=== PATIENT | female | born 1955 | race Caucasian/White ===

== ENCOUNTER 2017-02-15 08:39 | Inpatient (IN) | payer OTHER ==
[2017-02-15 08:57] VITALS: BMI 27.3
[2017-02-15] MEDS ORDERED: SODIUM CHLORIDE 1,000 ML IV STA ×3 (09:07→15:12)
[2017-02-15] MEDS ORDERED: ACETAMINOPHEN 1000 MG/100 ML VIAL (NON FORMULARY) IVPB ONE ×2 (09:07→15:01)
[2017-02-15] MEDS ORDERED: ACETAMINOPHEN INJECTION 100 ML IVPB ONE ×2 (09:15→15:02)
[2017-02-15 09:19] LABS: BASOPHIL 0.4 % (0-2.0); EOSINOPHIL 0.1 % (0-4.5); MCH 28.7 pg (25.7-33.7); MCHC 32.6 g/dl (32.0-36.0); MEAN CELL VOLUME 88.2 fl (80-96); MEAN PLT VOLUME 9.6 fl (7.5-11.1); NEUTROPHILS 81.1 % (42.8-82.8); PLATELET COUNT 185 K/MM3 (134-434); WHITE BLOOD COUNT 14.6 K/mm3 (4.0-10.0)
--- NOTE | 2017-02-15 09:32 | PDOC ---
History of Present Illness - General Chief Complaint: Syncope/Near Syncope Stated Complaint: WEAKNESS & VOMITING Time Seen by Provider: 02/15/17 08:46 History Source: Patient Exam Limitations: No Limitations - History of Present Illness Initial Comments: 02/15/17 09:07 61-year-old female presents to the ED with complaints of intermittent vomiting since yesterday. Patient states had 2 episodes yesterday and then one in the middle night. Patient states she got up out of bed but unsure why but felt dizzy stating she felt as if the room was spinning. She states then she awoke with her by her side lying on the floor next to her bed. Patient states at that time had no chest pain, shortness of breath, visual changes, palpitations, or was actively vomiting. Patient states then was assisted to standing position by her and was refusing medical care and took a shower. The then notified another family member who then called EMS and when EMS arrived patient was asymptomatic except for complaints of left temporal frontal throbbing pressure. Patient had normal vital signs upon EMS arrival. Patient denies any recent change in medications, recent change in diet , or recent change in weight. Patient with history of diabetes, hypertension and dyslipidemia and asthma. Presenting Symptoms: Dizziness, Syncope Timing/Duration: reports: intermittent, gone now Associated Symptoms: Yes: Dizziness, Syncope, Vomiting Past History - Travel Traveled outside of the country in the last 30 days: No - Past Medical History Allergies/Adverse Reactions: Allergies Allergy/AdvReac Type Severity Reaction Status Date / Time aspirin Allergy Verified 02/15/17 08:49 Home Medications: Ambulatory Orders Albuterol Sulfate Inhaler - [Ventolin HFA Inhaler -] 2 inh IH Q4H #1 inh Atorvastatin Calcium [Lipitor] 10 mg PO DAILY 04/09/12 Montelukast Na [Singulair -] 5 mg PO HS 04/09/12 Amlodipine Besylate [Norvasc -] 10 mg PO DAILY 11/13/14 Enalapril Maleate [Vasotec -] 20 mg PO DAILY 11/13/14 Glyburide/Metformin HCl [Glyburide-Metformin 5-500 mg] 1 each PO DAILY 11/13/14 Levothyroxine [Synthroid -] 112 mcg PO DAILY 11/13/14 Sitagliptin Phosphate [Januvia -] 50 mg PO DAILY 11/13/14 Sulfamethoxazole/Trimethoprim [Bactrim Ds -] 1 tab PO BID #14 tablet 12/04/14 Asthma: Yes Diabetes: Yes Disorders: Yes (GERD; DIVERTICULOSIS) HTN: Yes Hypercholesterolemia: Yes Thyroid Disease: Yes - Immunization History Immunization Up to Date: Yes - Psycho/Social/Smoking Cessation Hx Anxiety: No Suicidal Ideation: No Smoking Status: No Smoking History: Never smoked Number of Cigarettes Smoked Daily: 0 Information on smoking cessation initiated: No Hx Alcohol Use: No Drug/Substance Use Hx: No Substance Use Type: None Hx Substance Use Treatment: No Patient Lives Alone: No Lives with/in: spouse/SO Review of Systems - Review of Systems Able to Perform ROS?: Yes Constitutional: No: Symptoms Reported HEENTM: No: Symptoms Reported Cardiac (ROS): Yes: Lightheadedness, Syncope ABD/GI: Yes: Poor Appetite, Poor Fluid Intake, Vomiting Musculoskeletal: No: Symptoms Reported Integumentary: No: Symptoms Reported Neurological: Yes: Headache, Dizziness Hematologic/Lymphatic: No: Symptoms Reported *Physical Exam - Vital Signs Last Vital Signs Temp Pulse Resp BP Pulse Ox 98.7 F 82 18 110/63 97 02/15/17 08:49 02/15/17 11:30 02/15/17 08:49 02/15/17 11:30 02/15/17 08:49 - Physical Exam General Appearance: Yes: Nourished, Appropriately Dressed. No: Apparent Distress HEENT: positive: EOMI, BENJY, TMs Normal, Pharynx Normal. negative: Pale Conjunctivae Neck: positive: Supple Respiratory/Chest: positive: Lungs Clear, Normal Breath Sounds. negative: Respiratory Distress, Accessory Muscle Use Cardiovascular: positive: Regular Rhythm, Regular Rate. negative: Murmur Gastrointestinal/Abdominal: positive: Soft. negative: Tenderness Musculoskeletal: negative: CVA Tenderness, Vertebral Tenderness Extremity: negative: Normal Capillary Refill, Pedal Edema Integumentary: positive: Normal Color, Warm, Moist Neurologic: positive: Fully Oriented, Normal Mood/Affect, Motor Strength 5/5 Heart Score/ECG Review - History History: Slightly suspicious - Electrocardiogram EKG: Normal - Age Age: 45-65 - Risk Factors Risk Factors Heart Score: Yes Hx Hypercholesterolemia, Yes Hx Hypertension, Yes Hx Diabetes Based on the list above the patient has:: >/=3 risk factors or Hx atherosclerotic disease - Troponin Troponin: </= normal limit - Score Heart Score - Total: 3 - ECG Intrepretation Rhythm: Regular Rhythm (rate 94 . Normal sinus rhythm. No ST elevation or depression noted) ED Treatment Course - LABORATORY CBC & Chemistry Diagram: 02/15/17 09:02 02/15/17 09:02 - ADDITIONAL ORDERS Additional order review: Laboratory Results 02/15/17 02/15/17 02/15/17 09:07 09:02 08:50 Sodium 138 Potassium 4.2 Chloride 100 Carbon Dioxide 28 Anion Gap 10 BUN 16 D Creatinine 1.0 Creat Clearance w eGFR 56.00 POC Glucometer [phone] Random Glucose 285 H Calcium 8.7 Magnesium 1.7 L Total Bilirubin 0.5 D AST 10 L D ALT 22 D Alkaline Phosphatase 79 Creatine Kinase 68 Troponin I < 0.02 Total Protein 7.2 Albumin 3.3 L Urine Color Ltyellow Urine Appearance Cloudy Urine pH 6.0 Urine Protein 1+ H Urine Glucose (UA) 1+ H Urine Ketones Negative Urine Blood 2+ H Urine Nitrite Positive Urine Bilirubin Negative Urine Urobilinogen Negative Ur Leukocyte Esterase 3+ H Urine RBC 2 Urine WBC 342 Ur Epithelial Cells Rare Urine Bacteria Rare Urine Yeast Few 02/15/17 02/15/17 09:02 08:50 RBC 4.89 MCV 88.2 MCHC 32.6 RDW 13.0 MPV 9.6 Neutrophils % 81.1 D Lymphocytes % 9.6 D Monocytes % 8.8 Eosinophils % 0.1 D Basophils % 0.4 POC Glucometer [id number] - RADIOLOGY Radiology Studies Ordered: Category Date Time Status CERVICAL SPINE CT W/O CONTR [CT] Stat CT Scan 02/15/17 10:[address] WITHOUT CONTRAST [CT] Stat CT Scan 02/15/17 09:55 Completed CHEST X-RAY PORTABLE* [RAD] Stat Radiology 02/15/17 09:07 Completed - Medications Given in the ED: ED Medications Discontinued Medications Generic Name Dose Route Start Last Admin Trade Name Freq PRN Reason Stop Dose Admin Acetaminophen 1,000 mg 02/15/17 09:07 02/15/17 09:21 Ofirmev Injection - IVPB 02/15/17 09:08 1,000 mg ONCE ONE Administration Sodium Chloride 1,000 mls @ 1,000 mls/hr 02/15/17 09:07 02/15/17 09:21 Normal Saline - IV 02/15/17 10:06 1,000 mls/hr ASDIR STA Administration Sodium Chloride 1,000 mls @ 1,000 mls/hr 02/15/17 11:01 02/15/17 11:03 Normal Saline - IV 02/15/17 12:00 1,000 mls/hr ASDIR STA Administration Medical Decision Making - Medical Decision Making 02/15/17 10:02 Heart score 3. Patient here for evaluation of syncopal episode after standing up at around 4:30 this morning to go to the bathroom. Patient states was having vomiting since yesterday and states when she stood up she felt lightheaded as if the room was spinning. Patient denied any visual changes, chest pain shortness of breath or headache at that time. Patient was found by who awoke due to the noise of her falling and found her face up in no acute distress. On exam patient had no acute findings. Vital signs are stable. Patient complaining of frontal and temporal throbbing pressure. Patient ordered for syncope workup including a head and cervical CT. Patient also slightly orthostatic . Patient ordered for IV fluids, IV Tylenol BGM 301 upon arrival. 02/15/17 10:46 CT of the head and cervical spine are negative for acute findings. There is no signs of intracranial pathology, gross fracture or subluxation. Chest x-ray shows no acute pathology and no significant change since 12/18/2015. Patient states feeling better after receiving IV fluids and IV Tylenol. Laboratory Tests 02/15/17 02/15/17 09:02 09:02 WBC 14.6 H D Hgb 14.0 Hct 43.1 Plt Count 185 Sodium 138 Potassium 4.2 Chloride 100 Carbon Dioxide 28 Anion Gap 10 BUN 16 D Creatinine 1.0 Random Glucose 285 H Calcium 8.7 Magnesium 1.7 L Total Bilirubin 0.5 D AST 10 L D ALT 22 D Alkaline Phosphatase 79 Creatine Kinase 68 Troponin I < 0.02 Total Protein 7.2 Albumin 3.3 L 02/15/17 11:55 The daughter and have now around and states patient had an episode of incontinence when she was found on the floor this morning at 4:30. The daughter then helped her get cleaned up which patient at this point is unable to recall the event of her being changed. Upon repeating patient's vital signs to assess for continual orthostatic hypotension, patient was found wet with urine in the bed and states did not even know she was wet. I am concerned with pt unable to recall events, new reported information and acute incontinence. Patient was not found to be orthostatic on repeat vitals. Awaiting consultation of Dr. Sandhu 02/15/17 13:10 Patient seen by hospitalist and accepted to telemetry inpatient. Patient also will be seen by neurologist, Dr. sandhu who is recommending an MRI. Hospitalist will place ordered. 02/15/17 15:12 Laboratory Tests 02/15/17 09:07 Urine Blood 2+ H Urine Nitrite Positive Ur Leukocyte Esterase 3+ H Urine WBC 342 Pt with a noted 104 temperature patient ordered now for blood cultures, urine culture, lactic acid, IV Tylenol IV fluids and 1 g of ceftriaxone. Hospitalist was made aware. *DC/Admit/Observation/Transfer Diagnosis at time of Disposition: Acute memory impairment Syncope Qualifiers: Syncope type: unspecified Qualified Code(s): R55 - Syncope and collapse - Discharge Dispostion Admit: Yes Decision to Admit order Date/Time: Decision to Admit Order Category Date Time Status Decision to Admit to Hospital Routine Admission 02/15/17 13:11 Active
[2017-02-15 10:05] LABS: ALBUMIN 3.3 g/dl (3.4-5.0); ANION GAP 10 (8-16); BILIRUBIN,TOTAL 0.5 mg/dL (0.2-1.0); CALCIUM 8.7 mg/dL (8.5-10.1); CO2 28 mmol/L (21-32); GLUCOSE,RANDOM 285 mg/dL (74-106); MAGNESIUM 1.7 mg/dL (1.8-2.4); SGOT/AST 10 U/L (15-37); SGPT/ALT 22 U/L (12-78); TOT PROT 7.2 g/dl (6.4-8.2)
[2017-02-15 10:10] LABS: ALK PHOS 79 U/L (45-117); CPK 68 IU/L (26-192); TROPONIN I < 0.02 ng/ml (0.00-0.05)
--- NOTE | 2017-02-15 13:07 | EKG ---
Test Reason : Blood Pressure : / mmHG Vent. Rate : 094 BPM Atrial Rate : 094 BPM P-R Int : 144 ms QRS Dur : 084 ms QT Int : 356 ms P-R-T Axes : 073 045 056 degrees QTc Int : 445 ms NORMAL SINUS RHYTHM POSSIBLE LEFT ATRIAL ENLARGEMENT BORDERLINE ECG NO PREVIOUS ECGS AVAILABLE REPEAT EKG IF CLINICALLY INDICATED Confirmed by TAMY TRACEY MD ([id number]) on 02/15/2017 1:06:45 PM Referred By: Confirmed By:TAMY TRACEY MD
--- NOTE | 2017-02-15 13:24 | CONSULT ---
Consult - text type - Consultation Consultation Note: Neurology History of Present Illness 61-year-old female presents to the ED with complaints of intermittent vomiting since yesterday. Patient states had 2 episodes yesterday and then one in the middle night. Patient states she got up out of bed but unsure why but felt dizzy stating she felt as if the room was spinning. She states then she awoke with her by her side lying on the floor next to her bed. Patient states at that time had no chest pain, shortness of breath, visual changes, palpitations, or was actively vomiting. Patient states then was assisted to standing position by her and was refusing medical care and took a shower. Further history obtained described incontinence and with limited recollection of event. CT head completed and no acute changes. CT C spine reviewed as well and stable. Patient remains awake, alert, responsive in bed but fatiged appearing. Spoke with ER and resident about MRI brain to further evaluate. Past History - Travel Traveled outside of the country in the last 30 days: No - Past Medical History Allergies/Adverse Reactions: Allergies Allergy/AdvReac Type Severity Reaction Status Date / Time aspirin Allergy Verified 02/15/17 08:49 Home Medications: Ambulatory Orders Albuterol Sulfate Inhaler - [Ventolin HFA Inhaler -] 2 inh IH Q4H #1 inh Atorvastatin Calcium [Lipitor] 10 mg PO DAILY 04/09/12 Montelukast Na [Singulair -] 5 mg PO HS 04/09/12 Amlodipine Besylate [Norvasc -] 10 mg PO DAILY 11/13/14 Enalapril Maleate [Vasotec -] 20 mg PO DAILY 11/13/14 Glyburide/Metformin HCl [Glyburide-Metformin 5-500 mg] 1 each PO DAILY 11/13/14 Levothyroxine [Synthroid -] 112 mcg PO DAILY 11/13/14 Sitagliptin Phosphate [Januvia -] 50 mg PO DAILY 11/13/14 Sulfamethoxazole/Trimethoprim [Bactrim Ds -] 1 tab PO BID #14 tablet 12/04/14 Asthma: Yes Diabetes: Yes Disorders: Yes (GERD; DIVERTICULOSIS) HTN: Yes Hypercholesterolemia: Yes Thyroid Disease: Yes - Immunization History Immunization Up to Date: Yes - Psycho/Social/Smoking Cessation Hx Anxiety: No Suicidal Ideation: No Smoking Status: No Smoking History: Never smoked Number of Cigarettes Smoked Daily: 0 Information on smoking cessation initiated: No Hx Alcohol Use: No Drug/Substance Use Hx: No Substance Use Type: None Hx Substance Use Treatment: No Patient Lives Alone: No Lives with/in: spouse/SO Review of Systems - Review of Systems Able to Perform ROS?: Yes Constitutional: No: Symptoms Reported HEENTM: No: Symptoms Reported Cardiac (ROS): Yes: Lightheadedness, Syncope ABD/GI: Yes: Poor Appetite, Poor Fluid Intake, Vomiting Musculoskeletal: No: Symptoms Reported Integumentary: No: Symptoms Reported Neurological: Yes: Headache, Dizziness Hematologic/Lymphatic: No: Symptoms Reported *Physical Exam - Vital Signs Last Vital Signs Temp Pulse Resp BP Pulse Ox 98.7 F 82 18 110/63 97 02/15/17 08:49 02/15/17 11:30 02/15/17 08:49 02/15/17 11:30 02/15/17 08:49 - Physical Exam General Appearance: Yes: Nourished, Appropriately Dressed. No: Apparent Distress HEENT: positive: EOMI, BENJY, TMs Normal, Pharynx Normal. negative: Pale Conjunctivae Neck: positive: Supple Respiratory/Chest: positive: Lungs Clear, Normal Breath Sounds. negative: Respiratory Distress, Accessory Muscle Use Cardiovascular: positive: Regular Rhythm, Regular Rate. negative: Murmur Gastrointestinal/Abdominal: positive: Soft. negative: Tenderness Musculoskeletal: negative: CVA Tenderness, Vertebral Tenderness Extremity: negative: Normal Capillary Refill, Pedal Edema Integumentary: positive: Normal Color, Warm, Moist Neurologic: positive: Fully Oriented, Normal Mood/Affect, Motor Strength 5/5 Laboratory Results 02/15/17 02/15/17 09:02 08:50 Sodium 138 Potassium 4.2 Chloride 100 Carbon Dioxide 28 Anion Gap 10 BUN 16 D Creatinine 1.0 Creat Clearance w eGFR 56.00 POC Glucometer 301.28286 Random Glucose 285 H Calcium 8.7 Magnesium 1.7 L Total Bilirubin 0.5 D AST 10 L D ALT 22 D Alkaline Phosphatase 79 Creatine Kinase 68 Troponin I < 0.02 Total Protein 7.2 Albumin 3.3 L 02/15/17 02/15/17 09:02 08:50 RBC 4.89 MCV 88.2 MCHC 32.6 RDW 13.0 MPV 9.6 Neutrophils % 81.1 D Lymphocytes % 9.6 D Monocytes % 8.8 Eosinophils % 0.1 D Basophils % 0.4 POC Glucometer [phone] - RADIOLOGY CT head and C spine reviewed Plan: 61-year-old female presents to the ED with complaints of intermittent vomiting since yesterday. Patient states had 2 episodes yesterday and then one in the middle night. Patient states she got up out of bed but unsure why but felt dizzy stating she felt as if the room was spinning. She states then she awoke with her by her side lying on the floor next to her bed. Patient states at that time had no chest pain, shortness of breath, visual changes, palpitations, or was actively vomiting. Patient states then was assisted to standing position by her and was refusing medical care and took a shower. Further history obtained described incontinence and with limited recollection of event. CT head completed and no acute changes. CT C spine reviewed as well and stable. Patient remains awake, alert, responsive in bed but fatiged appearing. Possibly micturation syncope? BP monitoring, range 110-130 acceptable MRI brain ordered Telemetry monitoring Tigher glycemic control, presented with BGM 301 Prefer BGM 80-130 range CHeck HGA1C, Continue Januvia Fall precautions Spoke with daughter in detail at bedside
[2017-02-15 15:00] LABS: URINE APPEARANCE CLOUDY; URINE BILIRUBIN NEGATIVE (NEGATIVE); URINE BLOOD 2+ (NEGATIVE); URINE COLOR LTYELLOW; URINE GLUCOSE (UA) 1+ (NEGATIVE); URINE KETONE NEGATIVE (NEGATIVE); URINE NITRITE POSITIVE (NEGATIVE); URINE UROBILINOGEN NEGATIVE mg/dL (0.2-1.0)
[2017-02-15 15:08] LABS: URINE LEUK ESTERASE 3+ (NEGATIVE); URINE PROTEIN 1+ (NEGATIVE)
[2017-02-15 15:09] LABS: URINE BACTERIA RARE /hpf (NONE SEEN); URINE RBC 2 /hpf (0-3); URINE WBC 342 /hpf (3-5); YEAST FEW
[2017-02-15] MEDS ORDERED: CEFTRIAXONE 1 GM in DEXTROSE 5%-WATER - 50 ML IVPB ONE (15:12)
--- NOTE | 2017-02-15 15:19 | PN ---
Teaching Attending Note Name of Resident: Benigno Duncan ATTENDING PHYSICIAN STATEMENT I saw and evaluated the patient. I reviewed the resident's note and discussed the case with the resident. I agree with the resident's findings and plan as documented. SUBJECTIVE: This is a 61 year old woman with a history of HTN, hyperlipidemia, hypothyroidism, type 2 DM, asthma, GERD who comes to the ER after passing out. Yesterday, she vomited twice. This morning she got out of bed to go to the bathroom and became dizzy. She doesn't remember anything else except waking up on the floor with her beside her. She was incontinent of urine. She refused to go to the ER. She took a shower and family called EMS. In ER, she was incontinent of urine again. OBJECTIVE: Vital Signs Period Temp Pulse Resp BP Sys/Stallings Pulse Ox Last 24 Hr 98.7 F 77-104 18 110-137/63-91 97 HEART: S1S2, RRR LUNGS: Clear ABDOMEN: Soft, non-tender, non-distended, normal BS EXTREMITIES: No edema ASSESSMENT AND PLAN: This is a 61 year old woman with a history of HTN, hyperlipidemia, hypothyroidism, type 2 DM, asthma, GERD who presented to the ER after passing out. 1. Syncope, possibly secondary to orthostatic hypotension - Monitor on telemetry - Serial troponins - Echocardiogram - IV fluid - Orthostatic vitals 2. Urinary incontinence with leukocytosis, possibly secondary to UTI - Check urinalysis 3. Possible sepsis (leukocytosis, fever) secondary to UTI - IV fluid - Check urinalysis 4. HTN - Continue Norvasc, Vasotec 5. Hyperlipidemia - Continue Lipitor 6. Hypothyroidism - Continue Synthroid 7. Type 2 DM - Hold Januvia, metformin, glyburide - Fingersticks with Novolog sliding scale 8. Asthma - Stable - Continue Singulair - Albuterol nebs as needed 9. Depression - Continue Lexapro
[2017-02-15] MEDS ORDERED: CEFTRIAXONE 50 ML ONE (15:21)
--- NOTE | 2017-02-15 15:52 | HP ---
CHIEF COMPLAINT: Syncope, fall, memory loss, urinary incontinence PCP: Does not remember name (as she has started seeing a new PCP and only saw them once) HISTORY OF PRESENT ILLNESS: 61 y/o English speaking F w/PMH of asthma, HLD, HTN, DM, hypothyroidism presents to the ER due to syncope and memory loss this AM. History translated by daughter who is at bedside. Pt has had 1 week of dysuria and increased frequency of urination. Over the past 3 days she has had progressively worsening dizziness, and has also had blurry vision over the last 3 days. She also c/o of SCOTT over the last 3 days alleviated with tylenol. 1 day prior to presentation she had 3 episodes of emesis as per daughter but pt does not remember vomiting. She does c/o chills 1 day prior to presentation but no fevers. This AM she had fallen upon trying to get up and was incontinent of urine and cleaned by daughter with help of pt's and taken to shower. The pt only remembers getting up, seeing her next to her after the fall but does not remember the fall, and being in the shower. She does not remember the incontinence as well. In the ER she was incontinent of urine again and has difficulty telling when she has urinate. According to the daughter the patient is still not back at baseline although she is AAOX3 and still seems forgetful. Pt denies any tenderness to head or neck, CP, SOB, cough, abd pain, diarrhea, fevers, blood in stool, recent travel, sick contacts. ER course was notable for: (1) CXR, Head CT, Cervical Spine CT (2) (3) Recent Travel: denies PAST MEDICAL HISTORY:asthma, HLD, HTN, DM, hypothyroidism PAST SURGICAL HISTORY: tubal ligation? Pt does not remember exact procedure Social History: Smoking: denies Alcohol: denies Drugs: denies Family History: Mother: diabetes. Father: Alzheimers Allergies aspirin Allergy (Verified 02/15/17 08:49) HOME MEDICATIONS: Home Medications Medication Instructions Recorded Albuterol Sulfate Inhaler - 2 inh IH Q4H #1 inh 04/09/12 [Ventolin HFA Inhaler -] Atorvastatin Calcium [Lipitor] 10 mg PO DAILY 04/09/12 Montelukast Na [Singulair -] 5 mg PO HS 04/09/12 Amlodipine Besylate [Norvasc -] 10 mg PO DAILY 11/13/14 Enalapril Maleate [Vasotec -] 20 mg PO DAILY 11/13/14 Glyburide/Metformin HCl 1 each PO DAILY 11/13/14 [Glyburide-Metformin 5-500 mg] Levothyroxine [Synthroid -] 112 mcg PO DAILY 11/13/14 Sitagliptin Phosphate [Januvia -] 50 mg PO DAILY 11/13/14 Sulfamethoxazole/Trimethoprim 1 tab PO BID #14 tablet 12/04/14 [Bactrim Ds -] REVIEW OF SYSTEMS CONSTITUTIONAL: Absent: fever, chills, diaphoresis, generalized weakness, malaise, loss of appetite, weight change HEENT: +blurry vision, photophobia CARDIOVASCULAR: +syncope Absent: chest pain, palpitations, irregular heart rate, peripheral edema RESPIRATORY: Absent: cough, shortness of breath, dyspnea with exertion GASTROINTESTINAL: +vomiting Absent: abdominal pain, abdominal distension, nausea, diarrhea, constipation, melena, hematochezia GENITOURINARY: Absent: dysuria, frequency, urgency, hesitancy, hematuria, flank pain, genital pain MUSCULOSKELETAL: Absent: myalgia, arthralgia, joint swelling, back pain, neck pain NEUROLOGIC: +dizziness, memory loss, mental status change, bladder incontinence , headache PHYSICAL EXAMINATION Vital Signs - 24 hr 02/15/17 14:50 Pulse Rate 97 H Respiratory 18 Rate Blood Pressure 215/110 O2 Sat by Pulse 97 Oximetry (%) GENERAL: Awake, alert, and fully oriented, in no acute distress. HEAD: Normal with no signs of trauma. EYES: extraocular movements intact, sclera anicteric, conjunctiva clear. No lid lag. EARS, NOSE, THROAT: Ears normal, nares patent, oropharynx clear without exudates. Moist mucous membranes. NECK: Normal range of motion, supple LUNGS: Breath sounds equal, clear to auscultation bilaterally. HEART: Tachycardic, normal S1 and S2 without murmur, rub or gallop. ABDOMEN: Soft, nontender, not distended, normoactive bowel sounds, no guarding, no rebound, no masses. MUSCULOSKELETAL: Normal range of motion at all joints. No bony deformities or tenderness. No CVA tenderness. LOWER EXTREMITIES: 2+ pulses, warm, well-perfused. No calf tenderness. No peripheral edema. NEUROLOGICAL: Normal speech. Gait not observed. PSYCHIATRIC: Cooperative. Good eye contact. Appropriate mood and affect. SKIN: Warm, dry CBCD WBC 14.6 K/mm3 (4.0-10.0) H D 02/15/17 09:02 RBC 4.89 M/mm3 (3.60-5.2) 02/15/17 09:02 Hgb 14.0 GM/dL (10.7-15.3) 02/15/17 09:02 Hct 43.1 % (32.4-45.2) 02/15/17 09:02 MCV 88.2 fl (80-96) 02/15/17 09:02 MCHC 32.6 g/dl (32.0-36.0) 02/15/17 09:02 RDW 13.0 % (11.6-15.6) 02/15/17 09:02 Plt Count 185 K/MM3 (134-434) 02/15/17 09:02 MPV 9.6 fl (7.5-11.1) 02/15/17 09:02 CMP Sodium 138 mmol/L (136-145) 02/15/17 09:02 Potassium 4.2 mmol/L (3.5-5.1) 02/15/17 09:02 Chloride 100 mmol/L (98-107) 02/15/17 09:02 Carbon Dioxide 28 mmol/L (21-32) 02/15/17 09:02 Anion Gap 10 (8-16) 02/15/17 09:02 BUN 16 mg/dL (7-18) D 02/15/17 09:02 Creatinine 1.0 mg/dL (0.55-1.02) 02/15/17 09:02 Creat Clearance w eGFR 56.00 (>60) 02/15/17 09:02 Random Glucose 285 mg/dL (74-106) H 02/15/17 09:02 Calcium 8.7 mg/dL (8.5-10.1) 02/15/17 09:02 Total Bilirubin 0.5 mg/dL (0.2-1.0) D 02/15/17 09:02 AST 10 U/L (15-37) L D 02/15/17 09:02 ALT 22 U/L (12-78) D 02/15/17 09:02 Alkaline Phosphatase 79 U/L (45-117) 02/15/17 09:02 Total Protein 7.2 g/dl (6.4-8.2) 02/15/17 09:02 Albumin 3.3 g/dl (3.4-5.0) L 02/15/17 09:02 CARDIAC ENZYMES Creatine Kinase 68 IU/L (26-192) 02/15/17 09:02 Troponin I < 0.02 ng/ml (0.00-0.05) 02/15/17 09:02 Laboratory Tests 02/15/17 02/15/17 09:02 15:15 Lactic Acid 1.3 Magnesium 1.7 L Urine Test Results Urine Color Ltyellow 02/15/17 09:07 Urine Appearance Cloudy 02/15/17 09:07 Urine pH 6.0 (5.0-8.0) 02/15/17 09:07 Urine Protein 1+ (NEGATIVE) H 02/15/17 09:07 Urine Glucose (UA) 1+ (NEGATIVE) H 02/15/17 09:07 Urine Ketones Negative (NEGATIVE) 02/15/17 09:07 Urine Blood 2+ (NEGATIVE) H 02/15/17 09:07 Urine Nitrite Positive (NEGATIVE) 02/15/17 09:07 Urine Bilirubin Negative (NEGATIVE) 02/15/17 09:07 Ur Leukocyte Esterase 3+ (NEGATIVE) H 02/15/17 09:07 Urine RBC 2 /hpf (0-3) 02/15/17 09:07 Urine WBC 342 /hpf (3-5) 02/15/17 09:07 Ur Epithelial Cells Rare /hpf (FEW) 02/15/17 09:07 Urine Bacteria Rare /hpf (NONE SEEN) 02/15/17 09:07 EKG: NSR @ 94 bpm, QTc 445 ms Imaging: CXR: No acute pathology Head CT/Cervical spine CT: No gross fracture or subluxation is seen. No gross disc herniation, spinal canal or foraminal stenosis are identified. ASSESSMENT/PLAN: 61 y/o English speaking F w/PMH of asthma, HLD, HTN, DM, hypothyroidism presents to the ER due to syncope and memory loss this AM. Found to have UTI on UA. -AMS, acute amnesia, syncope likely secondary to UTI with orthostatic hypotension -UA shows 3+ LE, 342 WBC, pt with dysuria and frequency -UCx ordered -ceftriaxone 1 g IV qd -NS @ 100 ml/hr -ECHO -monitor on tele -orthostatic vital signs in AM -MRI brain ordered -Urinary incontinence likely secondary to UTI -ceftriaxone 1 g IV qd -f/u UCx -Leukocytosis secondary to UTI -ceftriaxone 1 g IV qd -Lactic acid 1.3 -f/u BCx, UCx -HTN -c/w norvasc 10 mg po qd, enalapril 20 mg po qd -HLD -c/w atorvastatin 40 mg po qd -Hypothyroidism -c/w synthroid 112 mcg qd -DM -ISS, BGMs -check A1C -Hx of asthma -alb nebs q6h prn for sob/wheezing -c/w montelukast 10 mg po qhs -Depression -c/w escitalopram 10 mg po qd -DVT ppx -heparin 5000 units sq tid -FEN -NS @ 100 ml/hr -Mg repleted, monitor lytes -Diabetic diet -Dispo: -Admit to tele Visit type - Emergency Visit Emergency Visit: Yes ED Registration Date: 02/15/17 Care time: The patient presented to the Emergency Department on the above date and was hospitalized for further evaluation of their emergent condition. - New Patient This patient is new to me today: Yes Date on this admission: 02/16/17 - Critical Care Critical Care patient: No
[2017-02-15] MEDS: SODIUM CHLORIDE 1,000 ML IV SCH (17:17)
[2017-02-15] MEDS ORDERED: ALBUTEROL SO4 2.5/IPRATROPIUM 0.5 INH SOL 3 ML VIAL.NEB. NEB ONE ×2 (18:09→18:10)
[2017-02-15] MEDS ORDERED: MAGNESIUM OXIDE 400 MG TABLET (FP) PO ONE (19:25)
[2017-02-15] MEDS: ENALAPRIL MALEATE 10 MG TABLET (FP) PO SCH (21:20)
[2017-02-15] MEDS: ATORVASTATIN CA 40 MG TABLET (FP) PO SCH (21:20)
[2017-02-15] MEDS: MONTELUKAST NA 10 MG TABLET PO SCH (21:20)
[2017-02-15] MEDS: INSULIN SLIDING SCALE (NOVOLOG) 1 VIAL SQ SCH (21:21)
[2017-02-15] MEDS: HEPARIN NA (PORCINE) 5,000 UNITS/ML 1ML VIAL SQ SCH (21:21)
[2017-02-15] MEDS: amLODIPine BESYLATE 10 MG TABLET (FP) PO SCH (21:21)
[2017-02-16] MEDS ORDERED: ACETAMINOPHEN 325 MG TABLET (FP) PO ONE (05:53)
[2017-02-16] MEDS: INSULIN SLIDING SCALE (NOVOLOG) 1 VIAL SQ SCH ×4 (06:26→22:10)
[2017-02-16] MEDS: HEPARIN NA (PORCINE) 5,000 UNITS/ML 1ML VIAL SQ SCH ×3 (06:26→22:05)
[2017-02-16] MEDS: LEVOTHYROXINE NA 112 MCG TABLET (FP) PO SCH (06:26)
[2017-02-16] MEDS: ALBUTEROL SO4 0.083% IH SOL 2.5 MG/3 ML VIAL.NEB. NEB PRN (06:49)
[2017-02-16 08:08] LABS: BASOPHIL 0.3 % (0-2.0); EOSINOPHIL 0.3 % (0-4.5); MCH 29.3 pg (25.7-33.7); MCHC 33.1 g/dl (32.0-36.0); MEAN CELL VOLUME 88.4 fl (80-96); MEAN PLT VOLUME 10.1 fl (7.5-11.1); NEUTROPHILS 82.7 % (42.8-82.8); PLATELET COUNT 151 K/MM3 (134-434); RDW 13.2 % (11.6-15.6); WHITE BLOOD COUNT 9.9 K/mm3 (4.0-10.0)
--- NOTE | 2017-02-16 08:18 | PN ---
Progress Note, Physician Chief Complaint: ID Asked to see this 61 year old female with DM and admitted with urosepsis GNB in blood - Current Medication List Current Medications: Active Medications Albuterol Sulfate (Ventolin 0.083% Nebulizer Soln -) 1 amp NEB Q6H PRN PRN Reason: SHORT OF BREATH/WHEEZING Last Admin: 02/16/17 06:49 Dose: 1 amp Amlodipine Besylate (Norvasc -) 10 mg PO DAILY [facility] Last Admin: 02/15/17 21:21 Dose: 10 mg Atorvastatin Calcium (Lipitor -) 40 mg PO HS [facility] Last Admin: 02/15/17 21:20 Dose: 40 mg Enalapril Maleate (Vasotec -) 20 mg PO DAILY [facility] Last Admin: 02/15/17 21:20 Dose: 20 mg Escitalopram Oxalate (Lexapro -) 10 mg PO DAILY [facility] Heparin Sodium (Porcine) (Heparin -) 5,000 unit SQ TID [facility] Last Admin: 02/16/17 06:26 Dose: 5,000 unit Sodium Chloride (Normal Saline -) 1,000 mls @ 100 mls/hr IV ASDIR [facility] Last Admin: 02/15/17 17:17 Dose: 100 mls/hr Ceftriaxone Sodium (Rocephin 1gm Ivpb (Pre-Docked)) 50 mls @ 100 mls/hr IVPB DAILY [facility] Ceftriaxone Sodium 2 gm/ (Dextrose) 100 mls @ 200 mls/hr IVPB DAILY [facility] Insulin Aspart (Novolog Vial Sliding Scale -) 1 vial SQ ACHS ELIANE PRN Reason: Protocol Last Admin: 02/16/17 06:26 Dose: 4 units Levothyroxine Sodium (Synthroid -) 112 mcg PO DAILY@0700 [facility] Last Admin: 02/16/17 06:26 Dose: 112 mcg Montelukast Sodium (Singulair -) 10 mg PO HS [facility] Last Admin: 02/15/17 21:20 Dose: 10 mg - Objective Vital Signs: Vital Signs Temperature 101.6 F H 02/16/17 06:00 Pulse Rate 94 H 02/16/17 06:00 Respiratory Rate 18 02/16/17 06:00 Blood Pressure 142/68 02/16/17 06:00 O2 Sat by Pulse Oximetry (%) 95 02/15/17 20:38 Constitutional: Yes: Well Nourished, No Distress, Diaphoresis Neck: Yes: WNL, Supple Cardiovascular: Yes: S1, S2 Respiratory: Yes: WNL, Regular, CTA Bilaterally Gastrointestinal: Yes: WNL, Normal Bowel Sounds, Soft, Vomiting, Other ( suptrapubic tenderness) Problem List - Problems (1) Diabetes 1.5, managed as type 1 Code(s): E10.9 - TYPE 1 DIABETES MELLITUS WITHOUT COMPLICATIONS (2) Gram-negative bacteremia Code(s): R78.81 - BACTEREMIA (3) Sepsis Code(s): A41.9 - SEPSIS, UNSPECIFIED ORGANISM Assessment/Plan Microbiology 02/15/17 15:15 Blood - Peripheral Venous Blood Culture - Preliminary Pending Organism 02/15/17 15:15 Blood - Peripheral Venous Blood Culture - Preliminary Pending Organism Laboratory Tests 02/15/17 02/15/17 02/15/17 09:02 09:02 09:07 WBC 14.6 H D Hgb 14.0 Hct 43.1 Plt Count 185 Creat Clearance w eGFR 56.00 Total Bilirubin 0.5 D AST 10 L D ALT 22 D Alkaline Phosphatase 79 Total Protein 7.2 Ur Leukocyte Esterase 3+ H Urine RBC 2 Urine WBC 342 Assessment Complicated urinary tract infection with GNB in blood culture Plan Continue current therapy Ceftriaxone Renal sonogram Jeannie WEBSTER
[2017-02-16 08:52] LABS: ALBUMIN 2.8 g/dl (3.4-5.0); ALK PHOS 75 U/L (45-117); ANION GAP 13 (8-16); BILIRUBIN,TOTAL 0.5 mg/dL (0.2-1.0); CALCIUM 8.1 mg/dL (8.5-10.1); CO2 22 mmol/L (21-32); CREATININE 0.6 mg/dL (0.55-1.02); GLUCOSE,RANDOM 203 mg/dL (74-106); MAGNESIUM 1.7 mg/dL (1.8-2.4); SGOT/AST 9 U/L (15-37); SGPT/ALT 17 U/L (12-78); TOT PROT 6.2 g/dl (6.4-8.2)
[2017-02-16] MEDS ORDERED: DEXTROSE 5%-WATER 100 ML IVPB ONE (09:13)
[2017-02-16] MEDS: CEFTRIAXONE 2 GM in DEXTROSE 5%-WATER 100 ML IVPB SCH (09:39)
[2017-02-16] MEDS: ENALAPRIL MALEATE 10 MG TABLET (FP) PO SCH (09:40)
[2017-02-16] MEDS: ESCITALOPRAM OXALATE 10 MG TABLET (FP) PO SCH (09:40)
[2017-02-16] MEDS: amLODIPine BESYLATE 10 MG TABLET (FP) PO SCH (09:40)
[2017-02-16] MEDS ORDERED: CEFTRIAXONE 50 ML IVPB SCH (10:00)
--- NOTE | 2017-02-16 10:25 | CONS ---
INFECTIOUS DISEASE CONSULTATION DATE OF CONSULTATION: DATE OF DICTATION: 02/16/2017 This is a 61-year-old diabetic female who presented yesterday with a chief complaint of intermittent episodes of vomiting at home. She also noted getting out of bed that she felt dizzy and ended up having to lie down on the floor, at which time she was brought to the hospital. Here, she was noted to be febrile and was empirically treated for a possible urinary tract infection and given intravenous fluids. She is a known diabetic and takes glyburide and metformin at home. She also has hypertension and asthma. This morning, blood cultures are now positive for gram-negative rods in 3 out of 4 bottles. She notes recent infection for which she was treated with antibiotics several months ago by her PMD. Currently, she notes suprapubic discomfort. MEDICATIONS: Albuterol, atorvastatin, Singulair, amlodipine, enalapril, glyburide, metformin, levothyroxine, and Januvia. ALLERGIES: None known. SOCIAL HISTORY: Lives with her . Never smoked. No history of substance abuse. HIV status unknown. FAMILY HISTORY: Reviewed and noncontributory. REVIEW OF SYSTEMS: Respiratory: No cough, shortness of breath. Cardiac: No chest pain, palpitations, syncope, murmur. Gastrointestinal: Positive episodes of vomiting, nausea. No blood per rectum, diarrhea, hematemesis. Genitourinary: Suprapubic discomfort. Denies hematuria or dysuria. PHYSICAL EXAMINATION: Vital signs: The temperature was 101.6, pulse 94, blood pressure 142/68, respirations 18. Neck: Supple. Lungs: Clear P and A. Heart: S1, S2. Regular rhythm without audible murmur. Abdomen: Soft. Nontender. Positive suprapubic tenderness. No guarding, rebound, organomegaly. Extremities: No clubbing, cyanosis, edema or CVA tenderness. Urinalysis: Leukocyte esterase 3+, RBCs 2, white cells 342. White count of 14.6, hemoglobin 14, platelets of 185. BUN 16, creatinine 1.0, creatinine clearance 56. Liver enzymes within normal limits. ASSESSMENT: A 61-year-old diabetic female who presents with urosepsis. Now with report of gram-negative rods in the blood cultures. Suspect this the major factor in her initial symptoms of dizziness, nausea and weakness. We will empirically continue to treat her with ceftriaxone 2 g intravenous q.24 hours, pending blood and urine cultures. We will order a renal sonogram, given her diabetes and renal insufficiency, as well as urosepsis, to look for kidney stones and/or hydronephrosis. Case discussed with Dr. Odell, her primary care doctor here. ULISSES BAGLEY M.D. [id number]
--- NOTE | 2017-02-16 11:28 | PN ---
Physical Exam: SUBJECTIVE: Patient seen and examined. Patient feels better. She denies abdominal pain, nausea, dysuria, incontinence of urine. She is urinating frequently. OBJECTIVE: Vital Signs Period Temp Pulse Resp BP Sys/Stallings Pulse Ox Last 24 Hr 97.6 F-102.6 F 79-106 16-18 120-215/66-110 94-97 GENERAL: The patient is awake, alert, and fully oriented, in no acute distress. LUNGS: Breath sounds equal, clear to auscultation bilaterally, no wheezes, no crackles, no accessory muscle use. HEART: Regular rate and rhythm, S1, S2 without murmur, rub or gallop. ABDOMEN: Soft, nontender, nondistended, normoactive bowel sounds, no guarding, no rebound, no hepatosplenomegaly, no masses. EXTREMITIES: 2+ pulses, warm, well-perfused, no edema. Laboratory Results - last 24 hr 02/15/17 02/15/17 02/15/17 15:15 18:25 21:19 WBC RBC Hgb Hct MCV MCH MCHC RDW Plt Count MPV Neutrophils % Lymphocytes % Monocytes % Eosinophils % Basophils % Sodium Potassium Chloride Carbon Dioxide Anion Gap BUN Creatinine Creat Clearance w eGFR POC Glucometer 275 Random Glucose Hemoglobin A1c % Lactic Acid 1.3 Calcium Magnesium Total Bilirubin AST ALT Alkaline Phosphatase Troponin I < 0.02 Total Protein Albumin 02/16/17 02/16/17 02/16/17 06:25 07:00 07:00 WBC 9.9 D RBC 4.48 Hgb 13.1 Hct 39.6 MCV 88.4 MCH 29.3 MCHC 33.1 RDW 13.2 Plt Count 151 MPV 10.1 Neutrophils % 82.7 Lymphocytes % 9.6 Monocytes % 7.1 Eosinophils % 0.3 D Basophils % 0.3 Sodium 140 Potassium 3.5 Chloride 105 Carbon Dioxide 22 D Anion Gap 13 BUN 7 D Creatinine 0.6 D Creat Clearance w eGFR > 60 POC Glucometer 219 Random Glucose 203 H D Hemoglobin A1c % Lactic Acid Calcium 8.1 L Magnesium 1.7 L Total Bilirubin 0.5 AST 9 L ALT 17 D Alkaline Phosphatase 75 Troponin I Total Protein 6.2 L Albumin 2.8 L 02/16/17 02/16/17 02/16/17 07:00 07:00 10:59 WBC RBC Hgb Hct MCV MCH MCHC RDW Plt Count MPV Neutrophils % Lymphocytes % Monocytes % Eosinophils % Basophils % Sodium Potassium Chloride Carbon Dioxide Anion Gap BUN Creatinine Creat Clearance w eGFR POC Glucometer 232 Random Glucose Hemoglobin A1c % 9.3 H Lactic Acid Calcium Magnesium Total Bilirubin AST ALT Alkaline Phosphatase Troponin I < 0.02 Total Protein Albumin Active Medications Generic Name Dose Route Start Last Admin Trade Name Freq PRN Reason Stop Dose Admin Albuterol Sulfate 1 amp 02/15/17 17:02 02/16/17 06:49 Ventolin 0.083% Nebulizer Soln - NEB 1 amp Q6H PRN Administration SHORT OF BREATH/WHEEZING Amlodipine Besylate 10 mg 02/15/17 17:00 02/16/17 09:40 Norvasc - PO 10 mg DAILY ELIANE Administration Atorvastatin Calcium 40 mg 02/15/17 22:00 02/15/17 21:20 Lipitor - PO 40 mg HS ELIANE Administration Enalapril Maleate 20 mg 02/15/17 17:00 02/16/17 09:40 Vasotec - PO 20 mg DAILY ELIANE Administration Escitalopram Oxalate 10 mg 02/16/17 10:00 02/16/17 09:40 Lexapro - PO 10 mg DAILY ELIANE Administration Heparin Sodium (Porcine) 5,000 unit 02/15/17 22:00 02/16/17 06:26 Heparin - SQ 5,000 unit TID ELIANE Administration Sodium Chloride 1,000 mls @ 100 mls/hr 02/15/17 17:00 02/15/17 17:17 Normal Saline - IV 100 mls/hr ASDIR ELIANE Administration Ceftriaxone Sodium 2 gm/ 100 mls @ 200 mls/hr 02/16/17 10:00 02/16/17 09:39 Dextrose IVPB 200 mls/hr DAILY ELIANE Administration Insulin Aspart 1 vial 02/15/17 22:00 02/16/17 06:26 Novolog Vial Sliding Scale - SQ 4 units ACHS ELIANE Administration Protocol Levothyroxine Sodium 112 mcg 02/16/17 07:00 02/16/17 06:26 Synthroid - PO 112 mcg DAILY@0700 ELIANE Administration Montelukast Sodium 10 mg 02/15/17 22:00 02/15/17 21:20 Singulair - PO 10 mg HS ELIANE Administration ASSESSMENT/PLAN: This is a 61 year old woman with a history of HTN, hyperlipidemia, hypothyroidism, type 2 DM, asthma, GERD who presented to the ER after passing out. 1. Sepsis secondary to UTI with bacteremia - Had temp 102.6 yesterday, 101.6 this morning - WBC improved - Blood cultures positive x 2 sets - follow-up identification, sensitivities - Continue Rocephin - Renal US pending - ID consult appreciated 2. Syncope secondary to orthostatic hypotension from sepsis - No arrhythmias noted - Troponin negative x 3 - Echocardiogram ordered - Continue IV fluid 3. Urinary incontinence secondary to UTI 4. HTN - Continue Norvasc, Vasotec 5. Hyperlipidemia - Continue Lipitor 6. Hypothyroidism - Continue Synthroid 7. Type 2 DM, uncontrolled - HgbA1c 9.3 - Januvia, metformin, glyburide held - Start Levemir - Continue Novolog sliding scale 8. Asthma - Stable - Continue Singulair, albuterol nebs as needed 9. Depression - Continue Lexapro Visit type - Emergency Visit Emergency Visit: Yes ED Registration Date: 02/15/17 Care time: The patient presented to the Emergency Department on the above date and was hospitalized for further evaluation of their emergent condition. - New Patient This patient is new to me today: No - Critical Care Critical Care patient: No - Discharge Referral Referred to [facility] Med P.C.: No
[2017-02-16] MEDS: SODIUM CHLORIDE 1,000 ML IV SCH (17:30)
[2017-02-16] MEDS: ACETAMINOPHEN 325 MG TABLET (FP) PO PRN (20:29)
[2017-02-16] MEDS: MONTELUKAST NA 10 MG TABLET PO SCH (22:05)
[2017-02-16] MEDS: ATORVASTATIN CA 40 MG TABLET (FP) PO SCH (22:05)
[2017-02-16] MEDS: INSULIN DETEMIR 100 UNITS/ML MDV SQ SCH (22:06)
[2017-02-17] MEDS: LEVOTHYROXINE NA 112 MCG TABLET (FP) PO SCH (06:12)
[2017-02-17] MEDS: HEPARIN NA (PORCINE) 5,000 UNITS/ML 1ML VIAL SQ SCH ×3 (06:13→22:07)
[2017-02-17] MEDS: INSULIN SLIDING SCALE (NOVOLOG) 1 VIAL SQ SCH ×4 (06:15→22:07)
[2017-02-17] MEDS ORDERED: DEXTROSE 5%-WATER 100 ML IVPB ONE (08:54)
[2017-02-17] MEDS: ESCITALOPRAM OXALATE 10 MG TABLET (FP) PO SCH (09:14)
[2017-02-17] MEDS: amLODIPine BESYLATE 10 MG TABLET (FP) PO SCH (09:14)
[2017-02-17] MEDS: CEFTRIAXONE 2 GM in DEXTROSE 5%-WATER 100 ML IVPB SCH (09:14)
[2017-02-17] MEDS: ENALAPRIL MALEATE 10 MG TABLET (FP) PO SCH (09:14)
[2017-02-17] MEDS: ACETAMINOPHEN 325 MG TABLET (FP) PO PRN ×2 (09:20→19:29)
--- NOTE | 2017-02-17 09:24 | PN ---
Physical Exam: SUBJECTIVE: Patient seen and examined at bed side. She is doing much better . No Acute events over night. OBJECTIVE: Vital Signs Period Temp Pulse Resp BP Sys/Stallings Pulse Ox Last 24 Hr 98.4 F-101.4 F 78-101 18-18 120-162/66-95 96-96 GENERAL: The patient is awake, alert, and fully oriented, in no acute distress. HEAD: Normal with no signs of trauma. EYES: PERRL, extraocular movements intact, sclera anicteric, conjunctiva clear. No ptosis. ENT: Ears normal, nares patent, oropharynx clear without exudates, moist mucous membranes. NECK: Trachea midline, full range of motion, supple. LUNGS: Breath sounds equal, clear to auscultation bilaterally, no wheezes, no crackles, no accessory muscle use. HEART: Regular rate and rhythm, S1, S2 without murmur, rub or gallop. ABDOMEN: Soft, nontender, nondistended, normoactive bowel sounds, no guarding, no rebound, no hepatosplenomegaly, no masses. EXTREMITIES: 2+ pulses, warm, well-perfused, no edema. NEUROLOGICAL: Cranial nerves II through XII grossly intact. Normal speech, gait not observed. PSYCH: Normal mood, normal affect. SKIN: Warm, dry, normal turgor, no rashes or lesions noted Laboratory Results - last 24 hr 02/16/17 02/16/17 02/17/17 10:59 22:04 06:12 POC Glucometer 232 164 152 Active Medications Generic Name Dose Route Start Last Admin Trade Name Freq PRN Reason Stop Dose Admin Acetaminophen 650 mg 02/16/17 20:03 02/17/17 09:20 Tylenol - PO 650 mg Q6H PRN Administration FEVER OR PAIN Albuterol Sulfate 1 amp 02/15/17 17:02 02/16/17 06:49 Ventolin 0.083% Nebulizer Soln - NEB 1 amp Q6H PRN Administration SHORT OF BREATH/WHEEZING Amlodipine Besylate 10 mg 02/15/17 17:00 02/17/17 09:14 Norvasc - PO 10 mg DAILY ELIANE Administration Atorvastatin Calcium 40 mg 02/15/17 22:00 02/16/17 22:05 Lipitor - PO 40 mg HS ELIANE Administration Enalapril Maleate 20 mg 02/15/17 17:00 02/17/17 09:14 Vasotec - PO 20 mg DAILY ELIANE Administration Escitalopram Oxalate 10 mg 02/16/17 10:00 02/17/17 09:14 Lexapro - PO 10 mg DAILY ELIANE Administration Heparin Sodium (Porcine) 5,000 unit 02/15/17 22:00 02/17/17 06:13 Heparin - SQ 5,000 unit TID ELIANE Administration Sodium Chloride 1,000 mls @ 100 mls/hr 02/15/17 17:00 02/16/17 17:30 Normal Saline - IV 100 mls/hr ASDIR ELIANE Administration Ceftriaxone Sodium 2 gm/ 100 mls @ 200 mls/hr 02/16/17 10:00 02/17/17 09:14 Dextrose IVPB 200 mls/hr DAILY ELIANE Administration Insulin Aspart 1 vial 02/15/17 22:00 02/17/17 06:15 Novolog Vial Sliding Scale - SQ 2 units ACHS ELIANE Administration Protocol Insulin Detemir 10 units 02/16/17 22:00 02/16/17 22:06 Levemir Vial SQ 10 units HS ELIANE Administration Levothyroxine Sodium 112 mcg 02/16/17 07:00 02/17/17 06:12 Synthroid - PO 112 mcg DAILY@0700 ELIANE Administration Montelukast Sodium 10 mg 02/15/17 22:00 02/16/17 22:05 Singulair - PO 10 mg HS ELIANE Administration ASSESSMENT/PLAN: 61 y/o Indonesian speaking F w/PMH of asthma, HLD, HTN, DM, hypothyroidism presents to the ER due to syncope and memory loss this AM. Found to have UTI on UA. # Sepsis Likely 2/2 to UTI with bacteremia -afebrile 24H. repeat Bcx sent today. - initial Bcx and Ucx with patel-sensitive Ecoli. will wait for repeat cx. -on Ceftriaxone day 4. cont current management ID on board. #-DM -ISS, BGMs -Hg A1C 9.3 - improved but above goal. -takes insulin at home. takes levemir and humalog 10 units BID. -will re-start humalog. cont to titrate levemir. iss. #AMS, acute amnesia, syncope likely secondary to UTI with orthostatic hypotension -UA shows 3+ LE, 342 WBC, pt with dysuria and frequency -UCx ordered -ceftriaxone 1 g IV qd -ECHO shows No hydronephrosis -monitor on tele -orthostatic vital signs Q AM -MRI brain ordered showes no acute infarct , puctate chronic left fronal subcortical infarct. 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 -Urinary incontinence likely secondary to UTI, resolved -ceftriaxone 1 g IV qd day 3 -f/u UCx -Leukocytosis secondary to UTI -ceftriaxone 1 g IV qd day 3 -Lactic acid 1.3 -f/u BCx, UCx -HTN, chronic - BP 139/79 -c/w norvasc 10 mg po qd, - increase ACEI to 40 mg PO qd -HLD, chronic -c/w atorvastatin 40 mg po qd -Hypothyroidism -c/w synthroid 112 mcg qd - Hypomagnesimia -resolved -DM, chronic -ISS, BGMs -Hg A1C 9.3 - improved but above goal. -takes insulin at home. takes levemir and humalog 10 units BID. -will re-start humalog. cont to titrate levemir. iss. -Hx of asthma, stable -alb nebs q6h prn for sob/wheezing -c/w montelukast 10 mg po qhs - no signs of acute exacerbation. -Depression -c/w escitalopram 10 mg po qd -DVT ppx -heparin 5000 units sq tid -FEN -on No fluids -Mg repleted, monitor lytes -Diabetic diet -Dispo: -Admit to tele Visit type - Emergency Visit Emergency Visit: Yes ED Registration Date: 02/15/17 Care time: The patient presented to the Emergency Department on the above date and was hospitalized for further evaluation of their emergent condition. - New Patient This patient is new to me today: No - Critical Care Critical Care patient: No - Discharge Referral Referred to [facility] Med P.C.: No
[2017-02-17] MEDS ORDERED: PT OWN MED DRAWER 7, Y5N ONE (09:42)
--- NOTE | 2017-02-17 09:45 | PN ---
Progress Note (short form) - Note Progress Note: Neurology History of Present Illness 61-year-old female presents to the ED with complaints of intermittent vomiting since yesterday. Patient states had 2 episodes yesterday and then one in the middle night. Patient states she got up out of bed but unsure why but felt dizzy stating she felt as if the room was spinning. She states then she awoke with her by her side lying on the floor next to her bed. Patient states at that time had no chest pain, shortness of breath, visual changes, palpitations, or was actively vomiting. Patient states then was assisted to standing position by her and was refusing medical care and took a shower. Further history obtained described incontinence and with limited recollection of event. CT head completed and no acute changes. CT C spine reviewed as well and stable. MRI brain completed and discussed with patient in detail at bedside. There were no new infarcts but old L frontal noted, possible R thalamic and R cerebellar foci. She is not on antiplatelet medication and states she is allergic to ASA (reports rash) and her locations are suspicious for hypertensive infarct, but I do believe she would benefit from antiplatelet medication, possibly plavix 75mg. Active Medications Acetaminophen (Tylenol -) 650 mg PO Q6H PRN PRN Reason: FEVER OR PAIN Last Admin: 02/17/17 09:20 Dose: 650 mg Albuterol Sulfate (Ventolin 0.083% Nebulizer Soln -) 1 amp NEB Q6H PRN PRN Reason: SHORT OF BREATH/WHEEZING Last Admin: 02/16/17 06:49 Dose: 1 amp Amlodipine Besylate (Norvasc -) 10 mg PO DAILY [facility] Last Admin: 02/17/17 09:14 Dose: 10 mg Atorvastatin Calcium (Lipitor -) 40 mg PO HS [facility] Last Admin: 02/16/17 22:05 Dose: 40 mg Enalapril Maleate (Vasotec -) 20 mg PO DAILY [facility] Last Admin: 02/17/17 09:14 Dose: 20 mg Escitalopram Oxalate (Lexapro -) 10 mg PO DAILY [facility] Last Admin: 02/17/17 09:14 Dose: 10 mg Heparin Sodium (Porcine) (Heparin -) 5,000 unit SQ TID [facility] Last Admin: 02/17/17 06:13 Dose: 5,000 unit Sodium Chloride (Normal Saline -) 1,000 mls @ 100 mls/hr IV ASDIR [facility] Last Admin: 02/16/17 17:30 Dose: 100 mls/hr Ceftriaxone Sodium 2 gm/ (Dextrose) 100 mls @ 200 mls/hr IVPB DAILY [facility] Last Admin: 02/17/17 09:14 Dose: 200 mls/hr Insulin Aspart (Novolog Vial Sliding Scale -) 1 vial SQ ACHS [facility] PRN Reason: Protocol Last Admin: 02/17/17 06:15 Dose: 2 units Insulin Detemir (Levemir Vial) 10 units [address] [facility] Last Admin: 02/16/17 22:06 Dose: 10 units Levothyroxine Sodium (Synthroid -) 112 mcg PO DAILY@0700 [facility] Last Admin: 02/17/17 06:12 Dose: 112 mcg Montelukast Sodium (Singulair -) 10 mg PO HS [facility] Last Admin: 02/16/17 22:05 Dose: 10 mg *Physical Exam Vital Signs Temperature 98.9 F 02/17/17 06:00 Pulse Rate 86 02/17/17 06:00 Respiratory Rate 18 02/17/17 06:00 Blood Pressure 153/88 02/17/17 06:00 O2 Sat by Pulse Oximetry (%) 96 02/17/17 06:00 - Physical Exam General Appearance: Yes: Nourished, Appropriately Dressed. No: Apparent Distress HEENT: positive: EOMI, BENJY, TMs Normal, Pharynx Normal. negative: Pale Conjunctivae Neck: positive: Supple Respiratory/Chest: positive: Lungs Clear, Normal Breath Sounds. negative: Respiratory Distress, Accessory Muscle Use Cardiovascular: positive: Regular Rhythm, Regular Rate. negative: Murmur Gastrointestinal/Abdominal: positive: Soft. negative: Tenderness Musculoskeletal: negative: CVA Tenderness, Vertebral Tenderness Extremity: negative: Normal Capillary Refill, Pedal Edema Integumentary: positive: Normal Color, Warm, Moist Neurologic: positive: Fully Oriented, Normal Mood/Affect, Motor Strength 5/5 CBCD WBC 9.9 K/mm3 (4.0-10.0) D 02/16/17 07:00 RBC 4.48 M/mm3 (3.60-5.2) 02/16/17 07:00 Hgb 13.1 GM/dL (10.7-15.3) 02/16/17 07:00 Hct 39.6 % (32.4-45.2) 02/16/17 07:00 MCV 88.4 fl (80-96) 02/16/17 07:00 MCHC 33.1 g/dl (32.0-36.0) 02/16/17 07:00 RDW 13.2 % (11.6-15.6) 02/16/17 07:00 Plt Count 151 K/MM3 (134-434) 02/16/17 07:00 MPV 10.1 fl (7.5-11.1) 02/16/17 07:00 CMP Sodium 140 mmol/L (136-145) 02/16/17 07:00 Potassium 3.5 mmol/L (3.5-5.1) 02/16/17 07:00 Chloride 105 mmol/L (98-107) 02/16/17 07:00 Carbon Dioxide 22 mmol/L (21-32) D 02/16/17 07:00 Anion Gap 13 (8-16) 02/16/17 07:00 BUN 7 mg/dL (7-18) D 02/16/17 07:00 Creatinine 0.6 mg/dL (0.55-1.02) D 02/16/17 07:00 Creat Clearance w eGFR > 60 (>60) 02/16/17 07:00 Calcium 8.1 mg/dL (8.5-10.1) L 02/16/17 07:00 Total Bilirubin 0.5 mg/dL (0.2-1.0) 02/16/17 07:00 AST 9 U/L (15-37) L 02/16/17 07:00 ALT 17 U/L (12-78) D 02/16/17 07:00 Alkaline Phosphatase 75 U/L (45-117) 02/16/17 07:00 Total Protein 6.2 g/dl (6.4-8.2) L 02/16/17 07:00 Albumin 2.8 g/dl (3.4-5.0) L 02/16/17 07:00 - RADIOLOGY CT head and C spine reviewed MRI brain reviewed Plan: 61-year-old female presents to the ED with complaints of intermittent vomiting since yesterday. Patient states had 2 episodes yesterday and then one in the middle night. Patient states she got up out of bed but unsure why but felt dizzy stating she felt as if the room was spinning. She states then she awoke with her by her side lying on the floor next to her bed. Patient states at that time had no chest pain, shortness of breath, visual changes, palpitations, or was actively vomiting. Patient states then was assisted to standing position by her and was refusing medical care and took a shower. Further history obtained described incontinence and with limited recollection of event. CT head completed and no acute changes. CT C spine reviewed as well and stable. Patient remains awake, alert, responsive in bed but fatiged appearing. Possibly micturation syncope BP monitoring, range 110-130 acceptable MRI brain reviewed, may benefit from antiplatelet given prior CVA noted on MRI Consider Plavix as she reports ASA allergy, will defer to primary, monitor for any allergy or bleeding Telemetry monitoring Tigher glycemic control, presented with BGM 301 Prefer BGM 80-130 range CHeck HGA1C, Continue Januvia Fall precautions
[2017-02-17] MEDS ORDERED: MAGNESIUM SULF 50% (8.12 MEQ/2 ML-1 GM VIAL) IVPB ONE (13:48)
--- NOTE | 2017-02-17 15:51 | PN ---
Progress Note, Physician Chief Complaint: UTI History of Present Illness: Patient seen and examined at bedside. She states that she subjectively feels better than she did yesterday, complaining only of mild suprapubic tenderness. Denies chest pain, SOB, nausea, vomiting, fever, chills, abdominal pain, diarrhea. Patient had a renal sono done showing no renal hydronephrosis. - Current Medication List Current Medications: Active Medications Acetaminophen (Tylenol -) 650 mg PO Q6H PRN PRN Reason: FEVER OR PAIN Last Admin: 02/17/17 09:20 Dose: 650 mg Albuterol Sulfate (Ventolin 0.083% Nebulizer Soln -) 1 amp NEB Q6H PRN PRN Reason: SHORT OF BREATH/WHEEZING Last Admin: 02/16/17 06:49 Dose: 1 amp Amlodipine Besylate (Norvasc -) 10 mg PO DAILY [facility] Last Admin: 02/17/17 09:14 Dose: 10 mg Atorvastatin Calcium (Lipitor -) 40 mg PO HS [facility] Last Admin: 02/16/17 22:05 Dose: 40 mg Enalapril Maleate (Vasotec -) 20 mg PO DAILY [facility] Last Admin: 02/17/17 09:14 Dose: 20 mg Escitalopram Oxalate (Lexapro -) 10 mg PO DAILY [facility] Last Admin: 02/17/17 09:14 Dose: 10 mg Heparin Sodium (Porcine) (Heparin -) 5,000 unit SQ TID [facility] Last Admin: 02/17/17 14:19 Dose: 5,000 unit Ceftriaxone Sodium 2 gm/ (Dextrose) 100 mls @ 200 mls/hr IVPB DAILY [facility] Last Admin: 02/17/17 09:14 Dose: 200 mls/hr Insulin Aspart (Novolog Vial Sliding Scale -) 1 vial SQ ACHS [facility] PRN Reason: Protocol Last Admin: 02/17/17 12:00 Dose: 6 units Insulin Detemir (Levemir Vial) 10 units SQ [facility] Last Admin: 02/16/17 22:06 Dose: 10 units Levothyroxine Sodium (Synthroid -) 112 mcg PO DAILY@0700 [facility] Last Admin: 02/17/17 06:12 Dose: 112 mcg Montelukast Sodium (Singulair -) 10 mg PO [facility] Last Admin: 02/16/17 22:05 Dose: 10 mg - Objective Vital Signs: Vital Signs Temperature 98.6 F 02/17/17 15:36 Pulse Rate 79 02/17/17 15:36 Respiratory Rate 18 02/17/17 11:04 Blood Pressure 128/71 02/17/17 15:36 O2 Sat by Pulse Oximetry (%) 97 02/17/17 10:39 Constitutional: Yes: Well Nourished, No Distress, Calm Eyes: Yes: Conjunctiva Clear, EOM Intact HENT: Yes: Atraumatic, Normocephalic Neck: Yes: Supple, Trachea Midline, Tenderness Cardiovascular: Yes: S1, S2. No: Gallop, Rub Respiratory: Yes: Regular, CTA Bilaterally. No: Rales, Rhonchi, SOB, Stridor, Tachypnea, Wheezes Gastrointestinal: Yes: Normal Bowel Sounds, Soft, Tenderness (Suprapubic) Genitourinary: Yes: WNL Musculoskeletal: Yes: WNL Extremities: Yes: WNL Edema: No Peripheral Pulses WNL: Yes Integumentary: Yes: WNL Neurological: Yes: Alert, Oriented, Cran Nerves II-XII Intact ...Motor Strength: WNL Psychiatric: Yes: Alert, Oriented Labs: CBC, BMP 02/16/17 07:00 02/16/17 07:00 - ....Imaging X-ray: Report Reviewed Cat Scan: Report Reviewed MRI: Report Reviewed Problem List - Problems (1) Gram-negative bacteremia Code(s): R78.81 - BACTEREMIA Assessment/Plan 61 year old female pmh HTN,HLD, hypothyroid, DMII, asthma, GERD s/p syncopal episode and UTI/bacteremia with E. coli -patient clinically improving -continue rocephin IV -monitor WBC/BP
--- NOTE | 2017-02-17 16:33 | PN ---
Teaching Attending Note Name of Resident: Augustus Bey ATTENDING PHYSICIAN STATEMENT I saw and evaluated the patient. I reviewed the resident's note and discussed the case with the resident. I agree with the resident's findings and plan as documented. SUBJECTIVE: feels better less fever OBJECTIVE: Vital Signs Period Temp Pulse Resp BP Sys/Stallings Pulse Ox Last 24 Hr 98.4 F-101.4 F 78-101 18-18 128-162/71-95 96-97 cor-rrr lungs clear abd soft,nt no CVAT +suprapubic tenderness to palpation ext no edema CBC, BMP 02/16/17 07:00 02/16/17 07:00 Microbiology 02/15/17 15:15 Blood - Peripheral Venous Blood Culture - Final Escherichia Coli 02/15/17 15:15 Urine - Urine Clean Catch Urine Culture - Preliminary Lactose Fermenting Neg Bacilli 02/15/17 15:15 Blood - Peripheral Venous Blood Culture - Preliminary Lactose Fermenting Neg Bacilli ASSESSMENT AND PLAN: ecoli bacteremia secondary to UTI continue ceftriaxone
--- NOTE | 2017-02-17 18:44 | PN ---
Teaching Attending Note Name of Resident: King Adams ATTENDING PHYSICIAN STATEMENT I saw and evaluated the patient. I reviewed the resident's note and discussed the case with the resident. I agree with the resident's findings and plan as documented. SUBJECTIVE:asymptomatic. no longer experiencing urinary incontinence. denies CP , SOB,fever, chills, N/V/C/D, dizzzyness or syncope or LOC. states shes on insulin at home as well as victoza OBJECTIVE: Last Vital Signs Temp Pulse Resp BP Pulse Ox 98.6 F 79 18 128/71 97 02/17/17 15:36 02/17/17 15:36 02/17/17 11:04 02/17/17 15:36 02/17/17 10:39 General NAD CV S1 S2 RRR no murmur/rub/gallop Lungs CTA B/L no wheezing/rales/rhonchi Abdomen soft NT/ND no suprapubic tenderness Extremities no pedal edema ASSESSMENT AND PLAN: 61 year old woman with a history of HTN, hyperlipidemia, hypothyroidism, type 2 DM, asthma, GERD who presented to the ER after passing out. 1. Sepsis secondary to UTI with bacteremia- Tm 101.4. will resend Bcx. initial set growing Ecoli. UCx with GNR. on Ceftriaxone. cont current management ID on board. 2. Syncope secondary to orthostatic hypotension from sepsis- no events on panel monitor. MRI brain done showing old CVA. agree with neuro would benefit from plavix as has asa allergy. echo pending. d/c IVF. neuro on board. 3. Urinary incontinence secondary to UTI- resolved 4. HTN- Continue Norvasc, Vasotec 5. Hyperlipidemia- Continue Lipitor 6. Hypothyroidism- Continue Synthroid 7. Type 2 DM- improved. A1c 9.3. states she takes insulin at home. pharmacy has no record. requested family to bring in home medications to confirm. control improved. cont levemir. titrate to optimize control. iss. 8. hypomagnesemia- Mg 1g 9. Asthma- Stable. no signs of acute exacerbation. 10. Depression- Continue Lexapro 11. DVT ppx- hep sq
[2017-02-17] MEDS: CLOPIDOGREL BISULFATE 75 MG TABLET (FP) PO SCH (19:29)
[2017-02-17] MEDS: INSULIN DETEMIR 100 UNITS/ML MDV SQ SCH (22:07)
[2017-02-17] MEDS: ATORVASTATIN CA 40 MG TABLET (FP) PO SCH (22:08)
[2017-02-17] MEDS: MONTELUKAST NA 10 MG TABLET PO SCH (22:08)
[2017-02-17] MEDS: ALBUTEROL SO4 0.083% IH SOL 2.5 MG/3 ML VIAL.NEB. NEB PRN (22:33)
[2017-02-18] MEDS: INSULIN SLIDING SCALE (NOVOLOG) 1 VIAL SQ SCH ×4 (06:34→22:08)
[2017-02-18] MEDS: LEVOTHYROXINE NA 112 MCG TABLET (FP) PO SCH (06:34)
[2017-02-18] MEDS: HEPARIN NA (PORCINE) 5,000 UNITS/ML 1ML VIAL SQ SCH ×3 (06:34→22:11)
[2017-02-18] MEDS ORDERED: DEXTROSE 5%-WATER 100 ML IVPB ONE (09:20)
--- NOTE | 2017-02-18 09:54 | PN ---
Progress Note (short form) - Note Progress Note: Neurology History of Present Illness 61-year-old female presents to the ED with complaints of intermittent vomiting since yesterday. Patient states had 2 episodes yesterday and then one in the middle night. Patient states she got up out of bed but unsure why but felt dizzy stating she felt as if the room was spinning. She states then she awoke with her by her side lying on the floor next to her bed. Patient states at that time had no chest pain, shortness of breath, visual changes, palpitations, or was actively vomiting. Patient states then was assisted to standing position by her and was refusing medical care and took a shower. Further history obtained described incontinence and with limited recollection of event. CT head completed and no acute changes. CT C spine reviewed as well and stable. MRI brain completed and discussed with patient in detail at bedside. There were no new infarcts but old L frontal noted, possible R thalamic and R cerebellar foci. She is not on antiplatelet medication and states she is allergic to ASA (reports rash) and her locations are suspicious for hypertensive infarct, but I do believe she would benefit from antiplatelet medication, patient started on Plavix 75. Echo completed and awaiting report. Neurologically stable at this time. Active Medications Acetaminophen (Tylenol -) 650 mg PO Q6H PRN PRN Reason: FEVER OR PAIN Last Admin: 02/17/17 19:29 Dose: 650 mg Albuterol Sulfate (Ventolin 0.083% Nebulizer Soln -) 1 amp NEB Q6H PRN PRN Reason: SHORT OF BREATH/WHEEZING Last Admin: 02/17/17 22:33 Dose: 1 amp Amlodipine Besylate (Norvasc -) 10 mg PO DAILY [facility] Last Admin: 02/17/17 09:14 Dose: 10 mg Atorvastatin Calcium (Lipitor -) 40 mg PO HS [facility] Last Admin: 02/17/17 22:08 Dose: 40 mg Clopidogrel Bisulfate (Plavix -) 75 mg PO DAILY [facility] Last Admin: 02/17/17 19:29 Dose: 75 mg Enalapril Maleate (Vasotec -) 40 mg PO DAILY [facility] Escitalopram Oxalate (Lexapro -) 10 mg PO DAILY [facility] Last Admin: 02/17/17 09:14 Dose: 10 mg Heparin Sodium (Porcine) (Heparin -) 5,000 unit SQ TID [facility] Last Admin: 02/18/17 06:34 Dose: 5,000 unit Ceftriaxone Sodium 2 gm/ (Dextrose) 100 mls @ 200 mls/hr IVPB DAILY [facility] Last Admin: 02/17/17 09:14 Dose: 200 mls/hr Insulin Aspart (Novolog Vial Sliding Scale -) 1 vial SQ ACHS [facility] PRN Reason: Protocol Last Admin: 02/18/17 06:34 Dose: Not Given Insulin Detemir (Levemir Vial) 10 units SQ [facility] Last Admin: 02/17/17 22:07 Dose: 10 units Levothyroxine Sodium (Synthroid -) 112 mcg PO DAILY@0700 [facility] Last Admin: 02/18/17 06:34 Dose: 112 mcg Montelukast Sodium (Singulair -) 10 mg PO [facility] Last Admin: 02/17/17 22:08 Dose: 10 mg *Physical Exam Vital Signs Temperature 98.8 F 02/18/17 06:00 Pulse Rate 80 02/18/17 06:00 Respiratory Rate 18 02/18/17 06:00 Blood Pressure 139/79 02/18/17 06:00 O2 Sat by Pulse Oximetry (%) 96 02/18/17 06:00 - Physical Exam General Appearance: Yes: Nourished, Appropriately Dressed. No: Apparent Distress HEENT: positive: EOMI, BENJY, TMs Normal, Pharynx Normal. negative: Pale Conjunctivae Neck: positive: Supple Respiratory/Chest: positive: Lungs Clear, Normal Breath Sounds. negative: Respiratory Distress, Accessory Muscle Use Cardiovascular: positive: Regular Rhythm, Regular Rate. negative: Murmur Gastrointestinal/Abdominal: positive: Soft. negative: Tenderness Musculoskeletal: negative: CVA Tenderness, Vertebral Tenderness Extremity: negative: Normal Capillary Refill, Pedal Edema Integumentary: positive: Normal Color, Warm, Moist Neurologic: positive: Fully Oriented, Normal Mood/Affect, Motor Strength 5/5 CBCD WBC 9.9 K/mm3 (4.0-10.0) D 02/16/17 07:00 RBC 4.48 M/mm3 (3.60-5.2) 02/16/17 07:00 Hgb 13.1 GM/dL (10.7-15.3) 02/16/17 07:00 Hct 39.6 % (32.4-45.2) 02/16/17 07:00 MCV 88.4 fl (80-96) 02/16/17 07:00 MCHC 33.1 g/dl (32.0-36.0) 02/16/17 07:00 RDW 13.2 % (11.6-15.6) 02/16/17 07:00 Plt Count 151 K/MM3 (134-434) 02/16/17 07:00 MPV 10.1 fl (7.5-11.1) 02/16/17 07:00 CMP Sodium 140 mmol/L (136-145) 02/16/17 07:00 Potassium 3.5 mmol/L (3.5-5.1) 02/16/17 07:00 Chloride 105 mmol/L (98-107) 02/16/17 07:00 Carbon Dioxide 22 mmol/L (21-32) D 02/16/17 07:00 Anion Gap 13 (8-16) 02/16/17 07:00 BUN 7 mg/dL (7-18) D 02/16/17 07:00 Creatinine 0.6 mg/dL (0.55-1.02) D 02/16/17 07:00 Creat Clearance w eGFR > 60 (>60) 02/16/17 07:00 Calcium 8.1 mg/dL (8.5-10.1) L 02/16/17 07:00 Total Bilirubin 0.5 mg/dL (0.2-1.0) 02/16/17 07:00 AST 9 U/L (15-37) L 02/16/17 07:00 ALT 17 U/L (12-78) D 02/16/17 07:00 Alkaline Phosphatase 75 U/L (45-117) 02/16/17 07:00 Total Protein 6.2 g/dl (6.4-8.2) L 02/16/17 07:00 Albumin 2.8 g/dl (3.4-5.0) L 02/16/17 07:00 - RADIOLOGY CT head and C spine reviewed MRI brain reviewed Plan: 61-year-old female presents to the ED with complaints of intermittent vomiting since yesterday. Patient states had 2 episodes yesterday and then one in the middle night. Patient states she got up out of bed but unsure why but felt dizzy stating she felt as if the room was spinning. She states then she awoke with her by her side lying on the floor next to her bed. Patient states at that time had no chest pain, shortness of breath, visual changes, palpitations, or was actively vomiting. Patient states then was assisted to standing position by her and was refusing medical care and took a shower. Further history obtained described incontinence and with limited recollection of event. CT head completed and no acute changes. CT C spine reviewed as well and stable. Patient remains awake, alert, responsive in bed but fatiged appearing. Possibly micturation syncope BP monitoring, range 110-130 acceptable MRI brain reviewed, prior CVA Started on PLavix due to ASA allergy Telemetry monitoring Awaiting Echo report Tigher glycemic control, presented with BGM 301 Prefer BGM 80-130 range CHeck HGA1C, Continue Januvia Fall precautions
[2017-02-18] MEDS: CEFTRIAXONE 2 GM in DEXTROSE 5%-WATER 100 ML IVPB SCH (09:59)
[2017-02-18] MEDS: CLOPIDOGREL BISULFATE 75 MG TABLET (FP) PO SCH (09:59)
[2017-02-18] MEDS: amLODIPine BESYLATE 10 MG TABLET (FP) PO SCH (09:59)
[2017-02-18] MEDS: ESCITALOPRAM OXALATE 10 MG TABLET (FP) PO SCH (09:59)
[2017-02-18] MEDS: ENALAPRIL MALEATE 10 MG TABLET (FP) PO SCH (10:00)
--- NOTE | 2017-02-18 10:31 | PN ---
Progress Note, Physician Chief Complaint: Urosepsis History of Present Illness: Patient seen and examined at bedside. She states that she subjectively feels clinically better, complaining only of mild suprapubic tenderness. Denies chest pain, SOB, nausea, vomiting, fever, chills, abdominal pain, diarrhea. - Current Medication List Current Medications: Active Medications Acetaminophen (Tylenol -) 650 mg PO Q6H PRN PRN Reason: FEVER OR PAIN Last Admin: 02/17/17 19:29 Dose: 650 mg Albuterol Sulfate (Ventolin 0.083% Nebulizer Soln -) 1 amp NEB Q6H PRN PRN Reason: SHORT OF BREATH/WHEEZING Last Admin: 02/17/17 22:33 Dose: 1 amp Amlodipine Besylate (Norvasc -) 10 mg PO DAILY [facility] Last Admin: 02/18/17 09:59 Dose: 10 mg Atorvastatin Calcium (Lipitor -) 40 mg PO [facility] Last Admin: 02/17/17 22:08 Dose: 40 mg Clopidogrel Bisulfate (Plavix -) 75 mg PO DAILY [facility] Last Admin: 02/18/17 09:59 Dose: 75 mg Enalapril Maleate (Vasotec -) 40 mg PO DAILY [facility] Last Admin: 02/18/17 10:00 Dose: 40 mg Escitalopram Oxalate (Lexapro -) 10 mg PO DAILY [facility] Last Admin: 02/18/17 09:59 Dose: 10 mg Heparin Sodium (Porcine) (Heparin -) 5,000 unit SQ TID [facility] Last Admin: 02/18/17 06:34 Dose: 5,000 unit Ceftriaxone Sodium 2 gm/ (Dextrose) 100 mls @ 200 mls/hr IVPB DAILY [facility] Last Admin: 02/18/17 09:59 Dose: 200 mls/hr Insulin Aspart (Novolog Vial Sliding Scale -) 1 vial SQ ACHS [facility] PRN Reason: Protocol Last Admin: 02/18/17 06:34 Dose: Not Given Insulin Detemir (Levemir Vial) 10 units SQ [facility] Last Admin: 02/17/17 22:07 Dose: 10 units Levothyroxine Sodium (Synthroid -) 112 mcg PO DAILY@0700 [facility] Last Admin: 02/18/17 06:34 Dose: 112 mcg Montelukast Sodium (Singulair -) 10 mg PO [facility] Last Admin: 02/17/17 22:08 Dose: 10 mg - Objective Vital Signs: Vital Signs Temperature 98.8 F 02/18/17 06:00 Pulse Rate 80 02/18/17 06:00 Respiratory Rate 18 02/18/17 06:00 Blood Pressure 139/79 02/18/17 06:00 O2 Sat by Pulse Oximetry (%) 96 02/18/17 06:00 Labs: CBC, BMP 02/16/17 07:00 02/16/17 07:00 Problem List - Problems (1) Gram-negative bacteremia Code(s): R78.81 - BACTEREMIA Assessment/Plan 61 year old female pmh HTN,HLD, hypothyroid, DMII, asthma, GERD s/p syncopal episode and UTI/bacteremia with E. coli -improved clinically from ID standpoint -f/u second set of blood cultures -continue rocephin while inpatient, can switch to oral levoquin when ready for discharge -day 3 of rocephin, total 10 days of antibiotics including the levoquin -monitor WBC/BP -sono negative for hydronephrosis
--- NOTE | 2017-02-18 13:05 | PN ---
Teaching Attending Note Name of Resident: King Adams ATTENDING PHYSICIAN STATEMENT I saw and evaluated the patient. I reviewed the resident's note and discussed the case with the resident. I agree with the resident's findings and plan as documented. SUBJECTIVE:asymptomatic. denies CP, SOB, fever, chills, syncope, dizzyness, urinary urgency, N/V/C/D OBJECTIVE: Last Vital Signs Temp Pulse Resp BP Pulse Ox 97.9 F 83 20 150/82 96 02/18/17 11:35 02/18/17 11:35 02/18/17 11:35 02/18/17 11:35 02/18/17 09:00 General NAD CV S1 S2 RRR no murmur/rub/gallop Lungs CTA B/L no wheezing/rales/rhonchi Abdomen soft NT/ND no suprapubic tenderness Extremities no pedal edema ASSESSMENT AND PLAN: 61 year old woman with a history of HTN, hyperlipidemia, hypothyroidism, type 2 DM, asthma, GERD who presented to the ER after passing out. 1. Sepsis secondary to UTI with bacteremia-afebrile 24H. repeat Bcx sent today. initial Bcx and Ucx with patel-sensitive Ecoli. will wait for repeat cx. on Ceftriaxone day 4. cont current management ID on board. 2. Syncope secondary to orthostatic hypotension from sepsis- no events on hospital monitor. no repeated episode. MRI brain done showing old CVA. plavix started due to asa allergy. explained to pt risk and benefits of plavix and its increased risk of bleeding. already on statin. echo pending. neuro on board. 3. Urinary incontinence secondary to UTI- resolved 4. HTN-above goal. increase ACEI. Continue Norvasc, Vasotec 5. Hyperlipidemia- Continue Lipitor 6. Hypothyroidism- Continue Synthroid 7. Type 2 DM-A1c 9.3. improved but above goal. takes insulin at home. takes levemir and humalog 10 units BID. will re-start humalog. cont to titrate levemir. iss. 8. hypomagnesemia- resolved 9. Asthma- Stable. no signs of acute exacerbation. 10. Depression- Continue Lexapro 11. DVT ppx- hep sq 12. d/w pt and son present at bedside for current plan. counseled on need for medication compliance and follow up. discussed changes to medications and need to adhere to medication. explained risks of uncontrolled diabetes and HTN can lead to early cardiac disease and repeated CVA. verbalized understadning and agreement.
--- NOTE | 2017-02-18 14:12 | PN ---
Teaching Attending Note Name of Resident: Augustus Bey ATTENDING PHYSICIAN STATEMENT I saw and evaluated the patient. I reviewed the resident's note and discussed the case with the resident. I agree with the resident's findings and plan as documented. SUBJECTIVE: doing well no complaints OBJECTIVE: Vital Signs Period Temp Pulse Resp BP Sys/Stallings Pulse Ox Last 24 Hr 97.9 F-99.1 F 63-91 18-20 128-158/71-89 96-97 CBC, BMP 02/16/17 07:00 02/16/17 07:00 Microbiology 02/15/17 15:15 Blood - Peripheral Venous Blood Culture - Final Escherichia Coli 02/15/17 15:15 Blood - Peripheral Venous Blood Culture - Final Escherichia Coli 02/15/17 15:15 Urine - Urine Clean Catch Urine Culture - Final Escherichia Coli ASSESSMENT AND PLAN: ecoli bacteremia/UTI day #3 rocephin plan total 10 days sono negative for hydronephrosis can switch to po quinolone when ready for discharge
--- NOTE | 2017-02-18 14:46 | PN ---
Physical Exam: SUBJECTIVE: Patient seen and examined at bed side. She is doing well. No acute events over night. She denies fever, chills, dysuria, frequency, yrgency, CP, SOB, N/V/D/C. OBJECTIVE: Vital Signs Period Temp Pulse Resp BP Sys/Stallings Pulse Ox Last 24 Hr 97.9 F-99.1 F 63-91 18-20 128-158/71-89 96-97 GENERAL: The patient is awake, alert, and fully oriented, in no acute distress. HEAD: Normal with no signs of trauma. EYES: PERRL, sclera anicteric, conjunctiva clear. No ptosis. ENT: moist mucous membranes. NECK: Trachea midline, full range of motion, supple. LUNGS: Breath sounds equal, clear to auscultation bilaterally, no wheezes, no crackles, no accessory muscle use. HEART: Regular rate and rhythm, S1, S2 without murmur, rub or gallop. ABDOMEN: Soft, nontender, nondistended, normoactive bowel sounds, no guarding, no rebound, no hepatosplenomegaly, no masses. EXTREMITIES: 2+ pulses, warm, well-perfused, no edema. NEUROLOGICAL: Normal speech, gait not observed. PSYCH: Normal mood, normal affect. SKIN: Warm, dry, normal turgor, no rashes or lesions noted Laboratory Results - last 24 hr 02/17/17 02/18/17 02/18/17 22:02 06:32 08:20 POC Glucometer 254 121 Magnesium 2.0 02/18/17 12:04 POC Glucometer 274 Magnesium Active Medications Generic Name Dose Route Start Last Admin Trade Name Freq PRN Reason Stop Dose Admin Acetaminophen 650 mg 02/16/17 20:03 02/17/17 19:29 Tylenol - PO 650 mg Q6H PRN Administration FEVER OR PAIN Albuterol Sulfate 1 amp 02/15/17 17:02 02/17/17 22:33 Ventolin 0.083% Nebulizer Soln - NEB 1 amp Q6H PRN Administration SHORT OF BREATH/WHEEZING Amlodipine Besylate 10 mg 02/15/17 17:00 02/18/17 09:59 Norvasc - PO 10 mg DAILY [facility] Administration Atorvastatin Calcium 40 mg 02/15/17 22:00 02/17/17 22:08 Lipitor - PO 40 mg HS [facility] Administration Clopidogrel Bisulfate 75 mg 02/17/17 19:00 02/18/17 09:59 Plavix - PO 75 mg DAILY [facility] Administration Enalapril Maleate 40 mg 02/18/17 10:00 02/18/17 10:00 Vasotec - PO 40 mg DAILY [facility] Administration Escitalopram Oxalate 10 mg 02/16/17 10:00 02/18/17 09:59 Lexapro - PO 10 mg DAILY [facility] Administration Heparin Sodium (Porcine) 5,000 unit 02/15/17 22:00 02/18/17 14:14 Heparin - SQ 5,000 unit TID [facility] Administration Ceftriaxone Sodium 2 gm/ 100 mls @ 200 mls/hr 02/16/17 10:00 02/18/17 09:59 Dextrose IVPB 200 mls/hr DAILY [facility] Administration Insulin Aspart 10 units 02/18/17 16:30 Novolog SQ BID@0700,1630 [facility] Insulin Aspart 1 vial 02/18/17 13:04 Novolog Vial Sliding Scale - SQ ACHS [facility] Protocol Insulin Detemir 10 units 02/16/17 22:00 02/17/17 22:07 Levemir Vial SQ 10 units HS [facility] Administration Levothyroxine Sodium 112 mcg 02/16/17 07:00 02/18/17 06:34 Synthroid - PO 112 mcg DAILY@0700 [facility] Administration Montelukast Sodium 10 mg 02/15/17 22:00 02/17/17 22:08 Singulair - PO 10 mg HS [facility] Administration ASSESSMENT/PLAN: 61 y/o [place] speaking F w/PMH of asthma, HLD, HTN, DM, hypothyroidism presents to the ER due to syncope and memory loss this AM. Found to have UTI on UA. # Sepsis Likely 2/2 to UTI with bacteremia -afebrile 24H. repeat Bcx sent today. - initial Bcx and Ucx with patel-sensitive Ecoli. will wait for repeat cx. -on Ceftriaxone day 4. cont current management ID on board. #-DM -ISS, BGMs -Hg A1C 9.3 - improved but above goal. -takes insulin at home. takes levemir and humalog 10 units BID. -will re-start humalog. cont to titrate levemir. iss. #AMS, acute amnesia, syncope likely secondary to UTI with orthostatic hypotension -UA shows 3+ LE, 342 WBC, pt with dysuria and frequency -UCx ordered -ceftriaxone 1 g IV qd -ECHO shows No hydronephrosis -monitor on tele -orthostatic vital signs Q AM -MRI brain ordered showes no acute infarct , puctate chronic left fronal subcortical infarct. 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 -Urinary incontinence likely secondary to UTI, resolved -ceftriaxone 1 g IV qd day 4 -f/u UCx -Leukocytosis secondary to UTI -ceftriaxone 1 g IV qd day 4 -Lactic acid 1.3 -f/u BCx, UCx -HTN, chronic - BP 139/79 -c/w norvasc 10 mg po qd, - increase ACEI to 40 mg PO qd -HLD, chronic -c/w atorvastatin 40 mg po qd -Hypothyroidism -c/w synthroid 112 mcg qd - Hypomagnesimia -resolved -DM, chronic -ISS, BGMs -Hg A1C 9.3 - improved but above goal. -takes insulin at home. takes levemir and humalog 10 units BID. -will re-start humalog. cont to titrate levemir. iss. -Hx of asthma, stable -alb nebs q6h prn for sob/wheezing -c/w montelukast 10 mg po qhs - no signs of acute exacerbation. -Depression -c/w escitalopram 10 mg po qd -DVT ppx -heparin 5000 units sq tid -FEN -on No fluids -Mg repleted, monitor lytes -Diabetic diet -Dispo: -Admit to tele Visit type - Emergency Visit Emergency Visit: Yes ED Registration Date: 02/15/17 Care time: The patient presented to the Emergency Department on the above date and was hospitalized for further evaluation of their emergent condition. - New Patient This patient is new to me today: No - Critical Care Critical Care patient: No
[2017-02-18] MEDS: Insulin (LOG) Aspart 100 UNITS/ML VIAL SQ SCH (17:25)
[2017-02-18 17:28] LABS: ALBUMIN 2.7 g/dl (3.4-5.0); ALK PHOS 117 U/L (45-117); ANION GAP 8 (8-16); BILIRUBIN,TOTAL 0.2 mg/dL (0.2-1.0); CALCIUM 8.8 mg/dL (8.5-10.1); CO2 30 mmol/L (21-32); CREATININE 0.6 mg/dL (0.55-1.02); SGOT/AST 23 U/L (15-37); SGPT/ALT 34 U/L (12-78); TOT PROT 6.8 g/dl (6.4-8.2)
[2017-02-18 17:32] LABS: GLUCOSE,RANDOM 307 mg/dL (74-106)
[2017-02-18] MEDS: MONTELUKAST NA 10 MG TABLET PO SCH (22:10)
[2017-02-18] MEDS: ATORVASTATIN CA 40 MG TABLET (FP) PO SCH (22:10)
[2017-02-18] MEDS: INSULIN DETEMIR 100 UNITS/ML MDV SQ SCH (22:10)
[2017-02-19] MEDS: INSULIN SLIDING SCALE (NOVOLOG) 1 VIAL SQ SCH ×2 (06:24→12:05)
[2017-02-19] MEDS ORDERED: PT OWN MED DRAWER 7, Y5N ONE (06:27)
[2017-02-19] MEDS: Insulin (LOG) Aspart 100 UNITS/ML VIAL SQ SCH ×2 (06:36→16:09)
[2017-02-19] MEDS: HEPARIN NA (PORCINE) 5,000 UNITS/ML 1ML VIAL SQ SCH ×2 (06:36→14:42)
[2017-02-19] MEDS: LEVOTHYROXINE NA 112 MCG TABLET (FP) PO SCH (06:37)
[2017-02-19 08:56] LABS: ALBUMIN 2.7 g/dl (3.4-5.0); ALK PHOS 109 U/L (45-117); ANION GAP 11 (8-16); BILIRUBIN,TOTAL 0.2 mg/dL (0.2-1.0); CALCIUM 9.1 mg/dL (8.5-10.1); CO2 29 mmol/L (21-32); CREATININE 0.5 mg/dL (0.55-1.02); GLUCOSE,RANDOM 133 mg/dL (74-106); SGOT/AST 28 U/L (15-37); SGPT/ALT 37 U/L (12-78); TOT PROT 6.6 g/dl (6.4-8.2)
[2017-02-19] MEDS ORDERED: INSULIN DETEMIR 100 UNITS/ML MDV SQ ONE (09:03)
--- NOTE | 2017-02-19 09:34 | PN ---
Progress Note, Physician Chief Complaint: Urosepsis History of Present Illness: Patient seen and examined at bedside. She states that she has improved clinically. Denies chest pain, SOB, nausea, vomiting, fever, chills, abdominal pain, diarrhea. - Current Medication List Current Medications: Active Medications Acetaminophen (Tylenol -) 650 mg PO Q6H PRN PRN Reason: FEVER OR PAIN Last Admin: 02/17/17 19:29 Dose: 650 mg Albuterol Sulfate (Ventolin 0.083% Nebulizer Soln -) 1 amp NEB Q6H PRN PRN Reason: SHORT OF BREATH/WHEEZING Last Admin: 02/17/17 22:33 Dose: 1 amp Amlodipine Besylate (Norvasc -) 10 mg PO DAILY [facility] Last Admin: 02/18/17 09:59 Dose: 10 mg Atorvastatin Calcium (Lipitor -) 40 mg PO HS [facility] Last Admin: 02/18/17 22:10 Dose: 40 mg Clopidogrel Bisulfate (Plavix -) 75 mg PO DAILY [facility] Last Admin: 02/18/17 09:59 Dose: 75 mg Enalapril Maleate (Vasotec -) 40 mg PO DAILY [facility] Last Admin: 02/18/17 10:00 Dose: 40 mg Escitalopram Oxalate (Lexapro -) 10 mg PO DAILY [facility] Last Admin: 02/18/17 09:59 Dose: 10 mg Heparin Sodium (Porcine) (Heparin -) 5,000 unit SQ TID [facility] Last Admin: 02/19/17 06:36 Dose: 5,000 unit Ceftriaxone Sodium 2 gm/ (Dextrose) 100 mls @ 200 mls/hr IVPB DAILY [facility] Last Admin: 02/18/17 09:59 Dose: 200 mls/hr Insulin Aspart (Novolog) 10 units SQ BID@0700,1630 [facility] Last Admin: 02/19/17 06:36 Dose: 10 units Insulin Aspart (Novolog Vial Sliding Scale -) 1 vial SQ ACHS [facility] PRN Reason: Protocol Last Admin: 02/19/17 06:24 Dose: Not Given Insulin Detemir (Levemir Vial) 10 units SQ HS [facility] Last Admin: 02/18/17 22:10 Dose: 10 units Levothyroxine Sodium (Synthroid -) 112 mcg PO DAILY@0700 [facility] Last Admin: 02/19/17 06:37 Dose: 112 mcg Montelukast Sodium (Singulair -) 10 mg PO HS [facility] Last Admin: 02/18/17 22:10 Dose: 10 mg - Objective Vital Signs: Vital Signs Temperature 98.4 F 02/19/17 05:54 Pulse Rate 79 02/19/17 05:54 Respiratory Rate 20 02/19/17 05:54 Blood Pressure 159/95 02/19/17 05:54 O2 Sat by Pulse Oximetry (%) 97 02/18/17 21:00 Constitutional: Yes: Well Nourished, No Distress, Calm Eyes: Yes: Conjunctiva Clear, EOM Intact HENT: Yes: Atraumatic, Normocephalic Neck: Yes: Supple, Trachea Midline Cardiovascular: Yes: Regular Rate and Rhythm, S1, S2. No: Gallop, Murmur, Rub Respiratory: Yes: Regular, CTA Bilaterally. No: Rales, Rhonchi, SOB, Wheezes Gastrointestinal: Yes: Normal Bowel Sounds, Soft. No: Tenderness Musculoskeletal: Yes: WNL Extremities: Yes: WNL Edema: No Peripheral Pulses WNL: Yes Integumentary: Yes: WNL Wound/Incision: Yes: Clean/Dry, Well Approximated Neurological: Yes: Alert, Oriented, Cran Nerves II-XII Intact ...Motor Strength: WNL Psychiatric: Yes: Alert, Oriented Labs: CBC, BMP 02/16/17 07:00 02/19/17 07:00 Problem List - Problems (1) Gram-negative bacteremia Code(s): R78.81 - BACTEREMIA Assessment/Plan 61 year old female pmh HTN,HLD, hypothyroid, DMII, asthma, GERD s/p syncopal episode and UTI/bacteremia with E. coli -improved clinically from ID standpoint -2nd set of blood cx NEG -continue rocephin while inpatient, can switch to oral levoquin when ready for discharge -day 4 of rocephin, total 10 days of antibiotics including the levoquin -WBC improving -sono negative for hydronephrosis
--- NOTE | 2017-02-19 09:50 | PN ---
Progress Note (short form) - Note Progress Note: Neurology History of Present Illness 61-year-old female presents to the ED with complaints of intermittent vomiting since yesterday. Patient states had 2 episodes yesterday and then one in the middle night. Patient states she got up out of bed but unsure why but felt dizzy stating she felt as if the room was spinning. She states then she awoke with her by her side lying on the floor next to her bed. Patient states at that time had no chest pain, shortness of breath, visual changes, palpitations, or was actively vomiting. Patient states then was assisted to standing position by her and was refusing medical care and took a shower. Further history obtained described incontinence and with limited recollection of event. CT head completed and no acute changes. CT C spine reviewed as well and stable. MRI brain completed and discussed with patient in detail at bedside. There were no new infarcts but old L frontal noted, possible R thalamic and R cerebellar foci. She is not on antiplatelet medication and states she is allergic to ASA (reports rash) and her locations are suspicious for hypertensive infarct, but I do believe she would benefit from antiplatelet medication, patient started on Plavix 75. Echo completed and awaiting report. No new events overnight. Neurologically stable at this time. Active Medications Acetaminophen (Tylenol -) 650 mg PO Q6H PRN PRN Reason: FEVER OR PAIN Last Admin: 02/17/17 19:29 Dose: 650 mg Albuterol Sulfate (Ventolin 0.083% Nebulizer Soln -) 1 amp NEB Q6H PRN PRN Reason: SHORT OF BREATH/WHEEZING Last Admin: 02/17/17 22:33 Dose: 1 amp Amlodipine Besylate (Norvasc -) 10 mg PO DAILY [facility] Last Admin: 02/18/17 09:59 Dose: 10 mg Atorvastatin Calcium (Lipitor -) 40 mg PO HS [facility] Last Admin: 02/18/17 22:10 Dose: 40 mg Clopidogrel Bisulfate (Plavix -) 75 mg PO DAILY [facility] Last Admin: 02/18/17 09:59 Dose: 75 mg Enalapril Maleate (Vasotec -) 40 mg PO DAILY [facility] Last Admin: 02/18/17 10:00 Dose: 40 mg Escitalopram Oxalate (Lexapro -) 10 mg PO DAILY [facility] Last Admin: 02/18/17 09:59 Dose: 10 mg Heparin Sodium (Porcine) (Heparin -) 5,000 unit SQ TID [facility] Last Admin: 02/19/17 06:36 Dose: 5,000 unit Ceftriaxone Sodium 2 gm/ (Dextrose) 100 mls @ 200 mls/hr IVPB DAILY [facility] Last Admin: 02/18/17 09:59 Dose: 200 mls/hr Insulin Aspart (Novolog) 10 units SQ BID@0700,1630 [facility] Last Admin: 02/19/17 06:36 Dose: 10 units Insulin Aspart (Novolog Vial Sliding Scale -) 1 vial SQ ACHS [facility] PRN Reason: Protocol Last Admin: 02/19/17 06:24 Dose: Not Given Insulin Detemir (Levemir Vial) 10 units SQ HS [facility] Last Admin: 02/18/17 22:10 Dose: 10 units Levothyroxine Sodium (Synthroid -) 112 mcg PO DAILY@0700 [facility] Last Admin: 02/19/17 06:37 Dose: 112 mcg Montelukast Sodium (Singulair -) 10 mg PO [facility] Last Admin: 02/18/17 22:10 Dose: 10 mg *Physical Exam Vital Signs Temperature 98.4 F 02/19/17 05:54 Pulse Rate 79 02/19/17 05:54 Respiratory Rate 20 02/19/17 05:54 Blood Pressure 159/95 02/19/17 05:54 O2 Sat by Pulse Oximetry (%) 97 02/18/17 21:00 - Physical Exam General Appearance: Yes: Nourished, Appropriately Dressed. No: Apparent Distress HEENT: positive: EOMI, BENJY, TMs Normal, Pharynx Normal. negative: Pale Conjunctivae Neck: positive: Supple Respiratory/Chest: positive: Lungs Clear, Normal Breath Sounds. negative: Respiratory Distress, Accessory Muscle Use Cardiovascular: positive: Regular Rhythm, Regular Rate. negative: Murmur Gastrointestinal/Abdominal: positive: Soft. negative: Tenderness Musculoskeletal: negative: CVA Tenderness, Vertebral Tenderness Extremity: negative: Normal Capillary Refill, Pedal Edema Integumentary: positive: Normal Color, Warm, Moist Neurologic: positive: Fully Oriented, Normal Mood/Affect, Motor Strength 5/5 CBCD WBC 9.9 K/mm3 (4.0-10.0) D 02/16/17 07:00 RBC 4.48 M/mm3 (3.60-5.2) 02/16/17 07:00 Hgb 13.1 GM/dL (10.7-15.3) 02/16/17 07:00 Hct 39.6 % (32.4-45.2) 02/16/17 07:00 MCV 88.4 fl (80-96) 02/16/17 07:00 MCHC 33.1 g/dl (32.0-36.0) 02/16/17 07:00 RDW 13.2 % (11.6-15.6) 02/16/17 07:00 Plt Count 151 K/MM3 (134-434) 02/16/17 07:00 MPV 10.1 fl (7.5-11.1) 02/16/17 07:00 CMP Sodium 143 mmol/L (136-145) 02/19/17 07:00 Potassium 3.1 mmol/L (3.5-5.1) L 02/19/17 07:00 Chloride 103 mmol/L (98-107) 02/19/17 07:00 Carbon Dioxide 29 mmol/L (21-32) 02/19/17 07:00 Anion Gap 11 (8-16) 02/19/17 07:00 BUN 9 mg/dL (7-18) 02/19/17 07:00 Creatinine 0.5 mg/dL (0.55-1.02) L 02/19/17 07:00 Creat Clearance w eGFR > 60 (>60) 02/19/17 07:00 Calcium 9.1 mg/dL (8.5-10.1) 02/19/17 07:00 Total Bilirubin 0.2 mg/dL (0.2-1.0) 02/19/17 07:00 AST 28 U/L (15-37) D 02/19/17 07:00 ALT 37 U/L (12-78) 02/19/17 07:00 Alkaline Phosphatase 109 U/L (45-117) 02/19/17 07:00 Total Protein 6.6 g/dl (6.4-8.2) 02/19/17 07:00 Albumin 2.7 g/dl (3.4-5.0) L 02/19/17 07:00 - RADIOLOGY CT head and C spine reviewed MRI brain reviewed Plan: 61-year-old female presents to the ED with complaints of intermittent vomiting since yesterday. Patient states had 2 episodes yesterday and then one in the middle night. Patient states she got up out of bed but unsure why but felt dizzy stating she felt as if the room was spinning. She states then she awoke with her by her side lying on the floor next to her bed. Patient states at that time had no chest pain, shortness of breath, visual changes, palpitations, or was actively vomiting. Patient states then was assisted to standing position by her and was refusing medical care and took a shower. Further history obtained described incontinence and with limited recollection of event. CT head completed and no acute changes. CT C spine reviewed as well and stable. Patient remains awake, alert, responsive in bed but fatigued appearing. Possibly micturation syncope BP monitoring, range 110-130 acceptable MRI brain reviewed, prior CVA Started on PLavix due to ASA allergy Telemetry monitoring Awaiting Echo report Tigher glycemic control, presented with BGM 301 Prefer BGM 80-130 range CHeck HGA1C, Continue Januvia Fall precautions Neurologically at baseline
[2017-02-19] MEDS ORDERED: DEXTROSE 5%-WATER 100 ML IVPB ONE (10:12)
[2017-02-19] MEDS: ENALAPRIL MALEATE 10 MG TABLET (FP) PO SCH (10:19)
[2017-02-19] MEDS: ESCITALOPRAM OXALATE 10 MG TABLET (FP) PO SCH (10:19)
[2017-02-19] MEDS: CLOPIDOGREL BISULFATE 75 MG TABLET (FP) PO SCH (10:19)
[2017-02-19] MEDS: CEFTRIAXONE 2 GM in DEXTROSE 5%-WATER 100 ML IVPB SCH (10:19)
[2017-02-19] MEDS: amLODIPine BESYLATE 10 MG TABLET (FP) PO SCH (10:20)
--- NOTE | 2017-02-19 11:32 | PN ---
Teaching Attending Note Name of Resident: Augustus Bey ATTENDING PHYSICIAN STATEMENT I saw and evaluated the patient. I reviewed the resident's note and discussed the case with the resident. I agree with the resident's findings and plan as documented. SUBJECTIVE: No complaints No c/o dysuria/ hematuria OBJECTIVE: Afebrile Abdomen soft, non tender ASSESSMENT AND PLAN: E coli bacteremia/ sepsis secondary to Continue ceftriaxone
[2017-02-19] MEDS ORDERED: METOPROLOL SUCCINATE 25 MG TAB.SR.24H (FP) PO SCH (13:15)
--- NOTE | 2017-02-19 13:22 | DS ---
Physical Exam: SUBJECTIVE: Patient seen and examined at bed side. She si stable and clear to go home. She denies any fever , chills, N/V/D/C. She denies any urinary symptoms. OBJECTIVE: Vital Signs Period Temp Pulse Resp BP Sys/Stallings Pulse Ox Last 24 Hr 98.1 F-99.0 F 57-79 18-20 114-159/69-95 97-98 PHYSICAL EXAM GENERAL: The patient is awake, alert, and fully oriented, in no acute distress. HEAD: Normal with no signs of trauma. EYES: PERRL, sclera anicteric, conjunctiva clear. ENT: moist mucous membranes. NECK: Trachea midline, full range of motion, supple. LUNGS: Breath sounds equal, clear to auscultation bilaterally, no wheezes, no crackles, no accessory muscle use. HEART: Regular rate and rhythm, S1, S2 without murmur, rub or gallop. ABDOMEN: Soft, nontender, nondistended, normoactive bowel sounds, no guarding, no rebound, no hepatosplenomegaly, no masses. EXTREMITIES: 2+ pulses, warm, well-perfused, no edema. NEUROLOGICAL: Normal speech, gait not observed. PSYCH: Normal mood, normal affect. SKIN: Warm, dry, normal turgor, no rashes or lesions noted. LABS Laboratory Results - last 24 hr 02/17/17 02/17/17 02/18/17 17:02 17:04 15:30 Sodium 139 Potassium 3.8 Chloride 101 Carbon Dioxide 30 D Anion Gap 8 BUN 9 D Creatinine 0.6 Creat Clearance w eGFR > 60 POC Glucometer 146 197 Random Glucose 307 H* D Calcium 8.8 Total Bilirubin 0.2 D AST 23 D ALT 34 D Alkaline Phosphatase 117 D Total Protein 6.8 Albumin 2.7 L 02/18/17 02/18/17 02/19/17 15:40 22:07 05:52 Sodium Potassium Chloride Carbon Dioxide Anion Gap BUN Creatinine Creat Clearance w eGFR POC Glucometer 297 183 152 Random Glucose Calcium Total Bilirubin AST ALT Alkaline Phosphatase Total Protein Albumin 02/19/17 02/19/17 02/19/17 07:00 07:00 10:17 Sodium 143 Potassium 3.1 L Chloride 103 Carbon Dioxide 29 Anion Gap 11 BUN 9 Creatinine 0.5 L Creat Clearance w eGFR > 60 POC Glucometer 169 Random Glucose 133 H D Cancelled Calcium 9.1 Total Bilirubin 0.2 AST 28 D ALT 37 Alkaline Phosphatase 109 Total Protein 6.6 Albumin 2.7 L 02/19/17 12:04 Sodium Potassium Chloride Carbon Dioxide Anion Gap BUN Creatinine Creat Clearance w eGFR POC Glucometer 192 Random Glucose Calcium Total Bilirubin AST ALT Alkaline Phosphatase Total Protein Albumin HOSPITAL COURSE: Date of Admission:02/15/17 Date of Discharge: 02/19/17 61 year old woman with a history of HTN, hyperlipidemia, hypothyroidism, type 2 DM, asthma, GERD who presented to the ER after passing out, with urinary incontinence. She was found to have sepsis secondary to UTI and bacterimia . She was treated with antibiotics Levaquin and will continue for total of 10 days antibiotics. She was afebrile for more than 24 hours and her culture come back negative after the treatment. and the urinary incontinence resolved. MRI brain was done and an old CVA was seen that needs no intervention at this time by the neurologist. Her blood pressure was elevated during the visit and her medicine were adjusted with Norvasc 10 mg po daily, vasotec to 40 mg po daily. and we started Toprol XL 12.5 mg daily. for her hyperlipidimia we continue the lipitor and we continue the Synthroid for her hypothyroidism. Patient has Type 2 DM-A1c 9.3. improved but above goal. sugars are low in the AM and uncontrolled during the day. will split long acting insulin. 5 units BID. cont humalog 10 units BID. explained need to monitor sugars closely. to document readings and bring to PMD office. needs to see PMD on Thursday to ensure sugars are stable. Her asthma are stable. Patient need to follow up with her PCP within one week. f patient develp any fever, chills or her symptoms worsen she can come back to Emergency room. Minutes to complete discharge: 30 Discharge Summary Reason For Visit: [facility] Current Active Problems Acute memory impairment (Acute) Diabetes 1.5, managed as type 1 (Acute) Gram-negative bacteremia (Acute) Sepsis (Acute) Syncope (Acute) Condition: Stable - Instructions Diet, Activity, Other Instructions: Please take your medicine as prescribed. you started in Toprol Xl 12.5 daily, increase enalapril to 40 mg daily ,Norvasc remains 10 mg daily. Blood sugar meds : 10 units Aspart twice a day, Levemir 10 units twice a day, and insulin sliding scale. Please follow strict diabetic and low sodium diet. Please monitor your blood pressure daily and document the numbers. Bring this with you to your doctors appointment Please check your blood sugar 3 times a day and document the numbers . Please follow up with your primary care physician within one week to adjust your blood glucose and blood pressure continue taking your home meds Escitalopram 10 mg daily, Albuterol nebulizer, Montelukast 10 mg orally daily,Synthroid 112 mcg daily, atorvastain 40 mg daily. Complete antibiotic until completed even if your symptoms have resolved. You have 6 more days of antibiotics (levaquin) If you develop a fever , chills please call your primary care physician or come back to the emergency department. Referrals: Traci Brand MD [Primary Care Provider] - Disposition: HOME - Home Medications Comprehensive Discharge Medication List: Ambulatory Orders Albuterol Sulfate Inhaler - [Ventolin HFA Inhaler -] 2 inh IH Q4H #1 inh Atorvastatin Calcium [Lipitor] 40 mg PO DAILY 04/09/12 Montelukast Na [Singulair -] 10 mg PO HS 04/09/12 Amlodipine Besylate [Norvasc -] 10 mg PO DAILY 11/13/14 Enalapril Maleate [Vasotec -] 20 mg PO DAILY 11/13/14 Glyburide/Metformin HCl [Glyburide-Metformin 5-500 mg] 1 each PO DAILY 11/13/14 Levothyroxine [Synthroid -] 112 mcg PO DAILY 11/13/14 Sitagliptin Phosphate [Januvia -] 50 mg PO DAILY 11/13/14 Calcium Carbonate/Vitamin D3 [Calcium 500 + Vit D 200 Caplet] 1 each PO DAILY Cetirizine HCl 10 mg PO [facility] PRN 02/15/17 Escitalopram Oxalate [Lexapro -] 0 mg PO DAILY 02/15/17 Insulin Glargine,Hum.rec.anlog [Lantus (nf)] 0 units SQ HS 02/15/17 Liraglutide [Victoza -] 0 mg SQ ASDIR 02/15/17 Loratadine [Claritin -] 10 mg PO DAILY 02/15/17 Meclizine HCl 12.5 mg PO ASDIR PRN 02/15/17 This patient is new to me today: Yes Date on this admission: 02/20/17 Emergency Visit: Yes ED Registration Date: 02/15/17 Care time: The patient presented to the Emergency Department on the above date and was hospitalized for further evaluation of their emergent condition. Critical Care patient: No - Discharge Referral Referred to [facility] No
--- NOTE | 2017-02-19 14:06 | PN ---
Teaching Attending Note Name of Resident: King Adams ATTENDING PHYSICIAN STATEMENT I saw and evaluated the patient. I reviewed the resident's note and discussed the case with the resident. I agree with the resident's findings and plan as documented. SUBJECTIVE:asymptomatic. germania CP, SOB, fever, chills, N/V/C/D OBJECTIVE: Last Vital Signs Temp Pulse Resp BP Pulse Ox 98.1 F 70 18 154/69 98 02/19/17 10:00 02/19/17 10:34 02/19/17 10:00 02/19/17 10:00 02/19/17 10:34 General NAD ASSESSMENT AND PLAN: 61 year old woman with a history of HTN, hyperlipidemia, hypothyroidism, type 2 DM, asthma, GERD who presented to the ER after passing out. 1. Sepsis secondary to UTI with bacteremia-afebrile >24H. repeat Bcx negative. will d/c on levaquin to complete 10 day course 2. 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 no repeated episode. MRI brain done showing old CVA. plavix started due to asa allergy. neuro on board. 3. Urinary incontinence secondary to UTI- resolved 4. HTN-above goal.start toprol XL. Continue Norvasc, Vasotec 5. Hyperlipidemia- Continue Lipitor 6. Hypothyroidism- Continue Synthroid 7. Type 2 DM-A1c 9.3. improved but above goal. sugars are low in the AM and uncontrolled during the day. will split long acting insulin. 5 units BID. cont humalog 10 units BID. explained need to monitor sugars closely. to document readings and bring to PMD office. needs to see PMD on thursday to ensure sugars are stable. 8. hypokalemia- Kcl 40meq 9. Asthma- Stable. no signs of acute exacerbation. 10. Depression- Continue Lexapro 11. DVT ppx- hep sq 12. monitor till this afteroon to ensure pt doesnt develop hypoglycemia on new insulin regimen. anticipate d/c today.
[2017-02-19] MEDS ORDERED: POTASSIUM CHLORIDE ORAL LIQUID 20 MEQ/15 ML PO ONE (14:30)
[2017-02-19 14:40] VITALS: BP 147/86; PULSE 71; TEMP 98.2
[2017-02-19] MEDS ORDERED: INSULIN (NOVOLOG) ASPART 100 UNITS/ML 10ML VIAL ONE (16:08)
[2017-02-19 16:53] LABS: URINE APPEARANCE CLEAR; URINE BILIRUBIN NEGATIVE (NEGATIVE); URINE BLOOD 1+ (NEGATIVE); URINE COLOR LTYELLOW; URINE GLUCOSE (UA) 2+ (NEGATIVE); URINE KETONE NEGATIVE (NEGATIVE); URINE NITRITE NEGATIVE (NEGATIVE); URINE PROTEIN NEGATIVE (NEGATIVE); URINE UROBILINOGEN NEGATIVE mg/dL (0.2-1.0)
[2017-02-19 17:04] LABS: URINE LEUK ESTERASE 1+ (NEGATIVE)
[2017-02-19 17:16] LABS: URINE MUCUS RARE; URINE RBC 1 /hpf (0-3); URINE WBC 13 /hpf (3-5)
== END 2017-02-19 16:28 | disposition home or self-care (01) | DRG 720 ==
LOC: JER 08:39 → JERBED 13:15 → J4W 19:48
PROVIDERS: ADMIT Internal Medicine; ATTEND Internal Medicine
DX: A41.51 Sepsis due to Escherichia coli [E. coli] (principal); I95.1 Orthostatic hypotension; N39.0 Urinary tract infection, site not specified; J45.909 Unspecified asthma, uncomplicated; I10 Essential (primary) hypertension; K21.9 Gastro-esophageal reflux disease without esophagitis; E78.00 Pure hypercholesterolemia, unspecified; Z79.84 Long term (current) use of oral hypoglycemic drugs; E03.9 Hypothyroidism, unspecified; R32 Unspecified urinary incontinence; R41.3 Other amnesia; F32.9 Major depressive disorder, single episode, unspecified; E11.65 Type 2 diabetes mellitus with hyperglycemia; E83.42 Hypomagnesemia; R11.10 Vomiting, unspecified
CPT/HCPCS: 36415; 70450-TC; 70551-TC; 71010-TC; 72125-TC; 76775-TC; 80053; 81003; 81015; 83036; 83605; 83735; 84484; 85025; 87040; 87086; 87186; 93005; 93010; 93306-TC; 94640; 97116-GP; 97161-GP; 99283-25; J1644

== ENCOUNTER 2021-02-21 18:33 | Inpatient (IN) | payer OTHER ==
[2021-02-21 18:42] VITALS: BMI 24.5
[2021-02-21] MEDS ORDERED: SODIUM CHLORIDE 0.9% 500 ML INFUS.BAG IV ONE (19:34)
[2021-02-21] MEDS ORDERED: ACETAMINOPHEN 1000 MG/100 ML VIAL (NON FORMULARY) IVPB ONE (19:34)
[2021-02-21] MEDS ORDERED: ACETAMINOPHEN INJECTION 100 ML IVPB ONE (19:44)
[2021-02-21 20:51] LABS: VENOUS O2 SATURATION 72.1 % (70-80); VENOUS PCO2 29.3 mmHg (38-52); VENOUS PH 7.415 (7.310-7.410)
[2021-02-21 20:58] LABS: INR 0.97 (0.83-1.09); PROTHROMBIN TIME (PATIENT) 11.8 SEC (9.7-13.0)
[2021-02-21 21:01] LABS: ACTIVATED PTT 20.2 SECONDS (25.2-36.5)
[2021-02-21 21:05] LABS: BASO % 0.6 % (0-2.0); CHLORIDE 106 mmol/L (98-107); EOS % 0.4 % (0-4.5); HEMATOCRIT 34.7 % (32.4-45.2); HEMOGLOBIN 11.6 GM/dL (10.7-15.3); LYMPH % 17.1 % (8-40); MCH 30.2 pg (25.7-33.7); MCHC 33.4 g/dl (32.0-36.0); MEAN CELL VOLUME 90.4 fl (80-96); MEAN PLT VOLUME 8.9 fl (7.5-11.1); MONO % 2.3 % (3.8-10.2); NEUT % 79.6 % (42.8-82.8); PLATELET COUNT 356 10^3/uL (134-434); RBC 3.84 M/mm3 (3.60-5.2); RDW 15.1 % (11.6-15.6); SODIUM 137 mmol/L (136-145); WHITE BLOOD COUNT 2.1 K/mm3 (4.0-10.0)
[2021-02-21 21:09] LABS: ALBUMIN 3.3 g/dl (3.4-5.0); BLOOD UREA NITROGEN 29.3 mg/dL (7-18); CALCIUM 8.9 mg/dL (8.5-10.1); CO2 24 mmol/L (21-32); GLUCOSE,RANDOM 256 mg/dL (74-106)
[2021-02-21 21:12] LABS: CREATININE 1.2 mg/dL (0.55-1.3); SGOT/AST 96 U/L (15-37); SGPT/ALT 26 U/L (13-61)
[2021-02-21 21:14] LABS: BILIRUBIN,TOTAL 1.3 mg/dL (0.2-1); TOT PROT 8.3 g/dl (6.4-8.2)
[2021-02-21 21:15] LABS: ALK PHOS 158 U/L (45-117); LACTIC ACID 4.7 mmol/L (0.4-2.0)
[2021-02-21 21:23] LABS: ANION GAP 7 MMOL/L (8-16)
[2021-02-21 22:02] LABS: EPI CELLS 23 /uL (0-25.1); HYALINE CASTS 1 /uL (0-3.1); PH,URINE 5.5 (5.0-8.0); URINE APPEARANCE CLEAR; URINE BACTERIA 61 /uL (0-1359); URINE BILIRUBIN NEGATIVE (NEGATIVE); URINE COLOR YELLOW; URINE GLUCOSE (UA) 2+ (NEGATIVE); URINE KETONE NEGATIVE (NEGATIVE); URINE LEUK ESTERASE 2+ (NEGATIVE); URINE NITRITE NEGATIVE (NEGATIVE); URINE PROTEIN NEGATIVE (NEGATIVE); URINE RBC 9 /uL (0-23.9); URINE UROBILINOGEN 0.2 mg/dL (0.2-1.0); URINE WBC 158 /uL (0-25.8)
[2021-02-21 22:11] LABS: CREATININE 1.1 mg/dL (0.55-1.3)
[2021-02-21 22:15] LABS: CALCIUM 8.1 mg/dL (8.5-10.1)
[2021-02-22] MEDS ORDERED: ENOXAPARIN NA (PORCINE) 40 MG/0.4 ML DISP.SYRIN SQ ONE (00:03)
[2021-02-22] MEDS ORDERED: ENOXAPARIN NA (PORCINE) 60 MG/0.6 ML DISP.SYRIN SQ ONE ×2 (00:30→11:21)
[2021-02-22] MEDS ORDERED: ALBUTEROL SO4 HFA INHALER IH ONE (08:49)
[2021-02-22] MEDS: ALBUTEROL SO4 HFA INHALER IH SCH ×2 (09:10→16:33)
[2021-02-22] MEDS ORDERED: amLODIPine BESYLATE 5 MG TABLET (FP) ONE (11:20)
[2021-02-22] MEDS ORDERED: metoPROLOL SUCCINATE 25 MG TAB.SR.24H (FP) ONE (11:21)
[2021-02-22] MEDS ORDERED: CLOPIDOGREL BISULFATE 75 MG TABLET (FP) ONE (11:21)
[2021-02-22] MEDS ORDERED: ESCITALOPRAM OXALATE 10 MG TABLET ONE (11:22)
[2021-02-22] MEDS: ENOXAPARIN NA (PORCINE) 60 MG/0.6 ML DISP.SYRIN SQ SCH ×2 (11:33→23:11)
[2021-02-22] MEDS: ESCITALOPRAM OXALATE 10 MG TABLET PO SCH (11:33)
[2021-02-22] MEDS: metoPROLOL SUCCINATE 25 MG TAB.SR.24H (FP) PO SCH (11:34)
[2021-02-22] MEDS: ENALAPRIL MALEATE 10 MG TABLET PO SCH ×2 (11:34→23:12)
[2021-02-22] MEDS: amLODIPine BESYLATE 10 MG TABLET (FP) PO SCH (11:34)
[2021-02-22] MEDS: CLOPIDOGREL BISULFATE 75 MG TABLET (FP) PO SCH (11:34)
[2021-02-22] MEDS ORDERED: LEVOTHYROXINE NA 25 MCG TABLET (FP) ONE (11:57)
[2021-02-22] MEDS ORDERED: LORATADINE 10 MG TABLET ONE (11:57)
[2021-02-22] MEDS: LORATADINE 10 MG TABLET PO SCH (12:07)
[2021-02-22] MEDS: LEVOTHYROXINE NA 112 MCG TABLET (FP) PO SCH (12:07)
[2021-02-22] MEDS ORDERED: Insulin (LOG) Aspart 100 UNITS/ML VIAL SQ SCH (16:30)
[2021-02-22] MEDS: INSULIN SLIDING SCALE (NOVOLOG) 1 VIAL SQ SCH ×2 (16:42→23:10)
[2021-02-22] MEDS: INSULIN (LEVEMIR) 100 UNITS/ML UNITS SQ SCH ×2 (17:47→23:08)
[2021-02-22] MEDS ORDERED: ALBUTEROL SO4 2.5/IPRATROPIUM 0.5 INH SOL 3 ML VIAL.NEB. NEB PRN (21:49)
[2021-02-22] MEDS: MONTELUKAST NA 10 MG TABLET PO SCH (23:11)
[2021-02-22] MEDS: ATORVASTATIN CA 10 MG TABLET (FP) PO SCH (23:12)
[2021-02-23] MEDS: LEVOTHYROXINE NA 112 MCG TABLET (FP) PO SCH (06:07)
[2021-02-23] MEDS: INSULIN (LEVEMIR) 100 UNITS/ML UNITS SQ SCH ×2 (06:07→23:14)
[2021-02-23] MEDS: INSULIN SLIDING SCALE (NOVOLOG) 1 VIAL SQ SCH ×5 (06:11→23:29)
[2021-02-23 08:58] LABS: BASO % 0.8 % (0-2.0); EOS % 3.6 % (0-4.5); HEMATOCRIT 26.6 % (32.4-45.2); HEMOGLOBIN 9.1 GM/dL (10.7-15.3); LYMPH % 14.3 % (8-40); MCH 30.5 pg (25.7-33.7); MCHC 34.2 g/dl (32.0-36.0); MEAN CELL VOLUME 89.3 fl (80-96); MEAN PLT VOLUME 9.1 fl (7.5-11.1); MONO % 2.9 % (3.8-10.2); NEUT % 78.4 % (42.8-82.8); PLATELET COUNT 204 10^3/uL (134-434); RBC 2.98 M/mm3 (3.60-5.2)
[2021-02-23] MEDS: ENALAPRIL MALEATE 10 MG TABLET PO SCH ×2 (09:20→23:13)
[2021-02-23] MEDS: amLODIPine BESYLATE 10 MG TABLET (FP) PO SCH (09:20)
[2021-02-23] MEDS: metoPROLOL SUCCINATE 25 MG TAB.SR.24H (FP) PO SCH (09:20)
[2021-02-23] MEDS: ESCITALOPRAM OXALATE 10 MG TABLET PO SCH (09:20)
[2021-02-23] MEDS: CLOPIDOGREL BISULFATE 75 MG TABLET (FP) PO SCH (09:20)
[2021-02-23] MEDS: LORATADINE 10 MG TABLET PO SCH (09:21)
[2021-02-23] MEDS: ENOXAPARIN NA (PORCINE) 60 MG/0.6 ML DISP.SYRIN SQ SCH ×2 (09:21→23:14)
[2021-02-23 09:25] LABS: BLOOD UREA NITROGEN 26.1 mg/dL (7-18); CALCIUM 7.7 mg/dL (8.5-10.1)
[2021-02-23 09:29] LABS: CREATININE 0.7 mg/dL (0.55-1.3)
[2021-02-23 09:31] LABS: BILIRUBIN,TOTAL 0.2 mg/dL (0.2-1)
[2021-02-23 09:33] LABS: ALBUMIN 2.5 g/dl (3.4-5.0); TOT PROT 5.7 g/dl (6.4-8.2)
[2021-02-23] MEDS: MONTELUKAST NA 10 MG TABLET PO SCH (23:14)
[2021-02-23] MEDS: ATORVASTATIN CA 10 MG TABLET (FP) PO SCH (23:14)
[2021-02-23] MEDS: ACETAMINOPHEN 325 MG TABLET (FP) PO PRN (23:45)
[2021-02-24] MEDS: LEVOTHYROXINE NA 112 MCG TABLET (FP) PO SCH (06:38)
[2021-02-24] MEDS: INSULIN (LEVEMIR) 100 UNITS/ML UNITS SQ SCH ×2 (06:38→21:30)
[2021-02-24] MEDS: INSULIN SLIDING SCALE (NOVOLOG) 1 VIAL SQ SCH ×4 (06:39→21:31)
[2021-02-24] MEDS: metoPROLOL SUCCINATE 25 MG TAB.SR.24H (FP) PO SCH (09:13)
[2021-02-24] MEDS: ENOXAPARIN NA (PORCINE) 60 MG/0.6 ML DISP.SYRIN SQ SCH (09:13)
[2021-02-24] MEDS: ESCITALOPRAM OXALATE 10 MG TABLET PO SCH (09:13)
[2021-02-24] MEDS: LORATADINE 10 MG TABLET PO SCH (09:14)
[2021-02-24] MEDS: CLOPIDOGREL BISULFATE 75 MG TABLET (FP) PO SCH (09:14)
[2021-02-24] MEDS: ENALAPRIL MALEATE 10 MG TABLET PO SCH ×2 (09:15→21:30)
[2021-02-24] MEDS: amLODIPine BESYLATE 10 MG TABLET (FP) PO SCH (09:15)
[2021-02-24] MEDS: APIXABAN 5 MG TABLET PO SCH (21:28)
[2021-02-24] MEDS: MONTELUKAST NA 10 MG TABLET PO SCH (21:29)
[2021-02-24] MEDS: ATORVASTATIN CA 10 MG TABLET (FP) PO SCH (21:34)
[2021-02-24] MEDS: ACETAMINOPHEN 325 MG TABLET (FP) PO PRN (21:37)
[2021-02-25] MEDS: LEVOTHYROXINE NA 112 MCG TABLET (FP) PO SCH (06:26)
[2021-02-25] MEDS: INSULIN (LEVEMIR) 100 UNITS/ML UNITS SQ SCH ×2 (06:26→21:31)
[2021-02-25] MEDS: INSULIN SLIDING SCALE (NOVOLOG) 1 VIAL SQ SCH ×4 (08:27→21:32)
[2021-02-25] MEDS: CLOPIDOGREL BISULFATE 75 MG TABLET (FP) PO SCH (09:10)
[2021-02-25] MEDS: metoPROLOL SUCCINATE 25 MG TAB.SR.24H (FP) PO SCH (09:10)
[2021-02-25] MEDS: LORATADINE 10 MG TABLET PO SCH (09:10)
[2021-02-25] MEDS: ENALAPRIL MALEATE 10 MG TABLET PO SCH ×2 (09:10→21:28)
[2021-02-25] MEDS: APIXABAN 5 MG TABLET PO SCH ×2 (09:10→21:28)
[2021-02-25] MEDS: ESCITALOPRAM OXALATE 10 MG TABLET PO SCH (09:10)
[2021-02-25] MEDS: amLODIPine BESYLATE 10 MG TABLET (FP) PO SCH (09:10)
[2021-02-25] MEDS: MONTELUKAST NA 10 MG TABLET PO SCH (21:28)
[2021-02-25] MEDS ORDERED: ATORVASTATIN CA 40 MG TABLET (FP) PO SCH (22:00)
[2021-02-26] MEDS: LEVOTHYROXINE NA 112 MCG TABLET (FP) PO SCH (06:30)
[2021-02-26] MEDS: INSULIN (LEVEMIR) 100 UNITS/ML UNITS SQ SCH (06:30)
[2021-02-26] MEDS: INSULIN SLIDING SCALE (NOVOLOG) 1 VIAL SQ SCH (06:31)
[2021-02-26 08:02] LABS: BASO % 1.2 % (0-2.0); EOS % 5.6 % (0-4.5); HEMATOCRIT 28.6 % (32.4-45.2); HEMOGLOBIN 9.9 GM/dL (10.7-15.3); LYMPH % 39.3 % (8-40); MCH 30.8 pg (25.7-33.7); MCHC 34.7 g/dl (32.0-36.0); MEAN CELL VOLUME 88.9 fl (80-96); MEAN PLT VOLUME 9.9 fl (7.5-11.1); MONO % 14.6 % (3.8-10.2); NEUT % 39.3 % (42.8-82.8); PLATELET COUNT 192 10^3/uL (134-434); RBC 3.22 M/mm3 (3.60-5.2); RDW 14.3 % (11.6-15.6); WHITE BLOOD COUNT 3.4 K/mm3 (4.0-10.0)
[2021-02-26 08:03] LABS: CHLORIDE 104 mmol/L (98-107); SODIUM 139 mmol/L (136-145)
[2021-02-26 08:12] LABS: CALCIUM 8.8 mg/dL (8.5-10.1)
[2021-02-26 08:13] LABS: ALBUMIN 2.8 g/dl (3.4-5.0); ANION GAP 6 MMOL/L (8-16); BLOOD UREA NITROGEN 11.6 mg/dL (7-18); CO2 29 mmol/L (21-32); GLUCOSE,RANDOM 204 mg/dL (74-106)
[2021-02-26 08:16] LABS: CREATININE 0.6 mg/dL (0.55-1.3); SGOT/AST 50 U/L (15-37); SGPT/ALT 71 U/L (13-61)
[2021-02-26 08:17] LABS: BILIRUBIN,TOTAL 0.4 mg/dL (0.2-1); TOT PROT 6.4 g/dl (6.4-8.2)
[2021-02-26 08:19] LABS: ALK PHOS 108 U/L (45-117)
[2021-02-26] MEDS: LORATADINE 10 MG TABLET PO SCH (09:53)
[2021-02-26] MEDS: APIXABAN 5 MG TABLET PO SCH (09:53)
[2021-02-26] MEDS: ESCITALOPRAM OXALATE 10 MG TABLET PO SCH (09:53)
[2021-02-26] MEDS: CLOPIDOGREL BISULFATE 75 MG TABLET (FP) PO SCH (09:53)
[2021-02-26] MEDS: ENALAPRIL MALEATE 10 MG TABLET PO SCH (09:54)
[2021-02-26] MEDS: amLODIPine BESYLATE 10 MG TABLET (FP) PO SCH (09:54)
[2021-02-26] MEDS: metoPROLOL SUCCINATE 25 MG TAB.SR.24H (FP) PO SCH (09:54)
[2021-02-26 15:52] VITALS: BP 123/73; PULSE 85; TEMP 98
== END 2021-02-26 17:21 | disposition home health service (06) | DRG 300 ==
LOC: JER 18:33 → JERBED 02-22 00:13 → J4W 02-22 18:12
PROVIDERS: ADMIT Internal Medicine; ATTEND Internal Medicine
DX: T81.72XA Complication of vein following a procedure, not elsewhere classified, initial encounter (principal); J90 Pleural effusion, not elsewhere classified; I31.3 Pericardial effusion (noninflammatory); I82.402 Acute embolism and thrombosis of unspecified deep veins of left lower extremity; I26.99 Other pulmonary embolism without acute cor pulmonale; I10 Essential (primary) hypertension; J45.909 Unspecified asthma, uncomplicated; I25.10 Atherosclerotic heart disease of native coronary artery without angina pectoris; E03.9 Hypothyroidism, unspecified; E78.5 Hyperlipidemia, unspecified; Y83.9 Surgical procedure, unspecified as the cause of abnormal reaction of the patient, or of later complication, without mention of misadventure at the time of the procedure
CPT/HCPCS: 36415; 71045-TC-FY; 71275-TC; 74177-TC; 80048; 80053; 81003; 82803; 82962; 83036; 83605; 83880; 84443; 84484; 85025; 85610; 85730; 87040; 87086; 93005; 93010; 93306-TC; 93970-TC; 99285-25; C9803; J0131; Q9967; U0003; U0005

== ENCOUNTER 2021-03-18 16:09 | Inpatient (IN) | payer OTHER ==
[2021-03-18 19:14] LABS: BASO % 1.4 % (0-2.0); EOS % 1.2 % (0-4.5); HEMOGLOBIN 10.8 GM/dL (10.7-15.3); LYMPH % 32.7 % (8-40); MCH 29.4 pg (25.7-33.7); MCHC 32.7 g/dl (32.0-36.0); MEAN CELL VOLUME 89.9 fl (80-96); MONO % 9.2 % (3.8-10.2); NEUT % 55.5 % (42.8-82.8); PLATELET COUNT 351 10^3/uL (134-434); RBC 3.67 M/mm3 (3.60-5.2); RDW 15.4 % (11.6-15.6); WHITE BLOOD COUNT 6.2 K/mm3 (4.0-10.0)
[2021-03-18 19:20] LABS: INR 1.09 (0.83-1.09); PROTHROMBIN TIME (PATIENT) 13.4 SEC (9.7-13.0)
[2021-03-18 19:23] LABS: ACTIVATED PTT 31.1 SECONDS (25.2-36.5)
[2021-03-18 19:31] LABS: CHLORIDE 103 mmol/L (98-107); SODIUM 136 mmol/L (136-145)
[2021-03-18 19:36] LABS: CALCIUM 9.6 mg/dL (8.5-10.1)
[2021-03-18 19:37] LABS: ANION GAP 9 MMOL/L (8-16); BLOOD UREA NITROGEN 31.7 mg/dL (7-18); CO2 24 mmol/L (21-32); GLUCOSE,RANDOM 300 mg/dL (74-106); MAGNESIUM 1.9 mg/dL (1.8-2.4)
[2021-03-18 19:40] LABS: CREATININE 1.2 mg/dL (0.55-1.3); SGOT/AST 11 U/L (15-37); SGPT/ALT 26 U/L (13-61)
[2021-03-18 19:41] LABS: BILIRUBIN,TOTAL 0.2 mg/dL (0.2-1); TOT PROT 8.2 g/dl (6.4-8.2)
[2021-03-18 19:43] LABS: ALK PHOS 127 U/L (45-117)
[2021-03-18 19:45] LABS: N-TERMINAL BNP 633.5 pg/ml (5-125)
[2021-03-18] MEDS ORDERED: INSULIN REGULAR HUMAN 100 UNITS/ML *VIAL SQ ONE (19:48)
[2021-03-18] MEDS ORDERED: ALBUTEROL SO4 2.5/IPRATROPIUM 0.5 INH SOL 3 ML VIAL.NEB. NEB ONE (19:59)
[2021-03-18] MEDS ORDERED: ALBUTEROL SO4 2.5/IPRATROPIUM 0.5 INH SOL 3 ML VIAL.NEB. NEB SCH (20:00)
[2021-03-18] MEDS ORDERED: ALBUTEROL SO4 2.5/IPRATROPIUM 0.5 INH SOL 3 ML VIAL.NEB. NEB PRN (23:02)
[2021-03-19] MEDS: APIXABAN 5 MG TABLET PO SCH ×3 (05:24→22:03)
[2021-03-19] MEDS ORDERED: APIXABAN 5 MG TABLET ONE ×3 (05:26→22:01)
[2021-03-19 07:06] LABS: EOS % 5.5 % (0-4.5); HEMATOCRIT 33.2 % (32.4-45.2); LYMPH % 47.5 % (8-40); MCH 29.7 pg (25.7-33.7); MEAN CELL VOLUME 90.1 fl (80-96); MEAN PLT VOLUME 9.3 fl (7.5-11.1); MONO % 12.3 % (3.8-10.2); NEUT % 32.7 % (42.8-82.8); PLATELET COUNT 318 10^3/uL (134-434); RBC 3.69 M/mm3 (3.60-5.2); RDW 15.6 % (11.6-15.6); WHITE BLOOD COUNT 4.6 K/mm3 (4.0-10.0)
[2021-03-19 07:27] LABS: ALBUMIN 3.6 g/dl (3.4-5.0); CALCIUM 9.1 mg/dL (8.5-10.1)
[2021-03-19 07:30] LABS: CREATININE 0.8 mg/dL (0.55-1.3)
[2021-03-19 07:31] LABS: BILIRUBIN,TOTAL 0.3 mg/dL (0.2-1); TOT PROT 7.3 g/dl (6.4-8.2)
[2021-03-19 07:46] LABS: BLOOD UREA NITROGEN 26.8 mg/dL (7-18)
[2021-03-19] MEDS: INSULIN SLIDING SCALE (NOVOLOG) 1 VIAL SQ SCH (09:00)
[2021-03-19] MEDS: LEVOTHYROXINE NA 112 MCG TABLET (FP) PO SCH (09:00)
[2021-03-19] MEDS ORDERED: ESCITALOPRAM OXALATE 10 MG TABLET ONE (11:41)
[2021-03-19] MEDS ORDERED: amLODIPine BESYLATE 5 MG TABLET (FP) ONE (11:41)
[2021-03-19] MEDS ORDERED: metoPROLOL SUCCINATE 25 MG TAB.SR.24H (FP) ONE (11:41)
[2021-03-19] MEDS ORDERED: CLOPIDOGREL BISULFATE 75 MG TABLET (FP) ONE (11:41)
[2021-03-19] MEDS ORDERED: PT OWN MED DRAWER 7, Y5N ONE (11:42)
[2021-03-19] MEDS: metoPROLOL SUCCINATE 25 MG TAB.SR.24H (FP) PO SCH (11:54)
[2021-03-19] MEDS: CLOPIDOGREL BISULFATE 75 MG TABLET (FP) PO SCH (11:54)
[2021-03-19] MEDS: amLODIPine BESYLATE 5 MG TABLET (FP) PO SCH (11:54)
[2021-03-19] MEDS: ESCITALOPRAM OXALATE 10 MG TABLET PO SCH (11:54)
[2021-03-19] MEDS: ENALAPRIL MALEATE 10 MG TABLET PO SCH (11:55)
[2021-03-19] MEDS ORDERED: ATORVASTATIN CA 40 MG TABLET (FP) ONE (22:01)
[2021-03-19] MEDS: ATORVASTATIN CA 40 MG TABLET (FP) PO SCH (22:03)
[2021-03-20] MEDS: INSULIN SLIDING SCALE (NOVOLOG) 1 VIAL SQ SCH ×6 (04:26→21:19)
[2021-03-20 04:46] VITALS: BMI 23.0
[2021-03-20] MEDS: LEVOTHYROXINE NA 112 MCG TABLET (FP) PO SCH (06:28)
[2021-03-20] MEDS: APIXABAN 5 MG TABLET PO SCH ×2 (09:59→21:17)
[2021-03-20] MEDS: ENALAPRIL MALEATE 10 MG TABLET PO SCH (09:59)
[2021-03-20] MEDS: ESCITALOPRAM OXALATE 10 MG TABLET PO SCH (09:59)
[2021-03-20] MEDS: CLOPIDOGREL BISULFATE 75 MG TABLET (FP) PO SCH (10:00)
[2021-03-20] MEDS: metoPROLOL SUCCINATE 25 MG TAB.SR.24H (FP) PO SCH (10:00)
[2021-03-20] MEDS: amLODIPine BESYLATE 5 MG TABLET (FP) PO SCH (10:00)
[2021-03-20] MEDS ORDERED: INSULIN (NOVOLOG) ASPART 100 UNITS/ML 10ML VIAL ONE (20:31)
[2021-03-20] MEDS: ATORVASTATIN CA 40 MG TABLET (FP) PO SCH (21:17)
[2021-03-21] MEDS: LEVOTHYROXINE NA 112 MCG TABLET (FP) PO SCH (06:35)
[2021-03-21] MEDS: INSULIN SLIDING SCALE (NOVOLOG) 1 VIAL SQ SCH ×4 (06:39→21:30)
[2021-03-21] MEDS ORDERED: PT OWN MED DRAWER 7, Y5N ONE (08:02)
[2021-03-21] MEDS: amLODIPine BESYLATE 5 MG TABLET (FP) PO SCH (09:19)
[2021-03-21] MEDS: ENALAPRIL MALEATE 10 MG TABLET PO SCH (09:19)
[2021-03-21] MEDS: APIXABAN 5 MG TABLET PO SCH ×2 (09:20→21:28)
[2021-03-21] MEDS: ESCITALOPRAM OXALATE 10 MG TABLET PO SCH (09:20)
[2021-03-21] MEDS: CLOPIDOGREL BISULFATE 75 MG TABLET (FP) PO SCH (09:20)
[2021-03-21] MEDS: metoPROLOL SUCCINATE 25 MG TAB.SR.24H (FP) PO SCH (09:20)
[2021-03-21] MEDS: ALBUTEROL SO4 2.5/IPRATROPIUM 0.5 INH SOL 3 ML VIAL.NEB. NEB SCH ×3 (12:20→20:30)
[2021-03-21] MEDS: methylPREDNISolone NA SUCC 40 MG/1 ML VIAL IVPUSH SCH ×2 (14:35→17:45)
[2021-03-21] MEDS: BUDESONIDE/FORMETEROL FUMARATE 160/4.5 mcg INHALER IH SCH ×2 (14:39→21:31)
[2021-03-21] MEDS: ATORVASTATIN CA 40 MG TABLET (FP) PO SCH (21:28)
[2021-03-22] MEDS: methylPREDNISolone NA SUCC 40 MG/1 ML VIAL IVPUSH SCH ×3 (01:00→18:26)
[2021-03-22] MEDS: INSULIN SLIDING SCALE (NOVOLOG) 1 VIAL SQ SCH ×4 (06:15→22:45)
[2021-03-22] MEDS: LEVOTHYROXINE NA 112 MCG TABLET (FP) PO SCH (06:16)
[2021-03-22] MEDS: ALBUTEROL SO4 2.5/IPRATROPIUM 0.5 INH SOL 3 ML VIAL.NEB. NEB SCH ×4 (08:57→20:26)
[2021-03-22] MEDS: amLODIPine BESYLATE 5 MG TABLET (FP) PO SCH (09:35)
[2021-03-22] MEDS: ENALAPRIL MALEATE 10 MG TABLET PO SCH (09:35)
[2021-03-22] MEDS: ESCITALOPRAM OXALATE 10 MG TABLET PO SCH (09:36)
[2021-03-22] MEDS: CLOPIDOGREL BISULFATE 75 MG TABLET (FP) PO SCH (09:36)
[2021-03-22] MEDS: APIXABAN 5 MG TABLET PO SCH ×2 (09:36→21:42)
[2021-03-22] MEDS: metoPROLOL SUCCINATE 25 MG TAB.SR.24H (FP) PO SCH (09:36)
[2021-03-22] MEDS: BUDESONIDE/FORMETEROL FUMARATE 160/4.5 mcg INHALER IH SCH ×2 (09:38→22:46)
[2021-03-22] MEDS ORDERED: INSULIN (NOVOLOG) ASPART 100 UNITS/ML 10ML VIAL ONE (21:33)
[2021-03-22] MEDS: ATORVASTATIN CA 40 MG TABLET (FP) PO SCH (21:42)
[2021-03-23] MEDS: methylPREDNISolone NA SUCC 40 MG/1 ML VIAL IVPUSH SCH ×3 (02:18→17:50)
[2021-03-23] MEDS: metFORMIN HCL 500 MG TABLET (FP) PO SCH ×2 (06:13→17:49)
[2021-03-23] MEDS: INSULIN SLIDING SCALE (NOVOLOG) 1 VIAL SQ SCH ×4 (06:13→22:11)
[2021-03-23] MEDS: LEVOTHYROXINE NA 112 MCG TABLET (FP) PO SCH (06:13)
[2021-03-23] MEDS: ALBUTEROL SO4 2.5/IPRATROPIUM 0.5 INH SOL 3 ML VIAL.NEB. NEB SCH ×4 (08:37→20:50)
[2021-03-23] MEDS: CLOPIDOGREL BISULFATE 75 MG TABLET (FP) PO SCH (09:17)
[2021-03-23] MEDS: ESCITALOPRAM OXALATE 10 MG TABLET PO SCH (09:17)
[2021-03-23] MEDS: ENALAPRIL MALEATE 10 MG TABLET PO SCH (09:17)
[2021-03-23] MEDS: metoPROLOL SUCCINATE 25 MG TAB.SR.24H (FP) PO SCH (09:17)
[2021-03-23] MEDS: amLODIPine BESYLATE 5 MG TABLET (FP) PO SCH (09:17)
[2021-03-23] MEDS: APIXABAN 5 MG TABLET PO SCH ×2 (09:17→22:10)
[2021-03-23] MEDS: BUDESONIDE/FORMETEROL FUMARATE 160/4.5 mcg INHALER IH SCH ×2 (09:18→22:11)
[2021-03-23] MEDS: ATORVASTATIN CA 40 MG TABLET (FP) PO SCH (22:10)
[2021-03-24] MEDS: methylPREDNISolone NA SUCC 40 MG/1 ML VIAL IVPUSH SCH ×3 (02:46→17:08)
[2021-03-24] MEDS: LEVOTHYROXINE NA 112 MCG TABLET (FP) PO SCH (06:01)
[2021-03-24] MEDS: metFORMIN HCL 500 MG TABLET (FP) PO SCH ×2 (06:01→17:07)
[2021-03-24] MEDS: INSULIN SLIDING SCALE (NOVOLOG) 1 VIAL SQ SCH ×4 (06:02→22:23)
[2021-03-24 07:38] LABS: HEMATOCRIT 33.1 % (32.4-45.2); HEMOGLOBIN 11.1 GM/dL (10.7-15.3); MCH 30.1 pg (25.7-33.7); MCHC 33.5 g/dl (32.0-36.0); MEAN CELL VOLUME 89.8 fl (80-96); MEAN PLT VOLUME 10.5 fl (7.5-11.1); PLATELET COUNT 196 10^3/uL (134-434); RBC 3.69 M/mm3 (3.60-5.2); WHITE BLOOD COUNT 9.9 K/mm3 (4.0-10.0)
[2021-03-24] MEDS: ALBUTEROL SO4 2.5/IPRATROPIUM 0.5 INH SOL 3 ML VIAL.NEB. NEB SCH ×4 (07:42→19:55)
[2021-03-24 07:50] LABS: ALBUMIN 3.1 g/dl (3.4-5.0); BLOOD UREA NITROGEN 34.4 mg/dL (7-18); CALCIUM 8.9 mg/dL (8.5-10.1)
[2021-03-24 07:52] LABS: CREATININE 0.9 mg/dL (0.55-1.3)
[2021-03-24 07:54] LABS: BILIRUBIN,TOTAL 0.5 mg/dL (0.2-1); TOT PROT 6.8 g/dl (6.4-8.2)
[2021-03-24] MEDS: metoPROLOL SUCCINATE 25 MG TAB.SR.24H (FP) PO SCH (09:10)
[2021-03-24] MEDS: ESCITALOPRAM OXALATE 10 MG TABLET PO SCH (09:10)
[2021-03-24] MEDS: amLODIPine BESYLATE 5 MG TABLET (FP) PO SCH (09:12)
[2021-03-24] MEDS: CLOPIDOGREL BISULFATE 75 MG TABLET (FP) PO SCH (09:12)
[2021-03-24] MEDS: APIXABAN 5 MG TABLET PO SCH ×2 (09:12→22:09)
[2021-03-24] MEDS: ENALAPRIL MALEATE 10 MG TABLET PO SCH (09:13)
[2021-03-24] MEDS: BUDESONIDE/FORMETEROL FUMARATE 160/4.5 mcg INHALER IH SCH ×2 (09:15→22:00)
[2021-03-24 09:24] LABS: ANISOCYTOSIS 0; MACROCYTOSIS 0; PLATELET ESTIMATE NORMAL
[2021-03-24] MEDS: guaiFENesin 200 MG/10 ML 10 ML UNIT-DOSE CUPS PO PRN (15:03)
[2021-03-24] MEDS: ATORVASTATIN CA 40 MG TABLET (FP) PO SCH (22:09)
[2021-03-25] MEDS: methylPREDNISolone NA SUCC 40 MG/1 ML VIAL IVPUSH SCH ×3 (01:34→17:18)
[2021-03-25] MEDS: INSULIN SLIDING SCALE (NOVOLOG) 1 VIAL SQ SCH ×4 (06:46→21:29)
[2021-03-25] MEDS: metFORMIN HCL 500 MG TABLET (FP) PO SCH ×2 (06:47→17:17)
[2021-03-25] MEDS: LEVOTHYROXINE NA 112 MCG TABLET (FP) PO SCH (06:47)
[2021-03-25] MEDS: ALBUTEROL SO4 2.5/IPRATROPIUM 0.5 INH SOL 3 ML VIAL.NEB. NEB SCH ×4 (08:15→20:09)
[2021-03-25] MEDS: amLODIPine BESYLATE 5 MG TABLET (FP) PO SCH (10:36)
[2021-03-25] MEDS: ENALAPRIL MALEATE 10 MG TABLET PO SCH (10:36)
[2021-03-25] MEDS: APIXABAN 5 MG TABLET PO SCH ×2 (10:37→21:28)
[2021-03-25] MEDS: CLOPIDOGREL BISULFATE 75 MG TABLET (FP) PO SCH (10:37)
[2021-03-25] MEDS: ESCITALOPRAM OXALATE 10 MG TABLET PO SCH (10:37)
[2021-03-25] MEDS: metoPROLOL SUCCINATE 25 MG TAB.SR.24H (FP) PO SCH (10:37)
[2021-03-25] MEDS: BUDESONIDE/FORMETEROL FUMARATE 160/4.5 mcg INHALER IH SCH ×2 (10:41→21:30)
[2021-03-25] MEDS ORDERED: PT OWN MED DRAWER 7, Y5N ONE (15:36)
[2021-03-25] MEDS: TIOTROPIUM BROMIDE 2.5 MCG (SPIRIVA) RESPIMAT INHALER IH SCH (15:41)
[2021-03-25] MEDS: guaiFENesin 200 MG/10 ML 10 ML UNIT-DOSE CUPS PO PRN (21:28)
[2021-03-25] MEDS: MONTELUKAST NA 10 MG TABLET PO SCH (21:28)
[2021-03-25] MEDS: ATORVASTATIN CA 40 MG TABLET (FP) PO SCH (21:28)
[2021-03-26] MEDS: methylPREDNISolone NA SUCC 40 MG/1 ML VIAL IVPUSH SCH ×3 (02:00→21:06)
[2021-03-26] MEDS: INSULIN SLIDING SCALE (NOVOLOG) 1 VIAL SQ SCH ×4 (06:24→21:06)
[2021-03-26] MEDS: LEVOTHYROXINE NA 112 MCG TABLET (FP) PO SCH (06:25)
[2021-03-26] MEDS: metFORMIN HCL 500 MG TABLET (FP) PO SCH ×2 (06:25→17:13)
[2021-03-26 07:05] LABS: BASO % 0.1 % (0-2.0); HEMATOCRIT 35.9 % (32.4-45.2); LYMPH % 10.7 % (8-40); MCH 30.2 pg (25.7-33.7); MCHC 33.5 g/dl (32.0-36.0); MEAN CELL VOLUME 90.2 fl (80-96); MEAN PLT VOLUME 10.7 fl (7.5-11.1); NEUT % 85.2 % (42.8-82.8); PLATELET COUNT 174 10^3/uL (134-434); RBC 3.99 M/mm3 (3.60-5.2); RDW 14.6 % (11.6-15.6); WHITE BLOOD COUNT 7.1 K/mm3 (4.0-10.0)
[2021-03-26 07:23] LABS: BLOOD UREA NITROGEN 31.7 mg/dL (7-18); CALCIUM 8.9 mg/dL (8.5-10.1)
[2021-03-26 07:26] LABS: CREATININE 0.8 mg/dL (0.55-1.3)
[2021-03-26 07:27] LABS: BILIRUBIN,TOTAL 0.4 mg/dL (0.2-1); TOT PROT 6.6 g/dl (6.4-8.2)
[2021-03-26] MEDS: ALBUTEROL SO4 2.5/IPRATROPIUM 0.5 INH SOL 3 ML VIAL.NEB. NEB SCH (08:28)
[2021-03-26] MEDS: ENALAPRIL MALEATE 10 MG TABLET PO SCH (10:14)
[2021-03-26] MEDS: TIOTROPIUM BROMIDE 2.5 MCG (SPIRIVA) RESPIMAT INHALER IH SCH (10:14)
[2021-03-26] MEDS: BUDESONIDE/FORMETEROL FUMARATE 160/4.5 mcg INHALER IH SCH ×2 (10:14→21:05)
[2021-03-26] MEDS: metoPROLOL SUCCINATE 25 MG TAB.SR.24H (FP) PO SCH (10:15)
[2021-03-26] MEDS: CLOPIDOGREL BISULFATE 75 MG TABLET (FP) PO SCH (10:15)
[2021-03-26] MEDS: APIXABAN 5 MG TABLET PO SCH ×2 (10:15→21:06)
[2021-03-26] MEDS: amLODIPine BESYLATE 5 MG TABLET (FP) PO SCH (10:15)
[2021-03-26] MEDS: ESCITALOPRAM OXALATE 10 MG TABLET PO SCH (10:15)
[2021-03-26] MEDS: ATORVASTATIN CA 40 MG TABLET (FP) PO SCH (21:06)
[2021-03-26] MEDS: MONTELUKAST NA 10 MG TABLET PO SCH (21:06)
[2021-03-27] MEDS: LEVOTHYROXINE NA 112 MCG TABLET (FP) PO SCH (06:28)
[2021-03-27] MEDS: INSULIN SLIDING SCALE (NOVOLOG) 1 VIAL SQ SCH ×4 (06:28→22:44)
[2021-03-27] MEDS: metFORMIN HCL 500 MG TABLET (FP) PO SCH ×2 (06:28→17:21)
[2021-03-27] MEDS: CLOPIDOGREL BISULFATE 75 MG TABLET (FP) PO SCH (09:31)
[2021-03-27] MEDS: APIXABAN 5 MG TABLET PO SCH ×2 (09:31→22:44)
[2021-03-27] MEDS: ESCITALOPRAM OXALATE 10 MG TABLET PO SCH (09:31)
[2021-03-27] MEDS: amLODIPine BESYLATE 5 MG TABLET (FP) PO SCH (09:31)
[2021-03-27] MEDS: BUDESONIDE/FORMETEROL FUMARATE 160/4.5 mcg INHALER IH SCH ×2 (09:32→22:44)
[2021-03-27] MEDS: methylPREDNISolone NA SUCC 40 MG/1 ML VIAL IVPUSH SCH ×2 (09:32→22:44)
[2021-03-27] MEDS: ENALAPRIL MALEATE 10 MG TABLET PO SCH (09:32)
[2021-03-27] MEDS: TIOTROPIUM BROMIDE 2.5 MCG (SPIRIVA) RESPIMAT INHALER IH SCH (09:32)
[2021-03-27] MEDS: metoPROLOL SUCCINATE 25 MG TAB.SR.24H (FP) PO SCH (09:32)
[2021-03-27] MEDS ORDERED: INSULIN (NOVOLOG) ASPART 100 UNITS/ML 10ML VIAL ONE ×2 (11:54→17:18)
[2021-03-27] MEDS ORDERED: PANTOPRAZOLE 40 MG TABLET PO ONE (22:15)
[2021-03-27] MEDS: ATORVASTATIN CA 40 MG TABLET (FP) PO SCH (22:43)
[2021-03-27] MEDS: MONTELUKAST NA 10 MG TABLET PO SCH (22:43)
[2021-03-28] MEDS: INSULIN SLIDING SCALE (NOVOLOG) 1 VIAL SQ SCH ×3 (06:35→16:28)
[2021-03-28] MEDS: LEVOTHYROXINE NA 112 MCG TABLET (FP) PO SCH (06:35)
[2021-03-28] MEDS: metFORMIN HCL 500 MG TABLET (FP) PO SCH ×2 (06:35→16:29)
[2021-03-28] MEDS ORDERED: PT OWN MED DRAWER 7, Y5N ONE (09:29)
[2021-03-28] MEDS: APIXABAN 5 MG TABLET PO SCH (09:31)
[2021-03-28] MEDS: CLOPIDOGREL BISULFATE 75 MG TABLET (FP) PO SCH (09:31)
[2021-03-28] MEDS: amLODIPine BESYLATE 5 MG TABLET (FP) PO SCH (09:31)
[2021-03-28] MEDS: ESCITALOPRAM OXALATE 10 MG TABLET PO SCH (09:31)
[2021-03-28] MEDS: metoPROLOL SUCCINATE 25 MG TAB.SR.24H (FP) PO SCH (09:32)
[2021-03-28] MEDS: ENALAPRIL MALEATE 10 MG TABLET PO SCH (09:32)
[2021-03-28] MEDS: TIOTROPIUM BROMIDE 2.5 MCG (SPIRIVA) RESPIMAT INHALER IH SCH (09:33)
[2021-03-28] MEDS: BUDESONIDE/FORMETEROL FUMARATE 160/4.5 mcg INHALER IH SCH (09:33)
[2021-03-28] MEDS ORDERED: predniSONE 20 MG TABLET (UD) PO SCH (10:00)
[2021-03-28] MEDS ORDERED: INSULIN (NOVOLOG) ASPART 100 UNITS/ML 10ML VIAL ONE (11:22)
[2021-03-28 15:53] VITALS: BP 104/57; PULSE 74; TEMP 98.5
== END 2021-03-28 17:14 | disposition home or self-care (01) | DRG 202 ==
LOC: JER 16:09 → JERBED 20:02 → OBSVTOIN 23:01 → J4W 03-19 23:05 → J8W 03-27 18:28
PROVIDERS: ADMIT Internal Medicine; ATTEND Internal Medicine
DX: J45.901 Unspecified asthma with (acute) exacerbation (principal); I50.32 Chronic diastolic (congestive) heart failure; I25.10 Atherosclerotic heart disease of native coronary artery without angina pectoris; E78.5 Hyperlipidemia, unspecified; Z95.1 Presence of aortocoronary bypass graft; Z86.711 Personal history of pulmonary embolism; Z79.01 Long term (current) use of anticoagulants; E03.9 Hypothyroidism, unspecified; E87.5 Hyperkalemia; E11.65 Type 2 diabetes mellitus with hyperglycemia; I11.0 Hypertensive heart disease with heart failure; D64.9 Anemia, unspecified; Z79.4 Long term (current) use of insulin
CPT/HCPCS: 36415; 71046-TC-FY; 71260-TC; 76882-TC-RT-FY; 80053; 80061; 82550; 82947; 82962; 83735; 83880; 84439; 84443; 84484; 85025; 85027; 85610; 85730; 93005; 93010; 93970-TC; 94150; 94640; 94761; 99285-25; C9803; G0378; Q9967; U0003; U0005

== ENCOUNTER → 2021-06-26 | Day surgery (SDC) | payer OTHER | END | disposition home or self-care (01) | LOC: JRADUS-SUR 08:42 | PROVIDERS: ATTEND Surgery | PROC: 0HBT3ZX Excision of Right Breast, Percutaneous Approach, Diagnostic (ICD-10-PCS; principal; 2021-06-26) | PROC: 07B53ZX Excision of Right Axillary Lymphatic, Percutaneous Approach, Diagnostic (ICD-10-PCS; 2021-06-26) | PROC: BH40ZZZ Ultrasonography of Right Breast (ICD-10-PCS; 2021-06-26) | DX: C50.411 Malignant neoplasm of upper-outer quadrant of right female breast (principal); Z17.0 Estrogen receptor positive status [ER+]; N63.11 Unspecified lump in the right breast, upper outer quadrant; R59.9 Enlarged lymph nodes, unspecified | CPT/HCPCS: 19083; 19084; 77065-TC; 87899; A4648 ==

== ENCOUNTER → 2021-08-07 | Day surgery (SDC) | payer OTHER | END | disposition home or self-care (01) | LOC: JRADUS-SUR 09:50 | PROVIDERS: ATTEND Surgery | PROC: 07D53ZX Extraction of Right Axillary Lymphatic, Percutaneous Approach, Diagnostic (ICD-10-PCS; principal; 2021-08-07) | DX: C77.3 Secondary and unspecified malignant neoplasm of axilla and upper limb lymph nodes (principal); C50.911 Malignant neoplasm of unspecified site of right female breast | CPT/HCPCS: 19083; 87899; 88305-TC; A4648 ==

== ENCOUNTER 2022-03-17 22:09 | Emergency (ER) | payer OTHER ==
[2022-03-17 22:27] VITALS: BMI 26.4
[2022-03-17] MEDS ORDERED: ALBUTEROL SO4 0.083% IH SOL 2.5 MG/3 ML VIAL.NEB. NEB ONE ×2 (22:53→23:31)
[2022-03-17] MEDS ORDERED: methylPREDNISolone NA SUCC 125 MG/2 ML VIAL IVPB ONE (22:53)
[2022-03-17 23:22] LABS: BASO % 1.3 % (0-2.0); EOS % 3.9 % (0-4.5); HEMATOCRIT 42.6 % (32.4-45.2); HEMOGLOBIN 14.3 GM/dL (10.7-15.3); LYMPH % 21.1 % (8-40); MCH 30.5 pg (25.7-33.7); MCHC 33.6 g/dl (32.0-36.0); MEAN CELL VOLUME 90.8 fl (80-96); MEAN PLT VOLUME 9.6 fl (7.5-11.1); MONO % 9.6 % (3.8-10.2); NEUT % 64.1 % (42.8-82.8); PLATELET COUNT 222 10^3/uL (134-434); RBC 4.69 M/mm3 (3.60-5.2); RDW 12.7 % (11.6-15.6); WHITE BLOOD COUNT 7.1 K/mm3 (4.0-10.0)
[2022-03-17] MEDS ORDERED: methylPREDNISolone NA SUCC 125 MG/2 ML VIAL ONE (23:31)
[2022-03-17 23:38] LABS: BLOOD UREA NITROGEN 19.8 mg/dL (7-18); CALCIUM 9.4 mg/dL (8.5-10.1)
[2022-03-17 23:39] LABS: ALBUMIN 3.9 g/dl (3.4-5.0)
[2022-03-17 23:43] LABS: BILIRUBIN,TOTAL 0.3 mg/dL (0.2-1); CREATININE 0.8 mg/dL (0.55-1.3); TOT PROT 7.6 g/dl (6.4-8.2)
[2022-03-17 23:46] LABS: N-TERMINAL BNP 219.4 pg/ml (5-125)
[2022-03-18] MEDS ORDERED: ACETAMINOPHEN 500 MG TABLET (FP) PO ONE (00:02)
[2022-03-18] MEDS ORDERED: ACETAMINOPHEN 500 MG TABLET (FP) ONE (00:29)
[2022-03-18] MEDS ORDERED: SODIUM CHLORIDE 0.9% 500 ML INFUS.BAG IV ONE (01:28)
[2022-03-18 04:52] VITALS: TEMP 98
[2022-03-18] MEDS ORDERED: ALBUTEROL SO4 2.5/IPRATROPIUM 0.5 INH SOL 3 ML VIAL.NEB. NEB ONE ×3 (07:13→08:31)
[2022-03-18 08:59] VITALS: BP 165/106; PULSE 68; RESP 20
== END 2022-03-18 09:14 | disposition home or self-care (01) ==
LOC: JER 22:09
PROC: 3E0F7GC Introduction of Other Therapeutic Substance into Respiratory Tract, Via Natural or Artificial Opening (ICD-10-PCS; principal; 2022-03-17)
PROC: 3E0F7GC Introduction of Other Therapeutic Substance into Respiratory Tract, Via Natural or Artificial Opening (ICD-10-PCS; 2022-03-17)
PROC: 3E033GC Introduction of Other Therapeutic Substance into Peripheral Vein, Percutaneous Approach (ICD-10-PCS; 2022-03-17)
DX: R06.02 Shortness of breath (principal); R10.12 Left upper quadrant pain
CPT/HCPCS: 36415; 71045-TC-FY; 71275-TC; 80053; 83880; 84484; 85025; 93005; 93010; 94640; 96374; 99285-25; C9803-CS; U0003; U0005

== ENCOUNTER 2022-07-22 09:43 | Day surgery (SDC) | payer OTHER ==
[~2022-07-22 09:43] MED LIST: CYCLOPHOSPHAMIDE INJECTION 1,000 MG in SODIUM CHLORIDE 250 ML IVPB ONE; DEXAMETHASONE SODIUM PHOSPHATE 10 MG in SODIUM CHLORIDE 50 ML IVPB ONE; DOXOrubicin HCL 50 MG/25 ML VIAL IV ONE; FOSAPREPITANT DIMEGLUMINE 150 MG in SODIUM CHLORIDE 145 ML IVPB ONE; PALONOSETRON HCL 0.25 MG/5 ML VIAL IVPUSH ONE
[2022-07-22] MEDS ORDERED: CYCLOPHOSPHAMIDE INJECTION 1,000 MG in SODIUM CHLORIDE 250 ML IVPB ONE (10:00)
[2022-07-22] MEDS ORDERED: DOXOrubicin HCL 50 MG/25 ML VIAL IV ONE (10:30)
[2022-07-22 10:52] LABS: BASO % 1.1 % (0-2.0); EOS % 6.9 % (0-4.5); HEMATOCRIT 34.5 % (32.4-45.2); HEMOGLOBIN 11.7 GM/dL (10.7-15.3); LYMPH % 34.4 % (8-40); MCH 30.8 pg (25.7-33.7); MEAN CELL VOLUME 90.5 fl (80-96); NEUT % 46.6 % (42.8-82.8); PLATELET COUNT 174 10^3/uL (134-434); RBC 3.81 M/mm3 (3.60-5.2); RDW 13.9 % (11.6-15.6); WHITE BLOOD COUNT 4.8 K/mm3 (4.0-10.0)
[2022-07-22 11:07] LABS: ALBUMIN 3.6 g/dl (3.4-5.0); BLOOD UREA NITROGEN 27.1 mg/dL (7-18); CALCIUM 9.3 mg/dL (8.5-10.1)
[2022-07-22 11:10] LABS: BILIRUBIN,DIRECT 0.1 mg/dL (0.0-0.2)
[2022-07-22 11:12] LABS: BILIRUBIN,TOTAL 0.3 mg/dL (0.2-1); TOT PROT 7.4 g/dl (6.4-8.2)
[2022-07-22 14:53] VITALS: PULSE 60; RESP 20; TEMP 97.6
== END 2022-07-22 11:30 | disposition home or self-care (01) ==
LOC: JONCCHEMO 09:43
PROVIDERS: ATTEND Internal Medicine Hematology & Oncology
DX: Z53.8 Procedure and treatment not carried out for other reasons (principal)
CPT/HCPCS: 36415; 80048; 80076; 85025; 96365

== ENCOUNTER 2022-07-29 09:28 | Day surgery (SDC) | payer OTHER ==
[2022-07-29 10:08] LABS: BASO % 2.1 % (0-2.0); EOS % 7.1 % (0-4.5); HEMATOCRIT 35.2 % (32.4-45.2); HEMOGLOBIN 11.8 GM/dL (10.7-15.3); LYMPH % 43.2 % (8-40); MCHC 33.6 g/dl (32.0-36.0); MEAN CELL VOLUME 89.1 fl (80-96); MEAN PLT VOLUME 10.1 fl (7.5-11.1); MONO % 13.6 % (3.8-10.2); PLATELET COUNT 222 10^3/uL (134-434); RBC 3.95 M/mm3 (3.60-5.2); RDW 13.9 % (11.6-15.6); WHITE BLOOD COUNT 3.5 K/mm3 (4.0-10.0)
[2022-07-29 10:28] LABS: CALCIUM 9.2 mg/dL (8.5-10.1)
[2022-07-29 10:29] LABS: BLOOD UREA NITROGEN 30.6 mg/dL (7-18)
[2022-07-29 10:30] LABS: ALBUMIN 3.7 g/dl (3.4-5.0)
[2022-07-29 10:32] LABS: CREATININE 0.9 mg/dL (0.55-1.3)
[2022-07-29 10:33] LABS: BILIRUBIN,DIRECT 0.1 mg/dL (0.0-0.2)
[2022-07-29 10:36] LABS: BILIRUBIN,TOTAL 0.3 mg/dL (0.2-1); TOT PROT 7.4 g/dl (6.4-8.2)
[2022-07-29] MEDS ORDERED: FOSAPREPITANT DIMEGLUMINE 150 MG in SODIUM CHLORIDE 145 ML IVPB ONE (11:00)
[2022-07-29] MEDS ORDERED: PALONOSETRON HCL 0.25 MG/5 ML VIAL IVPUSH ONE (11:00)
[2022-07-29] MEDS ORDERED: DEXAMETHASONE SODIUM PHOSPHATE 10 MG in SODIUM CHLORIDE 50 ML IVPB ONE (11:00)
[2022-07-29] MEDS ORDERED: DOXOrubicin HCL 50 MG/25 ML VIAL IV ONE (11:30)
[2022-07-29] MEDS ORDERED: CYCLOPHOSPHAMIDE INJECTION 1,000 MG in SODIUM CHLORIDE 250 ML IVPB ONE (12:00)
[2022-07-29 16:07] VITALS: BP 121/76; PULSE 67; RESP 20; TEMP 97.9
[2022-07-29] MEDS ORDERED: PORTA CATH FLUSH 10 ML IVPUSH PRN (16:38)
== END 2022-07-29 13:00 | disposition home or self-care (01) ==
LOC: JONCCHEMO 09:28
PROVIDERS: ATTEND Internal Medicine Hematology & Oncology
PROC: 3E013GC Introduction of Other Therapeutic Substance into Subcutaneous Tissue, Percutaneous Approach (ICD-10-PCS; principal; 2022-07-29)
DX: C50.411 Malignant neoplasm of upper-outer quadrant of right female breast (principal); Z17.0 Estrogen receptor positive status [ER+]
CPT/HCPCS: 36415; 80048; 80076; 85025; 96401; J1453; J2469; J9070

== ENCOUNTER 2022-07-30 10:40 | Day surgery (SDC) | payer OTHER ==
[~2022-07-30 10:40] MED LIST changes: -CYCLOPHOSPHAMIDE INJECTION 1,000 MG in SODIUM CHLORIDE 250 ML IVPB ONE; -DEXAMETHASONE SODIUM PHOSPHATE 10 MG in SODIUM CHLORIDE 50 ML IVPB ONE; -DOXOrubicin HCL 50 MG/25 ML VIAL IV ONE; -FOSAPREPITANT DIMEGLUMINE 150 MG in SODIUM CHLORIDE 145 ML IVPB ONE; -PALONOSETRON HCL 0.25 MG/5 ML VIAL IVPUSH ONE; +PEGFILGRASTIM-BMEZ 6 MG/0.6 ML SYRINGE SQ ONE
[2022-07-30 17:45] VITALS: BP 158/71; PULSE 90; RESP 16; TEMP 97.8
== END 2022-07-30 12:30 | disposition home or self-care (01) ==
LOC: JONCCHEMO 10:40
PROVIDERS: ATTEND Internal Medicine Hematology & Oncology
PROC: 3E013GC Introduction of Other Therapeutic Substance into Subcutaneous Tissue, Percutaneous Approach (ICD-10-PCS; principal; 2022-07-30)
DX: C50.411 Malignant neoplasm of upper-outer quadrant of right female breast (principal); Z17.0 Estrogen receptor positive status [ER+]
CPT/HCPCS: 96372; Q5120

== ENCOUNTER 2022-08-19 09:23 | Day surgery (SDC) | payer OTHER ==
[2022-08-19] MEDS ORDERED: PALONOSETRON HCL 0.25 MG/5 ML VIAL IVPUSH ONE (10:00)
[2022-08-19] MEDS ORDERED: DEXAMETHASONE SODIUM PHOSPHATE 10 MG in SODIUM CHLORIDE 50 ML IVPB ONE (10:00)
[2022-08-19] MEDS ORDERED: FOSAPREPITANT DIMEGLUMINE 150 MG in SODIUM CHLORIDE 145 ML IVPB ONE (10:00)
[2022-08-19] MEDS ORDERED: DOXOrubicin HCL 50 MG/25 ML VIAL IV ONE (10:30)
[2022-08-19 10:33] LABS: BASO % 1.3 % (0-2.0); EOS % 0.7 % (0-4.5); HEMATOCRIT 31.5 % (32.4-45.2); HEMOGLOBIN 10.5 GM/dL (10.7-15.3); LYMPH % 25.7 % (8-40); MCH 29.3 pg (25.7-33.7); MCHC 33.2 g/dl (32.0-36.0); MEAN CELL VOLUME 88.1 fl (80-96); MEAN PLT VOLUME 9.5 fl (7.5-11.1); NEUT % 57.3 % (42.8-82.8); PLATELET COUNT 329 10^3/uL (134-434); RBC 3.58 M/mm3 (3.60-5.2); RDW 14.1 % (11.6-15.6); WHITE BLOOD COUNT 7.6 K/mm3 (4.0-10.0)
[2022-08-19] MEDS ORDERED: CYCLOPHOSPHAMIDE INJECTION 1,000 MG in SODIUM CHLORIDE 250 ML IVPB ONE (11:00)
[2022-08-19 11:01] LABS: CALCIUM 9.5 mg/dL (8.5-10.1)
[2022-08-19 11:02] LABS: ALBUMIN 3.8 g/dl (3.4-5.0); BLOOD UREA NITROGEN 21.5 mg/dL (7-18)
[2022-08-19 11:04] LABS: BILIRUBIN,DIRECT 0.1 mg/dL (0.0-0.2)
[2022-08-19 11:06] LABS: CREATININE 0.8 mg/dL (0.55-1.3)
[2022-08-19 11:20] LABS: BILIRUBIN,TOTAL 0.2 mg/dL (0.2-1)
[2022-08-19 18:42] VITALS: BP 170/86; PULSE 73; RESP 20; TEMP 98.3
[2022-08-19] MEDS ORDERED: PORTA CATH FLUSH 10 ML IVPUSH PRN (18:42)
== END 2022-08-19 16:45 | disposition home or self-care (01) ==
LOC: JONCCHEMO 09:23
PROVIDERS: ATTEND Internal Medicine Hematology & Oncology
DX: Z51.11 Encounter for antineoplastic chemotherapy (principal); C50.411 Malignant neoplasm of upper-outer quadrant of right female breast; Z17.0 Estrogen receptor positive status [ER+]
CPT/HCPCS: 36415; 80048; 80076; 85025; 96367; 96375; 96411; 96413; J1453; J2469; J9070

== ENCOUNTER 2022-08-20 11:52 | Day surgery (SDC) | payer OTHER ==
[2022-08-20 13:56] VITALS: BP 185/89; PULSE 62; RESP 18; TEMP 97.6
== END 2022-08-20 12:15 | disposition home or self-care (01) ==
LOC: JONCCHEMO 11:52
PROVIDERS: ATTEND Internal Medicine Hematology & Oncology
PROC: 3E013GC Introduction of Other Therapeutic Substance into Subcutaneous Tissue, Percutaneous Approach (ICD-10-PCS; principal; 2022-08-20)
DX: C50.411 Malignant neoplasm of upper-outer quadrant of right female breast (principal); Z17.0 Estrogen receptor positive status [ER+]; Z76.89 Persons encountering health services in other specified circumstances
CPT/HCPCS: 96372; Q5120

== ENCOUNTER 2022-09-09 09:02 | Day surgery (SDC) | payer OTHER ==
[2022-09-09 10:05] LABS: BASO % 1.3 % (0-2.0); EOS % 2.4 % (0-4.5); HEMATOCRIT 31.4 % (32.4-45.2); HEMOGLOBIN 10.9 GM/dL (10.7-15.3); MCHC 34.7 g/dl (32.0-36.0); MEAN CELL VOLUME 89.4 fl (80-96); MEAN PLT VOLUME 9.8 fl (7.5-11.1); MONO % 18.8 % (3.8-10.2); NEUT % 49.5 % (42.8-82.8); PLATELET COUNT 210 10^3/uL (134-434); RBC 3.51 M/mm3 (3.60-5.2); RDW 16.2 % (11.6-15.6)
[2022-09-09] MEDS ORDERED: FOSAPREPITANT DIMEGLUMINE 150 MG in SODIUM CHLORIDE 145 ML IVPB ONE (10:15)
[2022-09-09] MEDS ORDERED: DEXAMETHASONE SODIUM PHOSPHATE 10 MG in SODIUM CHLORIDE 50 ML IVPB ONE (10:15)
[2022-09-09] MEDS ORDERED: PALONOSETRON HCL 0.25 MG/5 ML VIAL IVPUSH ONE (10:15)
[2022-09-09] MEDS ORDERED: DOXOrubicin HCL 50 MG/25 ML VIAL IV ONE (10:45)
[2022-09-09] MEDS ORDERED: CYCLOPHOSPHAMIDE INJECTION 1,000 MG in SODIUM CHLORIDE 250 ML IVPB ONE (11:00)
[2022-09-09 11:06] LABS: ALBUMIN 3.7 g/dl (3.4-5.0); BLOOD UREA NITROGEN 21.7 mg/dL (7-18)
[2022-09-09 11:09] LABS: BILIRUBIN,DIRECT 0.1 mg/dL (0.0-0.2); CREATININE 0.7 mg/dL (0.55-1.3)
[2022-09-09 11:11] LABS: BILIRUBIN,TOTAL 0.3 mg/dL (0.2-1); TOT PROT 6.8 g/dl (6.4-8.2)
[2022-09-09 18:08] VITALS: BP 149/74; PULSE 71; RESP 20; TEMP 98.5
[2022-09-09] MEDS ORDERED: PORTA CATH FLUSH 10 ML IVPUSH PRN (18:08)
== END 2022-09-09 14:05 | disposition home or self-care (01) ==
LOC: JONCCHEMO 09:02
PROVIDERS: ATTEND Internal Medicine Hematology & Oncology
DX: Z51.11 Encounter for antineoplastic chemotherapy (principal); C50.411 Malignant neoplasm of upper-outer quadrant of right female breast; Z17.0 Estrogen receptor positive status [ER+]
CPT/HCPCS: 36415; 80048; 80076; 85025; 96367; 96375; 96411; 96413; J1453; J2469; J9070

== ENCOUNTER 2022-09-10 11:00 | Day surgery (SDC) | payer OTHER ==
[2022-09-10 15:15] VITALS: BP 174/76; PULSE 72; RESP 20; TEMP 97.6
== END 2022-09-10 12:30 | disposition home or self-care (01) ==
LOC: JONCCHEMO 11:00
PROVIDERS: ATTEND Internal Medicine Hematology & Oncology
PROC: 3E013GC Introduction of Other Therapeutic Substance into Subcutaneous Tissue, Percutaneous Approach (ICD-10-PCS; principal; 2022-09-10)
DX: C50.411 Malignant neoplasm of upper-outer quadrant of right female breast (principal); Z79.84 Long term (current) use of oral hypoglycemic drugs
CPT/HCPCS: 96372; Q5120

== ENCOUNTER 2022-09-30 10:33 | Day surgery (SDC) | payer OTHER ==
[~2022-09-30 10:33] MED LIST changes: +DEXAMETHASONE SODIUM PHOSPHATE 10 MG in SODIUM CHLORIDE 50 ML IVPB ONE; +DOXOrubicin HCL 50 MG/25 ML VIAL IV ONE; +FOSAPREPITANT DIMEGLUMINE 150 MG in SODIUM CHLORIDE 145 ML IVPB ONE; +PALONOSETRON HCL 0.25 MG/5 ML VIAL IVPUSH ONE; -PEGFILGRASTIM-BMEZ 6 MG/0.6 ML SYRINGE SQ ONE
[2022-09-30] MEDS ORDERED: CYCLOPHOSPHAMIDE INJECTION 1,000 MG in SODIUM CHLORIDE 250 ML IVPB ONE (11:00)
[2022-09-30 11:41] LABS: BASO % 1.2 % (0-2.0); HEMATOCRIT 33.9 % (32.4-45.2); HEMOGLOBIN 11.5 GM/dL (10.7-15.3); LYMPH % 17.6 % (8-40); MCH 30.8 pg (25.7-33.7); MCHC 33.9 g/dl (32.0-36.0); MEAN CELL VOLUME 91.1 fl (80-96); MONO % 17.3 % (3.8-10.2); NEUT % 62.9 % (42.8-82.8); PLATELET COUNT 292 10^3/uL (134-434); RBC 3.72 M/mm3 (3.60-5.2); RDW 16.7 % (11.6-15.6)
[2022-09-30 11:58] LABS: CALCIUM 8.4 mg/dL (8.5-10.1)
[2022-09-30 11:59] LABS: ALBUMIN 2.9 g/dl (3.4-5.0); BLOOD UREA NITROGEN 25.9 mg/dL (7-18)
[2022-09-30 12:02] LABS: BILIRUBIN,DIRECT 0.1 mg/dL (0.0-0.2); CREATININE 1.5 mg/dL (0.55-1.3)
[2022-09-30 12:03] LABS: TOT PROT 7.3 g/dl (6.4-8.2)
[2022-09-30 12:04] LABS: BILIRUBIN,TOTAL 0.3 mg/dL (0.2-1)
[2022-09-30 16:55] VITALS: BP 156/78; PULSE 61; RESP 19; TEMP 97.9
[2022-09-30] MEDS ORDERED: PORTA CATH FLUSH 10 ML IVPUSH PRN (16:55)
== END 2022-09-30 15:45 | disposition home or self-care (01) ==
LOC: JONCCHEMO 10:33
PROVIDERS: ATTEND Internal Medicine Hematology & Oncology
DX: Z51.11 Encounter for antineoplastic chemotherapy (principal); C50.411 Malignant neoplasm of upper-outer quadrant of right female breast
CPT/HCPCS: 36415; 80048; 80076; 85025; 96367; 96375; 96411; 96413; J1453; J2469; J9070

== ENCOUNTER 2022-10-01 11:46 | Day surgery (SDC) | payer OTHER ==
[~2022-10-01 11:46] MED LIST changes: -DEXAMETHASONE SODIUM PHOSPHATE 10 MG in SODIUM CHLORIDE 50 ML IVPB ONE; -DOXOrubicin HCL 50 MG/25 ML VIAL IV ONE; -FOSAPREPITANT DIMEGLUMINE 150 MG in SODIUM CHLORIDE 145 ML IVPB ONE; -PALONOSETRON HCL 0.25 MG/5 ML VIAL IVPUSH ONE; +PEGFILGRASTIM-BMEZ 6 MG/0.6 ML SYRINGE SQ ONE
[2022-10-01 17:59] VITALS: BP 174/82; PULSE 65; RESP 18; TEMP 98.7
== END 2022-10-01 12:30 | disposition home or self-care (01) ==
LOC: JONCCHEMO 11:46
PROVIDERS: ATTEND Internal Medicine Hematology & Oncology
PROC: 3E013GC Introduction of Other Therapeutic Substance into Subcutaneous Tissue, Percutaneous Approach (ICD-10-PCS; principal; 2022-10-01)
DX: C50.911 Malignant neoplasm of unspecified site of right female breast (principal); Z76.89 Persons encountering health services in other specified circumstances
CPT/HCPCS: 96372; Q5120

== ENCOUNTER 2022-10-21 10:29 | Day surgery (SDC) | payer OTHER ==
[~2022-10-21 10:29] MED LIST changes: +DEXAMETHASONE SODIUM PHOSPHATE 10 MG, DIPHENHYDRAMINE 25 MG in SODIUM CHLORIDE 100 ML IVPB ONE; +FAMOTIDINE 20 MG/50 ML IVPB 20 MG/50 ML MG IVPB ONE; +PACLITAXEL 132 MG in SODIUM CHLORIDE 250 ML IVPB ONE; -PEGFILGRASTIM-BMEZ 6 MG/0.6 ML SYRINGE SQ ONE
[2022-10-21 10:56] LABS: BASO % 1.9 % (0-2.0); EOS % 1.1 % (0-4.5); HEMATOCRIT 30.9 % (32.4-45.2); HEMOGLOBIN 10.6 GM/dL (10.7-15.3); LYMPH % 18.2 % (8-40); MCH 31.4 pg (25.7-33.7); MCHC 34.4 g/dl (32.0-36.0); MEAN CELL VOLUME 91.2 fl (80-96); MEAN PLT VOLUME 8.5 fl (7.5-11.1); MONO % 19.9 % (3.8-10.2); NEUT % 58.9 % (42.8-82.8); PLATELET COUNT 265 10^3/uL (134-434); RBC 3.39 M/mm3 (3.60-5.2); RDW 16.7 % (11.6-15.6); WHITE BLOOD COUNT 4.7 K/mm3 (4.0-10.0)
[2022-10-21 11:22] LABS: CHLORIDE 110 mmol/L (98-107); POTASSIUM 4.5 mmol/L (3.5-5.1); SODIUM 144 mmol/L (136-145)
[2022-10-21 11:26] LABS: ANION GAP 5 MMOL/L (8-16); BLOOD UREA NITROGEN 21.9 mg/dL (7-18); CALCIUM 9.3 mg/dL (8.5-10.1); CO2 29 mmol/L (21-32); GLUCOSE,RANDOM 221 mg/dL (74-106)
[2022-10-21 11:27] LABS: ALBUMIN 3.5 g/dl (3.4-5.0)
[2022-10-21 11:29] LABS: BILIRUBIN,DIRECT < 0.1 mg/dL (0.0-0.2)
[2022-10-21 11:30] LABS: CREATININE 0.9 mg/dL (0.55-1.3); SGOT/AST 14 U/L (15-37); SGPT/ALT 20 U/L (13-61)
[2022-10-21 11:31] LABS: BILIRUBIN,TOTAL 0.3 mg/dL (0.2-1); TOT PROT 6.8 g/dl (6.4-8.2)
[2022-10-21 11:32] LABS: ALK PHOS 124 U/L (45-117)
[2022-10-21 15:57] VITALS: BP 129/69; PULSE 69; RESP 19; TEMP 98.2
[2022-10-21] MEDS ORDERED: PORTA CATH FLUSH 10 ML IVPUSH PRN (15:57)
== END 2022-10-21 16:00 | disposition home or self-care (01) ==
LOC: JONCCHEMO 10:29 → J7W 10:37 → JONCCHEMO 16:00
PROVIDERS: ATTEND Internal Medicine Hematology & Oncology
DX: Z51.11 Encounter for antineoplastic chemotherapy (principal); C50.411 Malignant neoplasm of upper-outer quadrant of right female breast
CPT/HCPCS: 36415; 80048; 80076; 85025; 96367; 96413

== ENCOUNTER 2022-10-28 09:51 | Day surgery (SDC) | payer OTHER ==
[2022-10-28] MEDS ORDERED: FAMOTIDINE 20 MG/50 ML IVPB 20 MG/50 ML MG IVPB ONE (10:00)
[2022-10-28] MEDS ORDERED: DEXAMETHASONE SODIUM PHOSPHATE 10 MG, DIPHENHYDRAMINE 25 MG in SODIUM CHLORIDE 100 ML IVPB ONE (10:00)
[2022-10-28] MEDS ORDERED: PACLITAXEL 132 MG in SODIUM CHLORIDE 250 ML IVPB ONE (10:30)
[2022-10-28 10:48] LABS: BASO % 1.3 % (0-2.0); EOS % 8.6 % (0-4.5); HEMATOCRIT 31.9 % (32.4-45.2); LYMPH % 15.6 % (8-40); MCH 31.5 pg (25.7-33.7); MCHC 34.6 g/dl (32.0-36.0); MEAN CELL VOLUME 91.1 fl (80-96); MEAN PLT VOLUME 10.5 fl (7.5-11.1); MONO % 8.7 % (3.8-10.2); NEUT % 65.8 % (42.8-82.8); PLATELET COUNT 246 10^3/uL (134-434); RBC 3.51 M/mm3 (3.60-5.2); RDW 16.4 % (11.6-15.6); WHITE BLOOD COUNT 5.1 K/mm3 (4.0-10.0)
[2022-10-28 11:12] LABS: CHLORIDE 104 mmol/L (98-107); POTASSIUM 4.5 mmol/L (3.5-5.1); SODIUM 138 mmol/L (136-145)
[2022-10-28 11:14] LABS: ALBUMIN 3.6 g/dl (3.4-5.0); ANION GAP 6 MMOL/L (8-16); BLOOD UREA NITROGEN 18.3 mg/dL (7-18); CALCIUM 9.2 mg/dL (8.5-10.1); CO2 28 mmol/L (21-32); GLUCOSE,RANDOM 347 mg/dL (74-106)
[2022-10-28 11:17] LABS: BILIRUBIN,DIRECT < 0.1 mg/dL (0.0-0.2); SGOT/AST 15 U/L (15-37); SGPT/ALT 28 U/L (13-61)
[2022-10-28 11:19] LABS: BILIRUBIN,TOTAL 0.3 mg/dL (0.2-1); TOT PROT 6.8 g/dl (6.4-8.2)
[2022-10-28 11:20] LABS: ALK PHOS 104 U/L (45-117)
[2022-10-28] MEDS ORDERED: INSULIN (NOVOLOG) ASPART 100 UNITS/ML 10ML VIAL SQ ONE (12:15)
[2022-10-28 16:11] VITALS: RESP 20; TEMP 97.8
[2022-10-28 16:19] VITALS: BP 184/97; PULSE 82
[2022-10-28] MEDS ORDERED: PORTA CATH FLUSH 10 ML IVPUSH PRN (16:19)
== END 2022-10-28 14:50 | disposition home or self-care (01) ==
LOC: JONCCHEMO 09:51 → J7W 09:51 → JONCCHEMO 14:50
PROVIDERS: ATTEND Internal Medicine Hematology & Oncology
DX: C50.411 Malignant neoplasm of upper-outer quadrant of right female breast (principal); Z17.0 Estrogen receptor positive status [ER+]
CPT/HCPCS: 36415; 80048; 80076; 85025; 96367; 96413

== ENCOUNTER 2022-11-04 10:41 | Day surgery (SDC) | payer OTHER ==
[2022-11-04 11:14] LABS: BASO % 2.2 % (0-2.0); EOS % 13.2 % (0-4.5); HEMOGLOBIN 11.3 GM/dL (10.7-15.3); LYMPH % 19.4 % (8-40); MCH 31.6 pg (25.7-33.7); MCHC 34.1 g/dl (32.0-36.0); MEAN CELL VOLUME 92.8 fl (80-96); MONO % 8.8 % (3.8-10.2); NEUT % 56.4 % (42.8-82.8); PLATELET COUNT 230 10^3/uL (134-434); RBC 3.56 M/mm3 (3.60-5.2); RDW 16.3 % (11.6-15.6); WHITE BLOOD COUNT 4.6 K/mm3 (4.0-10.0)
[2022-11-04 11:31] LABS: POTASSIUM 4.6 mmol/L (3.5-5.1)
[2022-11-04 11:34] LABS: ALBUMIN 3.5 g/dl (3.4-5.0); BLOOD UREA NITROGEN 22.3 mg/dL (7-18); CALCIUM 9.2 mg/dL (8.5-10.1)
[2022-11-04 11:38] LABS: BILIRUBIN,DIRECT 0.1 mg/dL (0.0-0.2)
[2022-11-04 11:39] LABS: BILIRUBIN,TOTAL 0.4 mg/dL (0.2-1); TOT PROT 6.7 g/dl (6.4-8.2)
[2022-11-04 16:19] VITALS: BP 135/73; PULSE 77; RESP 18; TEMP 98.6
[2022-11-04] MEDS ORDERED: PORTA CATH FLUSH 10 ML IVPUSH PRN (16:27)
== END 2022-11-04 14:35 | disposition home or self-care (01) ==
LOC: JONCCHEMO 10:41 → J7W 10:41 → JONCCHEMO 14:35
PROVIDERS: ATTEND Internal Medicine Hematology & Oncology
DX: Z51.11 Encounter for antineoplastic chemotherapy (principal); C50.411 Malignant neoplasm of upper-outer quadrant of right female breast
CPT/HCPCS: 36415; 80048; 80076; 85025; 96367; 96413

== ENCOUNTER 2022-11-11 09:17 | Day surgery (SDC) | payer OTHER ==
[2022-11-11] MEDS ORDERED: DEXAMETHASONE SODIUM PHOSPHATE 10 MG, DIPHENHYDRAMINE 25 MG in SODIUM CHLORIDE 100 ML IVPB ONE (09:30)
[2022-11-11] MEDS ORDERED: FAMOTIDINE 20 MG/50 ML IVPB 20 MG/50 ML MG IVPB ONE ×3 (09:30→11:45)
[2022-11-11] MEDS ORDERED: PACLITAXEL 132 MG in SODIUM CHLORIDE 250 ML IVPB ONE ×2 (10:00→11:00)
[2022-11-11] MEDS ORDERED: DEXAMETHASONE SODIUM PHOSPHATE 4 MG, DIPHENHYDRAMINE 25 MG in SODIUM CHLORIDE 100 ML IVPB ONE (10:30)
[2022-11-11 10:33] LABS: EOS % 9.2 % (0-4.5); HEMATOCRIT 30.8 % (32.4-45.2); HEMOGLOBIN 10.6 GM/dL (10.7-15.3); LYMPH % 22.7 % (8-40); MCH 32.3 pg (25.7-33.7); MCHC 34.3 g/dl (32.0-36.0); MEAN CELL VOLUME 94.1 fl (80-96); MEAN PLT VOLUME 9.7 fl (7.5-11.1); MONO % 12.5 % (3.8-10.2); NEUT % 52.6 % (42.8-82.8); PLATELET COUNT 199 10^3/uL (134-434); RBC 3.27 M/mm3 (3.60-5.2); RDW 15.9 % (11.6-15.6); WHITE BLOOD COUNT 3.2 K/mm3 (4.0-10.0)
[2022-11-11 10:59] LABS: POTASSIUM 4.2 mmol/L (3.5-5.1)
[2022-11-11 11:01] LABS: CALCIUM 8.7 mg/dL (8.5-10.1)
[2022-11-11 11:02] LABS: ALBUMIN 3.4 g/dl (3.4-5.0); BLOOD UREA NITROGEN 21.6 mg/dL (7-18)
[2022-11-11 11:04] LABS: BILIRUBIN,DIRECT 0.1 mg/dL (0.0-0.2)
[2022-11-11 11:05] LABS: CREATININE 0.9 mg/dL (0.55-1.3)
[2022-11-11 11:06] LABS: BILIRUBIN,TOTAL 0.3 mg/dL (0.2-1); TOT PROT 6.7 g/dl (6.4-8.2)
[2022-11-11 17:20] VITALS: BP 123/60; PULSE 74; RESP 18; TEMP 98.5
[2022-11-11] MEDS ORDERED: PORTA CATH FLUSH 10 ML IVPUSH PRN (17:29)
== END 2022-11-11 14:20 | disposition home or self-care (01) ==
LOC: JONCCHEMO 09:17 → J7W 09:19 → JONCCHEMO 14:20
PROVIDERS: ATTEND Internal Medicine Hematology & Oncology
DX: Z51.11 Encounter for antineoplastic chemotherapy (principal); C50.411 Malignant neoplasm of upper-outer quadrant of right female breast; Z17.0 Estrogen receptor positive status [ER+]
CPT/HCPCS: 36415; 80048; 80076; 85025; 96367; 96413

== ENCOUNTER 2022-11-18 09:29 | Day surgery (SDC) | payer OTHER ==
[2022-11-18 09:53] LABS: BASO % 2.4 % (0-2.0); EOS % 8.7 % (0-4.5); HEMATOCRIT 33.8 % (32.4-45.2); HEMOGLOBIN 11.4 GM/dL (10.7-15.3); LYMPH % 25.9 % (8-40); MCH 32.3 pg (25.7-33.7); MCHC 33.8 g/dl (32.0-36.0); MEAN CELL VOLUME 95.6 fl (80-96); MEAN PLT VOLUME 9.1 fl (7.5-11.1); MONO % 14.3 % (3.8-10.2); NEUT % 48.7 % (42.8-82.8); PLATELET COUNT 234 10^3/uL (134-434); RBC 3.54 M/mm3 (3.60-5.2); RDW 15.2 % (11.6-15.6); WHITE BLOOD COUNT 2.6 K/mm3 (4.0-10.0)
[2022-11-18] MEDS ORDERED: FAMOTIDINE 20 MG/50 ML IVPB 20 MG/50 ML MG IVPB ONE (10:00)
[2022-11-18] MEDS ORDERED: DEXAMETHASONE SODIUM PHOSPHATE 4 MG, DIPHENHYDRAMINE 25 MG in SODIUM CHLORIDE 100 ML IVPB ONE (10:00)
[2022-11-18 10:19] LABS: POTASSIUM 4.6 mmol/L (3.5-5.1)
[2022-11-18 10:21] LABS: BLOOD UREA NITROGEN 20.5 mg/dL (7-18)
[2022-11-18 10:22] LABS: ALBUMIN 3.7 g/dl (3.4-5.0); CALCIUM 9.7 mg/dL (8.5-10.1)
[2022-11-18 10:25] LABS: BILIRUBIN,DIRECT 0.1 mg/dL (0.0-0.2)
[2022-11-18 10:26] LABS: CREATININE 0.9 mg/dL (0.55-1.3)
[2022-11-18 10:27] LABS: BILIRUBIN,TOTAL 0.4 mg/dL (0.2-1)
[2022-11-18 10:28] LABS: TOT PROT 7.1 g/dl (6.4-8.2)
[2022-11-18] MEDS ORDERED: PACLITAXEL 132 MG in SODIUM CHLORIDE 250 ML IVPB ONE (10:30)
[2022-11-18 16:47] VITALS: TEMP 98.4
[2022-11-18 16:53] VITALS: BP 176/97; PULSE 77; RESP 20
[2022-11-18] MEDS ORDERED: PORTA CATH FLUSH 10 ML IVPUSH PRN (16:53)
== END 2022-11-18 13:10 | disposition home or self-care (01) ==
LOC: JONCCHEMO 09:29 → J7W 09:30 → JONCCHEMO 13:10
PROVIDERS: ATTEND Internal Medicine Hematology & Oncology
DX: Z51.11 Encounter for antineoplastic chemotherapy (principal); C50.411 Malignant neoplasm of upper-outer quadrant of right female breast
CPT/HCPCS: 36415; 80048; 80076; 85025; 96367; 96413

== ENCOUNTER 2022-11-25 09:09 | Day surgery (SDC) | payer OTHER ==
[2022-11-25 09:47] LABS: CHLORIDE 107 mmol/L (98-107); POTASSIUM 4.7 mmol/L (3.5-5.1); SODIUM 141 mmol/L (136-145)
[2022-11-25 09:49] LABS: CALCIUM 9.4 mg/dL (8.5-10.1)
[2022-11-25 09:50] LABS: ALBUMIN 3.6 g/dl (3.4-5.0); ANION GAP 8 MMOL/L (8-16); CO2 25 mmol/L (21-32); GLUCOSE,RANDOM 199 mg/dL (74-106)
[2022-11-25 09:51] LABS: HEMATOCRIT 32.9 % (32.4-45.2); HEMOGLOBIN 11.3 GM/dL (10.7-15.3); MCH 32.3 pg (25.7-33.7); MCHC 34.3 g/dl (32.0-36.0); MEAN CELL VOLUME 94.1 fl (80-96); MEAN PLT VOLUME 9.1 fl (7.5-11.1); PLATELET COUNT 268 10^3/uL (134-434); RBC 3.49 M/mm3 (3.60-5.2); RDW 14.6 % (11.6-15.6)
[2022-11-25 09:52] LABS: BILIRUBIN,DIRECT < 0.1 mg/dL (0.0-0.2); SGPT/ALT 20 U/L (13-61)
[2022-11-25 09:53] LABS: CREATININE 0.8 mg/dL (0.55-1.3); SGOT/AST 15 U/L (15-37)
[2022-11-25 09:54] LABS: BILIRUBIN,TOTAL 0.3 mg/dL (0.2-1)
[2022-11-25 09:55] LABS: ALK PHOS 80 U/L (45-117)
[2022-11-25] MEDS ORDERED: FAMOTIDINE 20 MG/50 ML IVPB 20 MG/50 ML MG IVPB ONE (10:00)
[2022-11-25] MEDS ORDERED: DEXAMETHASONE SODIUM PHOSPHATE 4 MG, DIPHENHYDRAMINE 25 MG in SODIUM CHLORIDE 100 ML IVPB ONE (10:00)
[2022-11-25 10:23] LABS: ANISOCYTOSIS 0; HELMET CELLS 0; HOWELL-JOLLY BODIES 0; MACROCYTOSIS 0; OVALOCYTE 0; ROULEAU 0; SICKELED CELLS 0; TARGET CELLS 0; TEAR DROP CELLS 0; TOXIC GRANULATION 0
[2022-11-25] MEDS ORDERED: PACLITAXEL 132 MG in SODIUM CHLORIDE 250 ML IVPB ONE (10:30)
[2022-11-25 16:20] VITALS: BP 147/88; PULSE 70; RESP 20; TEMP 97.9
[2022-11-25] MEDS ORDERED: PORTA CATH FLUSH 10 ML IVPUSH PRN (16:20)
== END 2022-11-25 12:00 | disposition home or self-care (01) ==
LOC: JONCCHEMO 09:09 → J7W 09:11 → JONCCHEMO 12:00
PROVIDERS: ATTEND Internal Medicine Hematology & Oncology
DX: Z53.8 Procedure and treatment not carried out for other reasons (principal)
CPT/HCPCS: 36415; 80048; 80076; 85025; 96365

== ENCOUNTER 2022-12-02 09:51 | Day surgery (SDC) | payer OTHER ==
[2022-12-02] MEDS ORDERED: DEXAMETHASONE SODIUM PHOSPHATE 4 MG, DIPHENHYDRAMINE 25 MG in SODIUM CHLORIDE 100 ML IVPB ONE (10:00)
[2022-12-02] MEDS ORDERED: FAMOTIDINE 20 MG/50 ML IVPB 20 MG/50 ML MG IVPB ONE (10:00)
[2022-12-02] MEDS ORDERED: PACLITAXEL 132 MG in SODIUM CHLORIDE 250 ML IVPB ONE (10:30)
[2022-12-02 10:34] LABS: BASO % 2.9 % (0-2.0); EOS % 1.7 % (0-4.5); HEMATOCRIT 35.9 % (32.4-45.2); LYMPH % 30.9 % (8-40); MCH 31.8 pg (25.7-33.7); MCHC 33.5 g/dl (32.0-36.0); MEAN CELL VOLUME 94.9 fl (80-96); MEAN PLT VOLUME 9.3 fl (7.5-11.1); MONO % 15.8 % (3.8-10.2); NEUT % 48.7 % (42.8-82.8); PLATELET COUNT 326 10^3/uL (134-434); RBC 3.78 M/mm3 (3.60-5.2); RDW 13.8 % (11.6-15.6); WHITE BLOOD COUNT 3.1 K/mm3 (4.0-10.0)
[2022-12-02 11:01] LABS: POTASSIUM 4.5 mmol/L (3.5-5.1)
[2022-12-02 11:03] LABS: CALCIUM 9.4 mg/dL (8.5-10.1)
[2022-12-02 11:04] LABS: ALBUMIN 3.9 g/dl (3.4-5.0); BLOOD UREA NITROGEN 26.1 mg/dL (7-18)
[2022-12-02 11:06] LABS: BILIRUBIN,DIRECT 0.1 mg/dL (0.0-0.2)
[2022-12-02 11:08] LABS: BILIRUBIN,TOTAL 0.3 mg/dL (0.2-1); TOT PROT 7.4 g/dl (6.4-8.2)
[2022-12-02 17:09] VITALS: RESP 18; TEMP 98.4
[2022-12-02 17:17] VITALS: BP 200/114; PULSE 73
[2022-12-02] MEDS ORDERED: PORTA CATH FLUSH 10 ML IVPUSH PRN (17:17)
== END 2022-12-02 14:50 | disposition home or self-care (01) ==
LOC: JONCCHEMO 09:51 → J7W 09:52 → JONCCHEMO 14:50
PROVIDERS: ATTEND Internal Medicine Hematology & Oncology
DX: Z51.11 Encounter for antineoplastic chemotherapy (principal); C50.411 Malignant neoplasm of upper-outer quadrant of right female breast
CPT/HCPCS: 36415; 80048; 80076; 85025; 96367; 96413

== ENCOUNTER 2022-12-09 09:37 | Day surgery (SDC) | payer OTHER ==
[2022-12-09 09:58] LABS: HEMATOCRIT 36.1 % (32.4-45.2); HEMOGLOBIN 12.1 GM/dL (10.7-15.3); MCH 31.1 pg (25.7-33.7); MCHC 33.5 g/dl (32.0-36.0); MEAN PLT VOLUME 8.8 fl (7.5-11.1); PLATELET COUNT 246 10^3/uL (134-434); RBC 3.88 M/mm3 (3.60-5.2); RDW 13.8 % (11.6-15.6)
[2022-12-09] MEDS ORDERED: FAMOTIDINE 20 MG/50 ML IVPB 20 MG/50 ML MG IVPB ONE (10:00)
[2022-12-09] MEDS ORDERED: DEXAMETHASONE SODIUM PHOSPHATE 4 MG, DIPHENHYDRAMINE 25 MG in SODIUM CHLORIDE 100 ML IVPB ONE (10:00)
[2022-12-09 10:25] LABS: CHLORIDE 108 mmol/L (98-107); POTASSIUM 4.4 mmol/L (3.5-5.1); SODIUM 141 mmol/L (136-145)
[2022-12-09 10:27] LABS: ALBUMIN 3.7 g/dl (3.4-5.0); ANION GAP 6 MMOL/L (8-16); BLOOD UREA NITROGEN 26.6 mg/dL (7-18); CALCIUM 9.4 mg/dL (8.5-10.1); CO2 27 mmol/L (21-32); GLUCOSE,RANDOM 190 mg/dL (74-106)
[2022-12-09 10:29] LABS: BILIRUBIN,DIRECT < 0.1 mg/dL (0.0-0.2); SGPT/ALT 24 U/L (13-61)
[2022-12-09] MEDS ORDERED: PACLITAXEL 132 MG in SODIUM CHLORIDE 250 ML IVPB ONE (10:30)
[2022-12-09 10:31] LABS: SGOT/AST 12 U/L (15-37)
[2022-12-09 10:32] LABS: BILIRUBIN,TOTAL 0.2 mg/dL (0.2-1); TOT PROT 6.8 g/dl (6.4-8.2)
[2022-12-09 10:33] LABS: ALK PHOS 84 U/L (45-117)
[2022-12-09 10:38] LABS: ANISOCYTOSIS 1+; MACROCYTOSIS 0; TEAR DROP CELLS 1+
[2022-12-09 17:50] VITALS: BP 148/78; PULSE 71; RESP 18; TEMP 98.1
[2022-12-09] MEDS ORDERED: PORTA CATH FLUSH 10 ML IVPUSH PRN (17:50)
== END 2022-12-09 15:00 | disposition home or self-care (01) ==
LOC: JONCCHEMO 09:37 → J7W 09:38 → JONCCHEMO 15:00
PROVIDERS: ATTEND Internal Medicine Hematology & Oncology
DX: Z51.11 Encounter for antineoplastic chemotherapy (principal); C50.911 Malignant neoplasm of unspecified site of right female breast
CPT/HCPCS: 36415; 80048; 80076; 85025; 96367; 96413

== ENCOUNTER 2022-12-15 09:17 | Day surgery (SDC) | payer OTHER ==
[2022-12-15] MEDS ORDERED: FAMOTIDINE 20 MG/50 ML IVPB 20 MG/50 ML MG IVPB ONE (09:30)
[2022-12-15] MEDS ORDERED: DEXAMETHASONE SODIUM PHOSPHATE 4 MG, DIPHENHYDRAMINE 25 MG in SODIUM CHLORIDE 100 ML IVPB ONE (09:30)
[2022-12-15] MEDS ORDERED: PACLITAXEL 132 MG in SODIUM CHLORIDE 250 ML IVPB ONE (10:00)
[2022-12-15 10:57] LABS: BASO % 1.9 % (0-2.0); EOS % 5.7 % (0-4.5); HEMOGLOBIN 11.8 GM/dL (10.7-15.3); LYMPH % 34.6 % (8-40); MCH 31.4 pg (25.7-33.7); MCHC 32.8 g/dl (32.0-36.0); MEAN CELL VOLUME 95.7 fl (80-96); MEAN PLT VOLUME 10.2 fl (7.5-11.1); MONO % 7.5 % (3.8-10.2); NEUT % 50.3 % (42.8-82.8); PLATELET COUNT 236 10^3/uL (134-434); RBC 3.76 M/mm3 (3.60-5.2); RDW 13.8 % (11.6-15.6); WHITE BLOOD COUNT 3.5 K/mm3 (4.0-10.0)
[2022-12-15 11:16] LABS: CHLORIDE 110 mmol/L (98-107); POTASSIUM 3.9 mmol/L (3.5-5.1); SODIUM 143 mmol/L (136-145)
[2022-12-15 11:20] LABS: CALCIUM 9.3 mg/dL (8.5-10.1)
[2022-12-15 11:21] LABS: ALBUMIN 3.6 g/dl (3.4-5.0); ANION GAP 6 MMOL/L (8-16); BLOOD UREA NITROGEN 23.2 mg/dL (7-18); CO2 27 mmol/L (21-32); GLUCOSE,RANDOM 193 mg/dL (74-106)
[2022-12-15 11:24] LABS: BILIRUBIN,DIRECT < 0.1 mg/dL (0.0-0.2); SGOT/AST 13 U/L (15-37); SGPT/ALT 25 U/L (13-61)
[2022-12-15 11:26] LABS: BILIRUBIN,TOTAL 0.3 mg/dL (0.2-1); TOT PROT 6.9 g/dl (6.4-8.2)
[2022-12-15 11:27] LABS: ALK PHOS 80 U/L (45-117)
[2022-12-15 16:02] VITALS: BP 144/80; PULSE 75; RESP 20; TEMP 98.3
[2022-12-15] MEDS ORDERED: PORTA CATH FLUSH 10 ML IVPUSH PRN (16:02)
== END 2022-12-15 14:00 | disposition home or self-care (01) ==
LOC: JONCCHEMO 09:17 → J7W 09:18 → JONCCHEMO 14:00
PROVIDERS: ATTEND Internal Medicine Hematology & Oncology
DX: Z12.11 Encounter for screening for malignant neoplasm of colon (principal); C50.411 Malignant neoplasm of upper-outer quadrant of right female breast; Z17.0 Estrogen receptor positive status [ER+]
CPT/HCPCS: 36415; 80048; 80076; 85025; 96367; 96413

== ENCOUNTER 2022-12-22 09:17 | Day surgery (SDC) | payer OTHER ==
[2022-12-22] MEDS ORDERED: DEXAMETHASONE SODIUM PHOSPHATE 4 MG, DIPHENHYDRAMINE 25 MG in SODIUM CHLORIDE 100 ML IVPB ONE (09:30)
[2022-12-22] MEDS ORDERED: FAMOTIDINE 20 MG/50 ML IVPB 20 MG/50 ML MG IVPB ONE (09:30)
[2022-12-22] MEDS ORDERED: PACLITAXEL 132 MG in SODIUM CHLORIDE 250 ML IVPB ONE (10:00)
[2022-12-22 10:16] LABS: BASO % 2.2 % (0-2.0); EOS % 3.2 % (0-4.5); HEMATOCRIT 32.7 % (32.4-45.2); HEMOGLOBIN 11.3 GM/dL (10.7-15.3); LYMPH % 37.6 % (8-40); MCHC 34.6 g/dl (32.0-36.0); MEAN CELL VOLUME 95.3 fl (80-96); MEAN PLT VOLUME 9.6 fl (7.5-11.1); MONO % 13.1 % (3.8-10.2); NEUT % 43.9 % (42.8-82.8); PLATELET COUNT 207 10^3/uL (134-434); RBC 3.43 M/mm3 (3.60-5.2); RDW 13.7 % (11.6-15.6); WHITE BLOOD COUNT 3.2 K/mm3 (4.0-10.0)
[2022-12-22 10:35] LABS: CHLORIDE 110 mmol/L (98-107); POTASSIUM 4.1 mmol/L (3.5-5.1); SODIUM 143 mmol/L (136-145)
[2022-12-22 10:37] LABS: CALCIUM 9.2 mg/dL (8.5-10.1)
[2022-12-22 10:38] LABS: ALBUMIN 3.4 g/dl (3.4-5.0); ANION GAP 7 MMOL/L (8-16); CO2 25 mmol/L (21-32); GLUCOSE,RANDOM 221 mg/dL (74-106)
[2022-12-22 10:41] LABS: BILIRUBIN,DIRECT < 0.1 mg/dL (0.0-0.2); CREATININE 0.8 mg/dL (0.55-1.3); SGOT/AST 15 U/L (15-37); SGPT/ALT 26 U/L (13-61)
[2022-12-22 10:43] LABS: BILIRUBIN,TOTAL 0.2 mg/dL (0.2-1); TOT PROT 6.5 g/dl (6.4-8.2)
[2022-12-22 10:44] LABS: ALK PHOS 84 U/L (45-117)
[2022-12-22 16:20] VITALS: BP 143/73; PULSE 78; RESP 18; TEMP 98.4
[2022-12-22] MEDS ORDERED: PORTA CATH FLUSH 10 ML IVPUSH PRN (16:20)
== END 2022-12-22 14:30 | disposition home or self-care (01) ==
LOC: JONCCHEMO 09:17 → J7W 09:18 → JONCCHEMO 14:30
PROVIDERS: ATTEND Internal Medicine Hematology & Oncology
PROC: 3E04305 Introduction of Other Antineoplastic into Central Vein, Percutaneous Approach (ICD-10-PCS; principal; 2022-12-22)
PROC: 3E043GC Introduction of Other Therapeutic Substance into Central Vein, Percutaneous Approach (ICD-10-PCS; 2022-12-22)
DX: Z51.11 Encounter for antineoplastic chemotherapy (principal); C50.411 Malignant neoplasm of upper-outer quadrant of right female breast; Z17.0 Estrogen receptor positive status [ER+]
CPT/HCPCS: 36415; 80048; 80076; 85025; 96367; 96413

== ENCOUNTER 2022-12-29 12:02 | Day surgery (SDC) | payer OTHER ==
[~2022-12-29 12:02] MED LIST changes: -DEXAMETHASONE SODIUM PHOSPHATE 10 MG, DIPHENHYDRAMINE 25 MG in SODIUM CHLORIDE 100 ML IVPB ONE; +DEXAMETHASONE SODIUM PHOSPHATE 4 MG, DIPHENHYDRAMINE 25 MG in SODIUM CHLORIDE 100 ML IVPB ONE
[2022-12-29 12:48] LABS: HEMATOCRIT 34.8 % (32.4-45.2); HEMOGLOBIN 11.7 GM/dL (10.7-15.3); MCH 31.5 pg (25.7-33.7); MCHC 33.5 g/dl (32.0-36.0); MEAN CELL VOLUME 94.1 fl (80-96); MEAN PLT VOLUME 9.5 fl (7.5-11.1); PLATELET COUNT 272 10^3/uL (134-434); RDW 13.6 % (11.6-15.6)
[2022-12-29 13:08] LABS: POTASSIUM 4.1 mmol/L (3.5-5.1)
[2022-12-29 13:10] LABS: CALCIUM 9.7 mg/dL (8.5-10.1)
[2022-12-29 13:11] LABS: ALBUMIN 3.6 g/dl (3.4-5.0)
[2022-12-29 13:13] LABS: BILIRUBIN,DIRECT 0.1 mg/dL (0.0-0.2)
[2022-12-29 13:14] LABS: CREATININE 1.2 mg/dL (0.55-1.3)
[2022-12-29 13:15] LABS: BILIRUBIN,TOTAL 0.2 mg/dL (0.2-1)
[2022-12-29 13:38] LABS: ANISOCYTOSIS 0; MACROCYTOSIS 0
[2022-12-29 17:02] VITALS: RESP 18; TEMP 98.1
[2022-12-29 17:06] VITALS: BP 182/99; PULSE 76
[2022-12-29] MEDS ORDERED: PORTA CATH FLUSH 10 ML IVPUSH PRN (17:06)
== END 2022-12-29 16:55 | disposition home or self-care (01) ==
LOC: JONCCHEMO 12:02 → J7W 12:03 → JONCCHEMO 16:55
PROVIDERS: ATTEND Internal Medicine Hematology & Oncology
PROC: 3E04305 Introduction of Other Antineoplastic into Central Vein, Percutaneous Approach (ICD-10-PCS; principal; 2022-12-29)
PROC: 3E043GC Introduction of Other Therapeutic Substance into Central Vein, Percutaneous Approach (ICD-10-PCS; 2022-12-29)
DX: Z51.11 Encounter for antineoplastic chemotherapy (principal); C50.411 Malignant neoplasm of upper-outer quadrant of right female breast; Z17.0 Estrogen receptor positive status [ER+]
CPT/HCPCS: 36415; 80048; 80076; 85025; 96367; 96413

== ENCOUNTER 2023-01-05 10:03 | Day surgery (SDC) | payer OTHER ==
[2023-01-05 11:16] LABS: BASO % 1.4 % (0-2.0); EOS % 1.8 % (0-4.5); HEMOGLOBIN 11.8 GM/dL (10.7-15.3); LYMPH % 25.5 % (8-40); MCH 31.7 pg (25.7-33.7); MCHC 33.9 g/dl (32.0-36.0); MEAN CELL VOLUME 93.5 fl (80-96); MEAN PLT VOLUME 9.8 fl (7.5-11.1); MONO % 11.3 % (3.8-10.2); PLATELET COUNT 244 10^3/uL (134-434); RBC 3.74 M/mm3 (3.60-5.2); RDW 14.3 % (11.6-15.6); WHITE BLOOD COUNT 4.9 K/mm3 (4.0-10.0)
[2023-01-05 11:32] LABS: CHLORIDE 105 mmol/L (98-107); POTASSIUM 4.7 mmol/L (3.5-5.1); SODIUM 137 mmol/L (136-145)
[2023-01-05 11:35] LABS: ALBUMIN 3.4 g/dl (3.4-5.0); ANION GAP 6 MMOL/L (8-16); CO2 26 mmol/L (21-32); GLUCOSE,RANDOM 311 mg/dL (74-106)
[2023-01-05 11:37] LABS: BILIRUBIN,DIRECT < 0.1 mg/dL (0.0-0.2)
[2023-01-05 11:38] LABS: SGOT/AST 14 U/L (15-37); SGPT/ALT 27 U/L (13-61)
[2023-01-05 11:39] LABS: BILIRUBIN,TOTAL 0.1 mg/dL (0.2-1); TOT PROT 6.8 g/dl (6.4-8.2)
[2023-01-05 11:41] LABS: ALK PHOS 87 U/L (45-117)
[2023-01-05 15:52] VITALS: BP 125/77; PULSE 74; RESP 18; TEMP 97.8
[2023-01-05] MEDS ORDERED: PORTA CATH FLUSH 10 ML IVPUSH PRN (15:52)
== END 2023-01-05 14:20 | disposition home or self-care (01) ==
LOC: JONCCHEMO 10:03 → J7W 10:04 → JONCCHEMO 14:20
PROVIDERS: ATTEND Internal Medicine Hematology & Oncology
DX: Z51.11 Encounter for antineoplastic chemotherapy (principal); C50.911 Malignant neoplasm of unspecified site of right female breast
CPT/HCPCS: 36415; 80048; 80076; 85025; 96367; 96413

== ENCOUNTER 2023-01-17 09:00 | Inpatient (IN) | payer OTHER ==
[2023-01-17] MEDS ORDERED: PIPERACILLIN/TAZOB 4.5 GM 4.5 GM in DEXTROSE 5%-WATER 100 ML IVPB ONE (09:18)
[2023-01-17] MEDS ORDERED: VANCOMYCIN 1,000 MG in DEXTROSE 5%-WATER - 250 ML IVPB ONE (09:18)
[2023-01-17] MEDS ORDERED: AMIODARONE IN DEXTROSE,ISO-OSM 150 MG/100 ML BAG ONE (09:23)
[2023-01-17] MEDS ORDERED: AMIODARONE IN DEXTROSE,ISO-OSM 360 MG/200 ML BAG ONE (09:24)
[2023-01-17] MEDS ORDERED: AMIODARONE HCL INJECTION 150 MG in DEXTROSE 5%-WATER - 100 ML IVPB ONE ×2 (09:27→10:57)
[2023-01-17] MEDS ORDERED: SODIUM CHLORIDE 1,000 ML IV STA ×3 (09:28→15:50)
[2023-01-17 10:09] LABS: MAGNESIUM 2.5 mg/dL (1.8-2.4)
[2023-01-17 10:13] LABS: EPI CELLS 9 /uL (0-25.1); HYALINE CASTS 1 /uL (0-3.1); URINE APPEARANCE CLEAR; URINE BACTERIA 271 /uL (0-1359); URINE BILIRUBIN NEGATIVE (NEGATIVE); URINE COLOR YELLOW; URINE GLUCOSE (UA) 3+ (NEGATIVE); URINE KETONE NEGATIVE (NEGATIVE); URINE LEUK ESTERASE NEGATIVE (NEGATIVE); URINE NITRITE NEGATIVE (NEGATIVE); URINE PROTEIN 4+ (NEGATIVE); URINE UROBILINOGEN 0.2 mg/dL (0.2-1.0)
[2023-01-17 10:22] LABS: URINE RBC 15.9 /uL (0-23.9); URINE WBC 316.5 /uL (0-25.8)
[2023-01-17 10:49] LABS: HEMATOCRIT 40.1 % (32.4-45.2); HEMOGLOBIN 12.7 GM/dL (10.7-15.3); MCH 30.9 pg (25.7-33.7); MCHC 31.7 g/dl (32.0-36.0); MEAN CELL VOLUME 97.4 fl (80-96); MEAN PLT VOLUME 10.1 fl (7.5-11.1); PLATELET COUNT 329 10^3/uL (134-434); RBC 4.12 M/mm3 (3.60-5.2); RDW 14.5 % (11.6-15.6); WHITE BLOOD COUNT 12.3 K/mm3 (4.0-10.0)
[2023-01-17 10:54] LABS: CHLORIDE 103 mmol/L (98-107); POTASSIUM 5.2 mmol/L (3.5-5.1); SODIUM 138 mmol/L (136-145)
[2023-01-17 10:56] LABS: ALBUMIN 3.8 g/dl (3.4-5.0); ANION GAP 14 MMOL/L (8-16); BLOOD UREA NITROGEN 24.8 mg/dL (7-18); CALCIUM 9.9 mg/dL (8.5-10.1); CO2 22 mmol/L (21-32)
[2023-01-17] MEDS ORDERED: VANCOMYCIN/WATER FOR INJ (PEG) 1,000 MG/200 ML BAG IVPB ONE (10:56)
[2023-01-17] MEDS ORDERED: PIPERACILLIN/TAZOB 4.5 GM 4.5 GM/100 ML BAG IVPB ONE (10:56)
[2023-01-17 10:59] LABS: CREATININE 1.3 mg/dL (0.55-1.3); SGOT/AST 28 U/L (15-37); SGPT/ALT 34 U/L (13-61)
[2023-01-17] MEDS ORDERED: AMIODARONE HCL IVPB ONE (10:59)
[2023-01-17] MEDS ORDERED: WATER IVPB ONE (10:59)
[2023-01-17] MEDS ORDERED: DEXTROSE 5% IVPB ONE (10:59)
[2023-01-17 11:01] LABS: BILIRUBIN,TOTAL 0.4 mg/dL (0.2-1); TOT PROT 7.7 g/dl (6.4-8.2)
[2023-01-17 11:02] LABS: ALK PHOS 122 U/L (45-117); GLUCOSE,RANDOM 545 mg/dL (74-106)
[2023-01-17] MEDS ORDERED: AMIODARONE IN DEXTROSE,ISO-OSM 360 MG/200 ML BAG IVPB ONE (11:15)
[2023-01-17 11:19] LABS: ANISOCYTOSIS 2+; MACROCYTOSIS 0; TEAR DROP CELLS 1+
[2023-01-17] MEDS ORDERED: PROPOFOL 1,000,000 MCG/100 ML VIAL ONE (11:27)
[2023-01-17] MEDS: PROPOFOL 1,000,000 MCG/100 ML VIAL IVPB SCH (11:37)
[2023-01-17 12:08] LABS: INR 0.97 (0.83-1.09); PROTHROMBIN TIME (PATIENT) 11.2 SEC (9.7-13.0)
[2023-01-17 12:11] LABS: ACTIVATED PTT 30.1 SECONDS (25.2-36.5)
[2023-01-17 12:27] LABS: LACTIC ACID 5.8 mmol/L (0.4-2.0)
[2023-01-17] MEDS ORDERED: INSULIN (NOVOLOG) ASPART 100 UNITS/ML 10ML VIAL ONE ×2 (14:27→16:46)
[2023-01-17] MEDS: MUPIROCIN 2% TOPICAL OINTMENT FOR DECOLONIZATION NS SCH ×2 (14:30→21:31)
[2023-01-17] MEDS: HEPARIN NA (PORCINE) 5,000 UNITS/ML 1ML VIAL SQ SCH ×2 (14:37→21:31)
[2023-01-17] MEDS: INSULIN SLIDING SCALE (NOVOLOG) 1 VIAL SQ SCH ×2 (14:45→16:49)
[2023-01-17 14:55] LABS: ARTERIAL BLD GAS O2 SATURATION 98.5 % (95-98); ARTERIAL BLOOD GAS BASE EXCESS -10.8 mmol/L (-2-2); ARTERIAL BLOOD GAS PO2 146.1 mmHg (80-100); ARTERIAL BLOOD GAS pH 7.243 (7.350-7.450)
[2023-01-17] MEDS ORDERED: SODIUM CHLORIDE 1,000 ML IV SCH (15:00)
[2023-01-17] MEDS ORDERED: INSULIN (NOVOLOG) ASPART 100 UNITS/ML 10ML VIAL SQ ONE (15:00)
[2023-01-17 15:02] LABS: ALLENS TEST POSITIVE; VENT MODE A/C
[2023-01-17 15:03] LABS: VENT RATE 12
[2023-01-17 15:44] LABS: LACTIC ACID 2.7 mmol/L (0.4-2.0)
[2023-01-17] MEDS ORDERED: SODIUM BICARBONATE 8.4% 50 MEQ/50 ML DISP.SYRIN IVPUSH ONE (15:58)
[2023-01-17] MEDS ORDERED: AMIODARONE IN DEXTROSE,ISO-OSM 360 MG/200 ML BAG IV SCH ×2 (16:15→17:30)
[2023-01-17] MEDS: FENTANYL NS IVPB 500 MCG/100 ML BAG IVPB SCH (16:17)
[2023-01-17] MEDS ORDERED: INSULIN SLIDING SCALE (NOVOLOG) 1 VIAL SQ SCH ×2 (16:45→17:19)
[2023-01-17] MEDS ORDERED: ALBUTEROL SO4 0.083% IH SOL 2.5 MG/3 ML VIAL.NEB. NEB PRN (17:13)
[2023-01-17] MEDS: PIPERACILLIN/TAZOB 3.375 GM 3.375 GM in DEXTROSE 5%-WATER - 50 ML IVPB SCH (17:32)
[2023-01-17] MEDS: ATORVASTATIN CA 80 MG TABLET (FP) PO SCH ×2 (17:32→21:31)
[2023-01-17] MEDS ORDERED: PIPERACILLIN/TAZOB 3.375 GM 3.375 GM in DEXTROSE 5%-WATER - 50 ML IVPB SCH (18:00)
[2023-01-17] MEDS ORDERED: INSULIN REGULAR HUMAN 100 UNITS/ML *VIAL IVPUSH ONE (18:43)
[2023-01-17 19:43] LABS: CHLORIDE 112 mmol/L (98-107); POTASSIUM 3.9 mmol/L (3.5-5.1); SODIUM 144 mmol/L (136-145)
[2023-01-17 19:46] LABS: ANION GAP 8 MMOL/L (8-16); BLOOD UREA NITROGEN 26.1 mg/dL (7-18); CO2 23 mmol/L (21-32)
[2023-01-17] MEDS ORDERED: DEXTROSE 50%-WATER - 25 GM/50 ML VIAL IVPUSH PRN (19:47)
[2023-01-17 19:49] LABS: CREATININE 1.2 mg/dL (0.55-1.3); SGOT/AST 93 U/L (15-37); SGPT/ALT 93 U/L (13-61)
[2023-01-17 19:51] LABS: BILIRUBIN,TOTAL 0.2 mg/dL (0.2-1)
[2023-01-17 19:52] LABS: ALK PHOS 109 U/L (45-117)
[2023-01-17] MEDS ORDERED: INSULIN REGULAR 100 UNITS in SODIUM CHLORIDE 99 ML IVPB SCH (20:00)
[2023-01-17 20:14] LABS: ALBUMIN 2.9 g/dl (3.4-5.0); CALCIUM 8.3 mg/dL (8.5-10.1); GLUCOSE,RANDOM 417 mg/dL (74-106); TOT PROT 5.6 g/dl (6.4-8.2)
[2023-01-17] MEDS: CHLORHEXIDINE GLUCONATE 4% CLEANSER FOR DECOLONIZATION TP SCH (21:31)
[2023-01-17] MEDS ORDERED: levETIRAcetam 500 MG/5 ML INJECTION VIAL IVPB ONE (22:32)
[2023-01-18] MEDS ORDERED: INSULIN (NOVOLOG) ASPART 100 UNITS/ML 10ML VIAL ONE ×3 (01:16→10:20)
[2023-01-18] MEDS: INSULIN SLIDING SCALE (NOVOLOG) 1 VIAL SQ SCH ×8 (01:19→21:21)
[2023-01-18] MEDS: PIPERACILLIN/TAZOB 3.375 GM 3.375 GM in DEXTROSE 5%-WATER - 50 ML IVPB SCH ×3 (01:19→17:34)
[2023-01-18] MEDS: LORazepam 2 MG/ML SDV VIAL IVPUSH PRN ×3 (01:20→20:10)
[2023-01-18] MEDS ORDERED: SODIUM CHLORIDE 1,000 ML IV STA (02:14)
[2023-01-18] MEDS: HEPARIN NA (PORCINE) 5,000 UNITS/ML 1ML VIAL SQ SCH ×3 (06:04→21:20)
[2023-01-18 06:40] LABS: ARTERIAL BLD GAS O2 SATURATION 99.2 % (95-98); ARTERIAL BLOOD GAS BASE EXCESS -1.5 mmol/L (-2-2); ARTERIAL BLOOD GAS PO2 164.6 mmHg (80-100); ARTERIAL BLOOD GAS pH 7.474 (7.350-7.450)
[2023-01-18 06:45] LABS: ALLENS TEST POSITIVE
[2023-01-18 06:46] LABS: VENT MODE A/C; VENT RATE 18
[2023-01-18 07:15] LABS: INR 1.19 (0.83-1.09); PROTHROMBIN TIME (PATIENT) 13.8 SEC (9.7-13.0)
[2023-01-18 07:18] LABS: ACTIVATED PTT 27.5 SECONDS (25.2-36.5)
[2023-01-18 07:28] LABS: POTASSIUM 3.9 mmol/L (3.5-5.1)
[2023-01-18] MEDS ORDERED: NOREPINEPHRINE BITARTRATE/D5W 8 MG/250 ML BAG IVPB SCH (07:30)
[2023-01-18 07:33] LABS: CALCIUM 7.8 mg/dL (8.5-10.1)
[2023-01-18 07:34] LABS: ALBUMIN 2.6 g/dl (3.4-5.0); BLOOD UREA NITROGEN 28.3 mg/dL (7-18); MAGNESIUM 1.7 mg/dL (1.8-2.4)
[2023-01-18 07:37] LABS: CREATININE 1.1 mg/dL (0.55-1.3); PHOSPHOROUS 2.6 mg/dL (2.5-4.9)
[2023-01-18 07:38] LABS: BILIRUBIN,TOTAL 0.1 mg/dL (0.2-1); TOT PROT 5.1 g/dl (6.4-8.2)
[2023-01-18 07:55] LABS: HEMOGLOBIN 10.6 GM/dL (10.7-15.3); MCH 31.4 pg (25.7-33.7); MCHC 33.2 g/dl (32.0-36.0); MEAN CELL VOLUME 94.6 fl (80-96); MEAN PLT VOLUME 9.9 fl (7.5-11.1); PLATELET COUNT 166 10^3/uL (134-434); RBC 3.39 M/mm3 (3.60-5.2); RDW 14.1 % (11.6-15.6); WHITE BLOOD COUNT 8.5 K/mm3 (4.0-10.0)
[2023-01-18] MEDS: PANTOPRAZOLE SODIUM 40 MG VIAL IVPUSH SCH (09:20)
[2023-01-18] MEDS: levETIRAcetam 500 MG/5 ML INJECTION VIAL IVPB SCH ×2 (09:20→21:21)
[2023-01-18] MEDS: LEVOTHYROXINE SODIUM 100 MCG 5 ML VIAL IVPUSH SCH (09:23)
[2023-01-18] MEDS: MUPIROCIN 2% TOPICAL OINTMENT FOR DECOLONIZATION NS SCH ×2 (09:25→21:21)
[2023-01-18 09:37] LABS: ANISOCYTOSIS 0; HELMET CELLS 0; HOWELL-JOLLY BODIES 0; MACROCYTOSIS 0; OVALOCYTE 0; ROULEAU 0; SICKELED CELLS 0; TARGET CELLS 0; TEAR DROP CELLS 0; TOXIC GRANULATION 0
[2023-01-18] MEDS: LACTATED RINGERS SOLUTION 1,000 ML/1,000 ML INFUS.BAG IV SCH (10:23)
[2023-01-18] MEDS: FENTANYL NS IVPB 500 MCG/100 ML BAG IVPB SCH ×3 (11:40→23:28)
[2023-01-18] MEDS: PROPOFOL 1,000,000 MCG/100 ML VIAL IVPB SCH ×2 (11:41→23:28)
[2023-01-18] MEDS ORDERED: ALBUTEROL SO4 2.5/IPRATROPIUM 0.5 INH SOL 3 ML VIAL.NEB. NEB ONE (12:59)
[2023-01-18] MEDS: ALBUTEROL SO4 0.083% IH SOL 2.5 MG/3 ML VIAL.NEB. NEB SCH ×3 (13:15→13:45)
[2023-01-18] MEDS: ATORVASTATIN CA 80 MG TABLET (FP) PO SCH (21:20)
[2023-01-18] MEDS: CHLORHEXIDINE GLUCONATE 4% CLEANSER FOR DECOLONIZATION TP SCH (21:21)
[2023-01-18] MEDS ORDERED: fentaNYL CITRATE 250 MCG/5 ML VIAL ONE (23:21)
[2023-01-19] MEDS: PIPERACILLIN/TAZOB 3.375 GM 3.375 GM in DEXTROSE 5%-WATER - 50 ML IVPB SCH ×3 (02:00→17:53)
[2023-01-19] MEDS: INSULIN SLIDING SCALE (NOVOLOG) 1 VIAL SQ SCH ×6 (03:28→23:06)
[2023-01-19] MEDS: HEPARIN NA (PORCINE) 5,000 UNITS/ML 1ML VIAL SQ SCH ×3 (05:57→21:21)
[2023-01-19] MEDS: methylPREDNISolone NA SUCC 40 MG/1 ML VIAL IVPUSH SCH ×3 (05:59→17:52)
[2023-01-19 07:14] LABS: HEMATOCRIT 30.8 % (32.4-45.2); HEMOGLOBIN 10.2 GM/dL (10.7-15.3); MCH 31.7 pg (25.7-33.7); MCHC 33.2 g/dl (32.0-36.0); MEAN CELL VOLUME 95.6 fl (80-96); MEAN PLT VOLUME 10.2 fl (7.5-11.1); PLATELET COUNT 134 10^3/uL (134-434); RBC 3.22 M/mm3 (3.60-5.2); RDW 14.3 % (11.6-15.6)
[2023-01-19 07:57] LABS: ALBUMIN 2.5 g/dl (3.4-5.0); BLOOD UREA NITROGEN 28.1 mg/dL (7-18); MAGNESIUM 1.6 mg/dL (1.8-2.4)
[2023-01-19 08:02] LABS: BILIRUBIN,TOTAL 0.4 mg/dL (0.2-1); CREATININE 0.8 mg/dL (0.55-1.3); PHOSPHOROUS 3.5 mg/dL (2.5-4.9); TOT PROT 5.1 g/dl (6.4-8.2)
[2023-01-19] MEDS ORDERED: MAGNESIUM SULF 50% (8.12 MEQ/2 ML-1 GM VIAL) IVPB ONE (08:10)
[2023-01-19] MEDS: levETIRAcetam 500 MG/5 ML INJECTION VIAL IVPB SCH ×2 (10:03→21:21)
[2023-01-19] MEDS: PANTOPRAZOLE SODIUM 40 MG VIAL IVPUSH SCH (10:03)
[2023-01-19] MEDS: LEVOTHYROXINE SODIUM 100 MCG 5 ML VIAL IVPUSH SCH (10:04)
[2023-01-19] MEDS: LACTATED RINGERS SOLUTION 1,000 ML/1,000 ML INFUS.BAG IV SCH (14:49)
[2023-01-19] MEDS: MUPIROCIN 2% TOPICAL OINTMENT FOR DECOLONIZATION NS SCH ×2 (14:50→21:21)
[2023-01-19] MEDS: FENTANYL NS IVPB 500 MCG/100 ML BAG IVPB SCH (17:53)
[2023-01-19] MEDS: PROPOFOL 1,000,000 MCG/100 ML VIAL IVPB SCH (17:54)
[2023-01-19] MEDS: CHLORHEXIDINE GLUCONATE 4% CLEANSER FOR DECOLONIZATION TP SCH (21:22)
[2023-01-19] MEDS: ATORVASTATIN CA 80 MG TABLET (FP) PO SCH (21:22)
[2023-01-20] MEDS: PIPERACILLIN/TAZOB 3.375 GM 3.375 GM in DEXTROSE 5%-WATER - 50 ML IVPB SCH ×3 (01:30→18:53)
[2023-01-20] MEDS: methylPREDNISolone NA SUCC 40 MG/1 ML VIAL IVPUSH SCH ×3 (01:30→18:53)
[2023-01-20] MEDS ORDERED: INSULIN (NOVOLOG) ASPART 100 UNITS/ML 10ML VIAL ONE ×4 (02:15→21:11)
[2023-01-20] MEDS: INSULIN SLIDING SCALE (NOVOLOG) 1 VIAL SQ SCH ×6 (02:18→21:18)
[2023-01-20] MEDS: HEPARIN NA (PORCINE) 5,000 UNITS/ML 1ML VIAL SQ SCH ×3 (07:36→21:15)
[2023-01-20 07:55] LABS: HEMATOCRIT 31.3 % (32.4-45.2); HEMOGLOBIN 10.3 GM/dL (10.7-15.3); MCH 31.6 pg (25.7-33.7); MCHC 32.9 g/dl (32.0-36.0); MEAN CELL VOLUME 96.1 fl (80-96); MEAN PLT VOLUME 10.7 fl (7.5-11.1); PLATELET COUNT 137 10^3/uL (134-434); RBC 3.25 M/mm3 (3.60-5.2); RDW 14.4 % (11.6-15.6)
[2023-01-20 07:58] LABS: POTASSIUM 4.1 mmol/L (3.5-5.1)
[2023-01-20 08:03] LABS: CALCIUM 8.3 mg/dL (8.5-10.1)
[2023-01-20 08:04] LABS: ALBUMIN 2.4 g/dl (3.4-5.0); BLOOD UREA NITROGEN 36.1 mg/dL (7-18); MAGNESIUM 2.4 mg/dL (1.8-2.4)
[2023-01-20 08:07] LABS: PHOSPHOROUS 4.6 mg/dL (2.5-4.9)
[2023-01-20 08:08] LABS: TOT PROT 5.2 g/dl (6.4-8.2)
[2023-01-20 08:09] LABS: BILIRUBIN,TOTAL 0.3 mg/dL (0.2-1)
[2023-01-20] MEDS: PANTOPRAZOLE SODIUM 40 MG VIAL IVPUSH SCH (09:25)
[2023-01-20] MEDS: levETIRAcetam 500 MG/5 ML INJECTION VIAL IVPB SCH ×2 (09:25→21:15)
[2023-01-20] MEDS: MUPIROCIN 2% TOPICAL OINTMENT FOR DECOLONIZATION NS SCH ×2 (09:25→21:18)
[2023-01-20] MEDS: LACTATED RINGERS SOLUTION 1,000 ML/1,000 ML INFUS.BAG IV SCH (09:25)
[2023-01-20] MEDS: LEVOTHYROXINE SODIUM 100 MCG 5 ML VIAL IVPUSH SCH (10:02)
[2023-01-20] MEDS ORDERED: NICARDIPINE 25 MG in DEXTROSE 5%-WATER - 240 ML IVPB SCH ×2 (13:00→13:30)
[2023-01-20] MEDS: DEXMEDETOMIDINE PREMIX 400 MCG/100 ML BAG IVPB SCH ×2 (13:11→21:18)
[2023-01-20] MEDS: ATORVASTATIN CA 80 MG TABLET (FP) PO SCH (21:17)
[2023-01-20] MEDS: CHLORHEXIDINE GLUCONATE 4% CLEANSER FOR DECOLONIZATION TP SCH (21:18)
[2023-01-20] MEDS: NICARDIPINE 25 MG in DEXTROSE 5%-WATER - 240 ML IVPB SCH (21:55)
[2023-01-21] MEDS ORDERED: INSULIN (NOVOLOG) ASPART 100 UNITS/ML 10ML VIAL ONE ×4 (02:36→20:54)
[2023-01-21] MEDS: methylPREDNISolone NA SUCC 40 MG/1 ML VIAL IVPUSH SCH ×3 (02:39→17:22)
[2023-01-21] MEDS: PIPERACILLIN/TAZOB 3.375 GM 3.375 GM in DEXTROSE 5%-WATER - 50 ML IVPB SCH ×3 (02:39→17:22)
[2023-01-21] MEDS: INSULIN SLIDING SCALE (NOVOLOG) 1 VIAL SQ SCH ×6 (02:40→21:08)
[2023-01-21] MEDS: DEXMEDETOMIDINE PREMIX 400 MCG/100 ML BAG IVPB SCH ×2 (02:47→17:21)
[2023-01-21] MEDS: HEPARIN NA (PORCINE) 5,000 UNITS/ML 1ML VIAL SQ SCH ×3 (06:04→21:06)
[2023-01-21] MEDS ORDERED: LACTATED RINGERS SOLUTION 1,000 ML/1,000 ML INFUS.BAG IV STA (06:41)
[2023-01-21 07:06] LABS: HEMATOCRIT 32.7 % (32.4-45.2); MCH 31.3 pg (25.7-33.7); MCHC 33.6 g/dl (32.0-36.0); MEAN CELL VOLUME 93.1 fl (80-96); MEAN PLT VOLUME 10.6 fl (7.5-11.1); PLATELET COUNT 153 10^3/uL (134-434); RBC 3.51 M/mm3 (3.60-5.2); WHITE BLOOD COUNT 11.1 K/mm3 (4.0-10.0)
[2023-01-21 07:25] LABS: POTASSIUM 4.2 mmol/L (3.5-5.1)
[2023-01-21 07:31] LABS: CALCIUM 8.6 mg/dL (8.5-10.1)
[2023-01-21 07:32] LABS: ALBUMIN 2.4 g/dl (3.4-5.0); BLOOD UREA NITROGEN 26.3 mg/dL (7-18); MAGNESIUM 2.1 mg/dL (1.8-2.4)
[2023-01-21 07:35] LABS: CREATININE 0.8 mg/dL (0.55-1.3); PHOSPHOROUS 3.2 mg/dL (2.5-4.9)
[2023-01-21 07:36] LABS: TOT PROT 5.7 g/dl (6.4-8.2)
[2023-01-21 07:38] LABS: BILIRUBIN,TOTAL 0.4 mg/dL (0.2-1)
[2023-01-21] MEDS: INSULIN (LEVEMIR) 100 UNITS/ML UNITS SQ SCH ×2 (08:02→21:08)
[2023-01-21] MEDS: PROPOFOL 1,000,000 MCG/100 ML VIAL IVPB SCH (08:03)
[2023-01-21] MEDS: FENTANYL NS IVPB 500 MCG/100 ML BAG IVPB SCH (08:03)
[2023-01-21] MEDS: levETIRAcetam 500 MG/5 ML INJECTION VIAL IVPB SCH ×2 (09:41→21:07)
[2023-01-21] MEDS: PANTOPRAZOLE SODIUM 40 MG VIAL IVPUSH SCH (09:43)
[2023-01-21] MEDS: LEVOTHYROXINE SODIUM 100 MCG 5 ML VIAL IVPUSH SCH (09:51)
[2023-01-21] MEDS: MUPIROCIN 2% TOPICAL OINTMENT FOR DECOLONIZATION NS SCH ×2 (09:52→21:07)
[2023-01-21 14:53] LABS: EPI CELLS 20 /uL (0-25.1); HYALINE CASTS 11 /uL (0-3.1); PH,URINE 6.5 (5.0-8.0); URINE APPEARANCE CLOUDY; URINE BACTERIA 2 /uL (0-1359); URINE BILIRUBIN NEGATIVE (NEGATIVE); URINE COLOR YELLOW; URINE GLUCOSE (UA) 2+ (NEGATIVE); URINE KETONE NEGATIVE (NEGATIVE); URINE LEUK ESTERASE TRACE (NEGATIVE); URINE NITRITE NEGATIVE (NEGATIVE); URINE PROTEIN NEGATIVE (NEGATIVE); URINE UROBILINOGEN 0.2 mg/dL (0.2-1.0); URINE WBC 165 /uL (0-25.8)
[2023-01-21 14:54] LABS: CREATININE, URINE RANDOM < 13.0 mg/dL (30-150)
[2023-01-21 15:21] LABS: URINE RBC 5 /uL (0-23.9); YEAST MANY (NEGATIVE)
[2023-01-21 15:36] VITALS: BMI 29.6
[2023-01-21 15:46] LABS: POTASSIUM 3.8 mmol/L (3.5-5.1)
[2023-01-21 15:48] LABS: CALCIUM 9.2 mg/dL (8.5-10.1)
[2023-01-21 15:49] LABS: BLOOD UREA NITROGEN 24.9 mg/dL (7-18)
[2023-01-21 15:52] LABS: CREATININE 0.8 mg/dL (0.55-1.3)
[2023-01-21] MEDS: NICARDIPINE 25 MG in DEXTROSE 5%-WATER - 240 ML IVPB SCH (21:07)
[2023-01-21] MEDS: CHLORHEXIDINE GLUCONATE 4% CLEANSER FOR DECOLONIZATION TP SCH (21:07)
[2023-01-21] MEDS: ATORVASTATIN CA 80 MG TABLET (FP) PO SCH (21:08)
[2023-01-22] MEDS ORDERED: INSULIN (NOVOLOG) ASPART 100 UNITS/ML 10ML VIAL ONE ×6 (02:11→21:25)
[2023-01-22] MEDS: PIPERACILLIN/TAZOB 3.375 GM 3.375 GM in DEXTROSE 5%-WATER - 50 ML IVPB SCH ×3 (02:15→17:27)
[2023-01-22] MEDS: methylPREDNISolone NA SUCC 40 MG/1 ML VIAL IVPUSH SCH ×3 (02:15→17:28)
[2023-01-22] MEDS: INSULIN SLIDING SCALE (NOVOLOG) 1 VIAL SQ SCH ×6 (02:16→21:26)
[2023-01-22] MEDS: DEXMEDETOMIDINE PREMIX 400 MCG/100 ML BAG IVPB SCH ×2 (04:05→14:21)
[2023-01-22] MEDS: INSULIN (LEVEMIR) 100 UNITS/ML UNITS SQ SCH ×2 (06:20→21:26)
[2023-01-22] MEDS: HEPARIN NA (PORCINE) 5,000 UNITS/ML 1ML VIAL SQ SCH ×3 (06:20→21:14)
[2023-01-22 06:31] LABS: HEMATOCRIT 35.1 % (32.4-45.2); HEMOGLOBIN 11.6 GM/dL (10.7-15.3); MCH 30.6 pg (25.7-33.7); MCHC 33.1 g/dl (32.0-36.0); MEAN CELL VOLUME 92.4 fl (80-96); MEAN PLT VOLUME 9.9 fl (7.5-11.1); PLATELET COUNT 197 10^3/uL (134-434); RDW 14.1 % (11.6-15.6); WHITE BLOOD COUNT 11.3 K/mm3 (4.0-10.0)
[2023-01-22 07:01] LABS: POTASSIUM 3.7 mmol/L (3.5-5.1)
[2023-01-22 07:03] LABS: BLOOD UREA NITROGEN 23.9 mg/dL (7-18); CALCIUM 8.6 mg/dL (8.5-10.1)
[2023-01-22 07:04] LABS: ALBUMIN 2.5 g/dl (3.4-5.0)
[2023-01-22 07:06] LABS: PHOSPHOROUS 3.4 mg/dL (2.5-4.9)
[2023-01-22 07:07] LABS: CREATININE 0.8 mg/dL (0.55-1.3)
[2023-01-22 07:08] LABS: BILIRUBIN,TOTAL 0.1 mg/dL (0.2-1); TOT PROT 5.9 g/dl (6.4-8.2)
[2023-01-22] MEDS: levETIRAcetam 500 MG/5 ML INJECTION VIAL IVPB SCH ×2 (09:18→21:13)
[2023-01-22] MEDS: PANTOPRAZOLE SODIUM 40 MG VIAL IVPUSH SCH (09:18)
[2023-01-22] MEDS: MUPIROCIN 2% TOPICAL OINTMENT FOR DECOLONIZATION NS SCH (09:21)
[2023-01-22] MEDS: LEVOTHYROXINE SODIUM 100 MCG 5 ML VIAL IVPUSH SCH (10:05)
[2023-01-22] MEDS: NICARDIPINE 25 MG in DEXTROSE 5%-WATER - 240 ML IVPB SCH (21:14)
[2023-01-22] MEDS: ATORVASTATIN CA 80 MG TABLET (FP) PO SCH (21:15)
[2023-01-22] MEDS: CHLORHEXIDINE GLUCONATE 4% CLEANSER FOR DECOLONIZATION TP SCH (21:15)
[2023-01-23] MEDS: methylPREDNISolone NA SUCC 40 MG/1 ML VIAL IVPUSH SCH ×3 (01:18→17:58)
[2023-01-23] MEDS: INSULIN SLIDING SCALE (NOVOLOG) 1 VIAL SQ SCH ×7 (01:19→21:31)
[2023-01-23] MEDS: PIPERACILLIN/TAZOB 3.375 GM 3.375 GM in DEXTROSE 5%-WATER - 50 ML IVPB SCH ×3 (01:19→17:58)
[2023-01-23] MEDS: HEPARIN NA (PORCINE) 5,000 UNITS/ML 1ML VIAL SQ SCH ×3 (06:10→21:39)
[2023-01-23] MEDS: INSULIN (LEVEMIR) 100 UNITS/ML UNITS SQ SCH ×2 (06:11→21:38)
[2023-01-23 07:29] LABS: HEMATOCRIT 34.4 % (32.4-45.2); HEMOGLOBIN 11.7 GM/dL (10.7-15.3); MCHC 34.1 g/dl (32.0-36.0); MEAN CELL VOLUME 90.7 fl (80-96); PLATELET COUNT 210 10^3/uL (134-434); RBC 3.79 M/mm3 (3.60-5.2); WHITE BLOOD COUNT 15.1 K/mm3 (4.0-10.0)
[2023-01-23 07:38] LABS: POTASSIUM 4.2 mmol/L (3.5-5.1)
[2023-01-23 07:41] LABS: CALCIUM 8.1 mg/dL (8.5-10.1)
[2023-01-23 07:42] LABS: ALBUMIN 2.4 g/dl (3.4-5.0); BLOOD UREA NITROGEN 35.2 mg/dL (7-18); MAGNESIUM 2.2 mg/dL (1.8-2.4)
[2023-01-23 07:45] LABS: PHOSPHOROUS 3.8 mg/dL (2.5-4.9)
[2023-01-23 07:46] LABS: BILIRUBIN,TOTAL 0.3 mg/dL (0.2-1); TOT PROT 5.6 g/dl (6.4-8.2)
[2023-01-23] MEDS: levETIRAcetam 500 MG/5 ML INJECTION VIAL IVPB SCH ×2 (09:13→21:39)
[2023-01-23] MEDS: PANTOPRAZOLE SODIUM 40 MG VIAL IVPUSH SCH (09:14)
[2023-01-23] MEDS: LEVOTHYROXINE SODIUM 100 MCG 5 ML VIAL IVPUSH SCH (10:26)
[2023-01-23] MEDS: ACETAMINOPHEN 1000 MG/100 ML BAG IVPB PRN (13:52)
[2023-01-23] MEDS ORDERED: INSULIN (NOVOLOG) ASPART 100 UNITS/ML 10ML VIAL ONE (18:13)
[2023-01-23] MEDS: NICARDIPINE 25 MG in DEXTROSE 5%-WATER - 240 ML IVPB SCH (21:23)
[2023-01-23] MEDS: CHLORHEXIDINE GLUCONATE 4% CLEANSER FOR DECOLONIZATION TP SCH (21:25)
[2023-01-23] MEDS: ATORVASTATIN CA 80 MG TABLET (FP) PO SCH (21:39)
[2023-01-23] MEDS: DEXMEDETOMIDINE PREMIX 400 MCG/100 ML BAG IVPB SCH (21:39)
[2023-01-24] MEDS: PIPERACILLIN/TAZOB 3.375 GM 3.375 GM in DEXTROSE 5%-WATER - 50 ML IVPB SCH ×3 (01:14→17:44)
[2023-01-24] MEDS: methylPREDNISolone NA SUCC 40 MG/1 ML VIAL IVPUSH SCH ×2 (01:14→09:38)
[2023-01-24] MEDS: INSULIN SLIDING SCALE (NOVOLOG) 1 VIAL SQ SCH ×5 (01:22→21:35)
[2023-01-24] MEDS ORDERED: INSULIN (NOVOLOG) ASPART 100 UNITS/ML 10ML VIAL ONE ×2 (05:37→11:41)
[2023-01-24] MEDS: HEPARIN NA (PORCINE) 5,000 UNITS/ML 1ML VIAL SQ SCH ×3 (05:45→21:29)
[2023-01-24] MEDS: INSULIN (LEVEMIR) 100 UNITS/ML UNITS SQ SCH ×2 (06:05→21:30)
[2023-01-24 07:34] LABS: HEMATOCRIT 33.8 % (32.4-45.2); HEMOGLOBIN 11.5 GM/dL (10.7-15.3); MCH 31.1 pg (25.7-33.7); MCHC 33.9 g/dl (32.0-36.0); MEAN CELL VOLUME 91.9 fl (80-96); MEAN PLT VOLUME 10.2 fl (7.5-11.1); PLATELET COUNT 222 10^3/uL (134-434); RBC 3.68 M/mm3 (3.60-5.2); RDW 13.9 % (11.6-15.6); WHITE BLOOD COUNT 20.5 K/mm3 (4.0-10.0)
[2023-01-24 07:47] LABS: POTASSIUM 3.5 mmol/L (3.5-5.1)
[2023-01-24 07:55] LABS: CALCIUM 8.1 mg/dL (8.5-10.1)
[2023-01-24 07:56] LABS: ALBUMIN 2.5 g/dl (3.4-5.0); BLOOD UREA NITROGEN 59.6 mg/dL (7-18); MAGNESIUM 2.6 mg/dL (1.8-2.4); PHOSPHOROUS 4.1 mg/dL (2.5-4.9)
[2023-01-24 07:58] LABS: BILIRUBIN,TOTAL 0.3 mg/dL (0.2-1); TOT PROT 5.5 g/dl (6.4-8.2)
[2023-01-24 07:59] LABS: CREATININE 1.1 mg/dL (0.55-1.3)
[2023-01-24] MEDS: PANTOPRAZOLE SODIUM 40 MG VIAL IVPUSH SCH (09:38)
[2023-01-24] MEDS: levETIRAcetam 500 MG/5 ML INJECTION VIAL IVPB SCH ×2 (09:38→21:29)
[2023-01-24] MEDS: ACETAMINOPHEN 1000 MG/100 ML BAG IVPB PRN ×2 (09:38→18:22)
[2023-01-24] MEDS: LEVOTHYROXINE SODIUM 100 MCG 5 ML VIAL IVPUSH SCH (09:40)
[2023-01-24] MEDS: amLODIPine BESYLATE 10 MG TABLET (FP) NGT SCH (12:42)
[2023-01-24] MEDS: CHLORHEXIDINE GLUCONATE 4% CLEANSER FOR DECOLONIZATION TP SCH (21:29)
[2023-01-24] MEDS: ATORVASTATIN CA 80 MG TABLET (FP) PO SCH (21:46)
[2023-01-25] MEDS: PIPERACILLIN/TAZOB 3.375 GM 3.375 GM in DEXTROSE 5%-WATER - 50 ML IVPB SCH ×2 (01:17→09:43)
[2023-01-25] MEDS: INSULIN SLIDING SCALE (NOVOLOG) 1 VIAL SQ SCH ×5 (06:23→21:36)
[2023-01-25] MEDS: HEPARIN NA (PORCINE) 5,000 UNITS/ML 1ML VIAL SQ SCH ×3 (06:27→21:35)
[2023-01-25] MEDS: INSULIN (LEVEMIR) 100 UNITS/ML UNITS SQ SCH ×2 (06:30→21:35)
[2023-01-25 08:13] LABS: HEMATOCRIT 34.5 % (32.4-45.2); HEMOGLOBIN 11.4 GM/dL (10.7-15.3); MCH 30.5 pg (25.7-33.7); MCHC 32.9 g/dl (32.0-36.0); MEAN CELL VOLUME 92.7 fl (80-96); MEAN PLT VOLUME 10.6 fl (7.5-11.1); PLATELET COUNT 221 10^3/uL (134-434); RBC 3.73 M/mm3 (3.60-5.2); WHITE BLOOD COUNT 18.6 K/mm3 (4.0-10.0)
[2023-01-25 08:16] LABS: POTASSIUM 3.9 mmol/L (3.5-5.1)
[2023-01-25 08:19] LABS: BLOOD UREA NITROGEN 51.6 mg/dL (7-18); CALCIUM 7.8 mg/dL (8.5-10.1); MAGNESIUM 2.7 mg/dL (1.8-2.4)
[2023-01-25 08:23] LABS: PHOSPHOROUS 2.7 mg/dL (2.5-4.9)
[2023-01-25] MEDS: levETIRAcetam 500 MG/5 ML INJECTION VIAL IVPB SCH ×2 (09:41→21:35)
[2023-01-25] MEDS: LEVOTHYROXINE SODIUM 100 MCG 5 ML VIAL IVPUSH SCH (09:41)
[2023-01-25] MEDS: PANTOPRAZOLE SODIUM 40 MG VIAL IVPUSH SCH (09:41)
[2023-01-25] MEDS: amLODIPine BESYLATE 10 MG TABLET (FP) NGT SCH (09:43)
[2023-01-25] MEDS ORDERED: INSULIN (NOVOLOG) ASPART 100 UNITS/ML 10ML VIAL ONE ×2 (11:24→21:15)
[2023-01-25] MEDS: ACETAMINOPHEN 1000 MG/100 ML BAG IVPB PRN ×2 (11:49→21:41)
[2023-01-25] MEDS: CHLORHEXIDINE GLUCONATE 4% CLEANSER FOR DECOLONIZATION TP SCH (21:35)
[2023-01-25] MEDS: ATORVASTATIN CA 80 MG TABLET (FP) PO SCH (21:36)
[2023-01-26] MEDS ORDERED: INSULIN (NOVOLOG) ASPART 100 UNITS/ML 10ML VIAL ONE ×2 (05:55→12:41)
[2023-01-26] MEDS: HEPARIN NA (PORCINE) 5,000 UNITS/ML 1ML VIAL SQ SCH ×3 (06:04→21:25)
[2023-01-26] MEDS: INSULIN SLIDING SCALE (NOVOLOG) 1 VIAL SQ SCH ×4 (06:05→21:24)
[2023-01-26] MEDS: INSULIN (LEVEMIR) 100 UNITS/ML UNITS SQ SCH ×2 (06:05→21:25)
[2023-01-26 06:47] LABS: HEMATOCRIT 32.4 % (32.4-45.2); HEMOGLOBIN 10.6 GM/dL (10.7-15.3); MCHC 32.9 g/dl (32.0-36.0); MEAN CELL VOLUME 94.2 fl (80-96); MEAN PLT VOLUME 10.1 fl (7.5-11.1); PLATELET COUNT 212 10^3/uL (134-434); RBC 3.43 M/mm3 (3.60-5.2); RDW 14.3 % (11.6-15.6); WHITE BLOOD COUNT 17.8 K/mm3 (4.0-10.0)
[2023-01-26 07:11] LABS: BLOOD UREA NITROGEN 43.7 mg/dL (7-18); CALCIUM 7.5 mg/dL (8.5-10.1); CREATININE 0.9 mg/dL (0.55-1.3); MAGNESIUM 2.7 mg/dL (1.8-2.4); PHOSPHOROUS 2.4 mg/dL (2.5-4.9); POTASSIUM 3.5 mmol/L (3.5-5.1)
[2023-01-26] MEDS: PANTOPRAZOLE SODIUM 40 MG VIAL IVPUSH SCH (09:22)
[2023-01-26] MEDS: levETIRAcetam 500 MG/5 ML INJECTION VIAL IVPB SCH ×2 (09:22→21:25)
[2023-01-26] MEDS: LEVOTHYROXINE SODIUM 100 MCG 5 ML VIAL IVPUSH SCH (09:22)
[2023-01-26] MEDS: amLODIPine BESYLATE 10 MG TABLET (FP) NGT SCH (09:23)
[2023-01-26] MEDS: PIPERACILLIN/TAZOB 3.375 GM 3.375 GM in DEXTROSE 5%-WATER - 50 ML IVPB SCH ×2 (09:24→18:35)
[2023-01-26] MEDS: ACETAMINOPHEN 1000 MG/100 ML BAG IVPB PRN (12:45)
[2023-01-26] MEDS ORDERED: SODIUM CHLORIDE 0.9% 500 ML INFUS.BAG IV ONE (14:22)
[2023-01-26] MEDS: ATORVASTATIN CA 80 MG TABLET (FP) PO SCH (21:25)
[2023-01-26] MEDS: CHLORHEXIDINE GLUCONATE 4% CLEANSER FOR DECOLONIZATION TP SCH (21:25)
[2023-01-27] MEDS: PIPERACILLIN/TAZOB 3.375 GM 3.375 GM in DEXTROSE 5%-WATER - 50 ML IVPB SCH ×3 (00:59→11:04)
[2023-01-27] MEDS: ACETAMINOPHEN 1000 MG/100 ML BAG IVPB PRN ×2 (04:44→14:19)
[2023-01-27] MEDS: INSULIN (LEVEMIR) 100 UNITS/ML UNITS SQ SCH ×2 (06:20→21:21)
[2023-01-27] MEDS: INSULIN SLIDING SCALE (NOVOLOG) 1 VIAL SQ SCH ×4 (06:21→21:21)
[2023-01-27] MEDS: HEPARIN NA (PORCINE) 5,000 UNITS/ML 1ML VIAL SQ SCH ×3 (06:21→21:22)
[2023-01-27 07:01] LABS: HEMATOCRIT 30.7 % (32.4-45.2); MCH 30.5 pg (25.7-33.7); MCHC 32.5 g/dl (32.0-36.0); MEAN CELL VOLUME 93.9 fl (80-96); MEAN PLT VOLUME 9.8 fl (7.5-11.1); PLATELET COUNT 202 10^3/uL (134-434); RBC 3.27 M/mm3 (3.60-5.2); RDW 14.3 % (11.6-15.6); WHITE BLOOD COUNT 17.6 K/mm3 (4.0-10.0)
[2023-01-27 07:09] LABS: INR 1.02 (0.83-1.09); PROTHROMBIN TIME (PATIENT) 11.8 SEC (9.7-13.0)
[2023-01-27 07:11] LABS: ACTIVATED PTT 42.5 SECONDS (25.2-36.5)
[2023-01-27 07:48] LABS: POTASSIUM 3.6 mmol/L (3.5-5.1)
[2023-01-27 07:50] LABS: CALCIUM 7.3 mg/dL (8.5-10.1)
[2023-01-27 07:51] LABS: MAGNESIUM 2.6 mg/dL (1.8-2.4)
[2023-01-27 07:54] LABS: CREATININE 0.8 mg/dL (0.55-1.3); PHOSPHOROUS 1.8 mg/dL (2.5-4.9)
[2023-01-27 07:55] LABS: BILIRUBIN,TOTAL 0.2 mg/dL (0.2-1); TOT PROT 4.7 g/dl (6.4-8.2)
[2023-01-27 07:58] LABS: ALBUMIN 1.9 g/dl (3.4-5.0)
[2023-01-27] MEDS: LEVOTHYROXINE SODIUM 100 MCG 5 ML VIAL IVPUSH SCH (09:20)
[2023-01-27] MEDS: amLODIPine BESYLATE 10 MG TABLET (FP) NGT SCH (09:21)
[2023-01-27] MEDS: levETIRAcetam 500 MG/5 ML INJECTION VIAL IVPB SCH ×2 (09:22→21:21)
[2023-01-27] MEDS: PANTOPRAZOLE SODIUM 40 MG VIAL IVPUSH SCH (09:22)
[2023-01-27] MEDS ORDERED: ROCURONIUM BROMIDE 50 MG/5 ML VIAL IVPUSH ONE (09:23)
[2023-01-27] MEDS ORDERED: MIDAZOLAM HCL 5 MG/1 ML Single Dose Vial IVPUSH ONE (09:24)
[2023-01-27] MEDS ORDERED: INSULIN (NOVOLOG) ASPART 100 UNITS/ML 10ML VIAL ONE ×2 (11:19→21:17)
[2023-01-27] MEDS ORDERED: NAPH,MB-DB/K PH,MBDB POWDER PACKET GT ONE (13:17)
[2023-01-27] MEDS ORDERED: VANCOMYCIN 1,000 MG in DEXTROSE 5%-WATER - 250 ML IVPB SCH (14:30)
[2023-01-27] MEDS ORDERED: VANCOMYCIN/WATER FOR INJ (PEG) 1,000 MG/200 ML BAG IVPB ONE (14:30)
[2023-01-27 15:45] LABS: EPI CELLS 10 /uL (0-25.1); HYALINE CASTS 5 /uL (0-3.1); URINE APPEARANCE CLOUDY; URINE BACTERIA 16 /uL (0-1359); URINE BILIRUBIN NEGATIVE (NEGATIVE); URINE COLOR YELLOW; URINE GLUCOSE (UA) 2+ (NEGATIVE); URINE KETONE NEGATIVE (NEGATIVE); URINE LEUK ESTERASE 2+ (NEGATIVE); URINE NITRITE NEGATIVE (NEGATIVE); URINE PROTEIN 1+ (NEGATIVE); URINE WBC 1972 /uL (0-25.8)
[2023-01-27 15:46] LABS: URINE RBC 399.7 /uL (0-23.9); YEAST NEGATIVE (NEGATIVE)
[2023-01-27] MEDS ORDERED: CEFEPIME 2 GM in DEXTROSE 5%-WATER 100 ML IVPB SCH ×2 (16:00→22:00)
[2023-01-27] MEDS: CEFEPIME 2 GM in DEXTROSE 5%-WATER 100 ML IVPB SCH ×2 (16:38→23:34)
[2023-01-27] MEDS: CHLORHEXIDINE GLUCONATE 4% CLEANSER FOR DECOLONIZATION TP SCH (21:22)
[2023-01-27] MEDS: ATORVASTATIN CA 80 MG TABLET (FP) PO SCH (21:23)
[2023-01-27] MEDS ORDERED: CEFEPIME HCL 1 GM VIAL (RESTRICTED TO ID) IVPB SCH ×2 (22:00)
[2023-01-28] MEDS: ACETAMINOPHEN 1000 MG/100 ML BAG IVPB PRN ×2 (05:36→16:50)
[2023-01-28] MEDS ORDERED: INSULIN (NOVOLOG) ASPART 100 UNITS/ML 10ML VIAL ONE ×4 (06:09→21:05)
[2023-01-28] MEDS: INSULIN (LEVEMIR) 100 UNITS/ML UNITS SQ SCH ×2 (06:13→21:04)
[2023-01-28] MEDS: HEPARIN NA (PORCINE) 5,000 UNITS/ML 1ML VIAL SQ SCH ×2 (06:15→14:12)
[2023-01-28] MEDS: INSULIN SLIDING SCALE (NOVOLOG) 1 VIAL SQ SCH ×4 (06:15→21:05)
[2023-01-28] MEDS: CEFEPIME 2 GM in DEXTROSE 5%-WATER 100 ML IVPB SCH ×2 (08:12→16:22)
[2023-01-28] MEDS: levETIRAcetam 500 MG/5 ML INJECTION VIAL IVPB SCH ×2 (09:28→21:17)
[2023-01-28] MEDS: amLODIPine BESYLATE 10 MG TABLET (FP) NGT SCH (09:28)
[2023-01-28] MEDS: PANTOPRAZOLE SODIUM 40 MG VIAL IVPUSH SCH (09:28)
[2023-01-28] MEDS: LEVOTHYROXINE SODIUM 100 MCG 5 ML VIAL IVPUSH SCH (09:30)
[2023-01-28] MEDS ORDERED: VANCOMYCIN/WATER FOR INJ (PEG) 1,000 MG/200 ML BAG IVPB ONE (11:50)
[2023-01-28 12:52] LABS: HEMATOCRIT 30.7 % (32.4-45.2); HEMOGLOBIN 10.2 GM/dL (10.7-15.3); MCH 30.7 pg (25.7-33.7); MCHC 33.2 g/dl (32.0-36.0); MEAN CELL VOLUME 92.5 fl (80-96); MEAN PLT VOLUME 9.9 fl (7.5-11.1); PLATELET COUNT 216 10^3/uL (134-434); RBC 3.32 M/mm3 (3.60-5.2); RDW 14.6 % (11.6-15.6); WHITE BLOOD COUNT 17.3 K/mm3 (4.0-10.0)
[2023-01-28 13:14] LABS: CALCIUM 7.8 mg/dL (8.5-10.1)
[2023-01-28 13:15] LABS: ALBUMIN 2.1 g/dl (3.4-5.0); BLOOD UREA NITROGEN 27.1 mg/dL (7-18); MAGNESIUM 2.8 mg/dL (1.8-2.4)
[2023-01-28 13:18] LABS: CREATININE 0.7 mg/dL (0.55-1.3); PHOSPHOROUS 2.3 mg/dL (2.5-4.9)
[2023-01-28 13:20] LABS: TOT PROT 5.4 g/dl (6.4-8.2)
[2023-01-28 13:25] LABS: BILIRUBIN,TOTAL 0.1 mg/dL (0.2-1)
[2023-01-28] MEDS: ATORVASTATIN CA 80 MG TABLET (FP) PO SCH (21:17)
[2023-01-28] MEDS: CHLORHEXIDINE GLUCONATE 4% CLEANSER FOR DECOLONIZATION TP SCH (21:17)
[2023-01-29] MEDS: CEFEPIME 2 GM in DEXTROSE 5%-WATER 100 ML IVPB SCH ×3 (00:08→15:49)
[2023-01-29] MEDS ORDERED: INSULIN (NOVOLOG) ASPART 100 UNITS/ML 10ML VIAL ONE ×3 (05:44→15:58)
[2023-01-29] MEDS: INSULIN (LEVEMIR) 100 UNITS/ML UNITS SQ SCH ×2 (06:24→21:44)
[2023-01-29] MEDS: INSULIN SLIDING SCALE (NOVOLOG) 1 VIAL SQ SCH ×4 (06:41→22:07)
[2023-01-29 07:20] LABS: HEMATOCRIT 32.5 % (32.4-45.2); HEMOGLOBIN 10.8 GM/dL (10.7-15.3); MCH 31.1 pg (25.7-33.7); MCHC 33.4 g/dl (32.0-36.0); MEAN CELL VOLUME 93.3 fl (80-96); MEAN PLT VOLUME 10.4 fl (7.5-11.1); PLATELET COUNT 241 10^3/uL (134-434); RBC 3.48 M/mm3 (3.60-5.2)
[2023-01-29 07:58] LABS: POTASSIUM 4.4 mmol/L (3.5-5.1)
[2023-01-29 08:01] LABS: BLOOD UREA NITROGEN 23.4 mg/dL (7-18); MAGNESIUM 2.4 mg/dL (1.8-2.4)
[2023-01-29 08:03] LABS: PHOSPHOROUS 2.5 mg/dL (2.5-4.9)
[2023-01-29 08:04] LABS: CREATININE 0.5 mg/dL (0.55-1.3)
[2023-01-29 08:05] LABS: BILIRUBIN,TOTAL 0.3 mg/dL (0.2-1); TOT PROT 5.5 g/dl (6.4-8.2)
[2023-01-29] MEDS: LEVOTHYROXINE SODIUM 100 MCG 5 ML VIAL IVPUSH SCH (09:19)
[2023-01-29] MEDS: levETIRAcetam 500 MG/5 ML INJECTION VIAL IVPB SCH ×2 (09:25→21:43)
[2023-01-29] MEDS: PANTOPRAZOLE SODIUM 40 MG VIAL IVPUSH SCH (09:25)
[2023-01-29] MEDS: amLODIPine BESYLATE 10 MG TABLET (FP) NGT SCH (09:47)
[2023-01-29] MEDS ORDERED: PROPOFOL 200 MG/20 ML VIAL IVPUSH ONE ×2 (10:13→13:06)
[2023-01-29] MEDS ORDERED: PROPOFOL 1,000,000 MCG/100 ML VIAL ONE (10:14)
[2023-01-29] MEDS ORDERED: PROPOFOL 1,000,000 MCG/100 ML VIAL IVPB SCH (10:30)
[2023-01-29] MEDS ORDERED: ROCURONIUM BROMIDE 50 MG/5 ML VIAL IVPUSH ONE (11:00)
[2023-01-29] MEDS ORDERED: MIDAZOLAM HCL 5 MG/1 ML Single Dose Vial IVPUSH ONE (11:00)
[2023-01-29] MEDS: LOSARTAN POTASSIUM 50 MG TABLET PO SCH (18:31)
[2023-01-29] MEDS: CHLORHEXIDINE GLUCONATE 4% CLEANSER FOR DECOLONIZATION TP SCH (21:43)
[2023-01-29] MEDS: ATORVASTATIN CA 80 MG TABLET (FP) PO SCH (21:44)
[2023-01-30] MEDS: CEFEPIME 2 GM in DEXTROSE 5%-WATER 100 ML IVPB SCH ×4 (01:11→23:31)
[2023-01-30] MEDS: INSULIN SLIDING SCALE (NOVOLOG) 1 VIAL SQ SCH ×4 (06:11→21:49)
[2023-01-30] MEDS: INSULIN (LEVEMIR) 100 UNITS/ML UNITS SQ SCH ×2 (06:12→21:49)
[2023-01-30 07:56] LABS: HEMATOCRIT 29.6 % (32.4-45.2); HEMOGLOBIN 9.6 GM/dL (10.7-15.3); MCH 30.5 pg (25.7-33.7); MCHC 32.5 g/dl (32.0-36.0); MEAN CELL VOLUME 93.9 fl (80-96); MEAN PLT VOLUME 10.8 fl (7.5-11.1); PLATELET COUNT 228 10^3/uL (134-434); RBC 3.15 M/mm3 (3.60-5.2); RDW 14.5 % (11.6-15.6); WHITE BLOOD COUNT 13.9 K/mm3 (4.0-10.0)
[2023-01-30 08:30] LABS: POTASSIUM 4.7 mmol/L (3.5-5.1)
[2023-01-30 08:37] LABS: CALCIUM 7.7 mg/dL (8.5-10.1)
[2023-01-30 08:38] LABS: ALBUMIN 1.9 g/dl (3.4-5.0); BLOOD UREA NITROGEN 21.2 mg/dL (7-18); MAGNESIUM 2.3 mg/dL (1.8-2.4)
[2023-01-30 08:41] LABS: CREATININE 0.6 mg/dL (0.55-1.3); PHOSPHOROUS 3.4 mg/dL (2.5-4.9)
[2023-01-30 08:42] LABS: BILIRUBIN,TOTAL 0.2 mg/dL (0.2-1); TOT PROT 5.1 g/dl (6.4-8.2)
[2023-01-30] MEDS: levETIRAcetam 500 MG/5 ML INJECTION VIAL IVPB SCH ×2 (10:08→21:48)
[2023-01-30] MEDS: LOSARTAN POTASSIUM 50 MG TABLET PO SCH (10:09)
[2023-01-30] MEDS: PANTOPRAZOLE SODIUM 40 MG VIAL IVPUSH SCH (10:09)
[2023-01-30] MEDS: LEVOTHYROXINE SODIUM 100 MCG 5 ML VIAL IVPUSH SCH (10:10)
[2023-01-30] MEDS: amLODIPine BESYLATE 10 MG TABLET (FP) NGT SCH (10:10)
[2023-01-30] MEDS: HEPARIN NA (PORCINE) 5,000 UNITS/ML 1ML VIAL SQ SCH ×2 (14:37→21:48)
[2023-01-30] MEDS ORDERED: INSULIN (NOVOLOG) ASPART 100 UNITS/ML 10ML VIAL ONE ×2 (17:48→21:41)
[2023-01-30] MEDS: ATORVASTATIN CA 80 MG TABLET (FP) PO SCH (21:48)
[2023-01-30] MEDS: CHLORHEXIDINE GLUCONATE 4% CLEANSER FOR DECOLONIZATION TP SCH (21:49)
[2023-01-31] MEDS: INSULIN (LEVEMIR) 100 UNITS/ML UNITS SQ SCH ×2 (06:19→21:23)
[2023-01-31] MEDS: HEPARIN NA (PORCINE) 5,000 UNITS/ML 1ML VIAL SQ SCH ×3 (06:19→21:23)
[2023-01-31] MEDS: INSULIN SLIDING SCALE (NOVOLOG) 1 VIAL SQ SCH ×4 (06:19→21:24)
[2023-01-31] MEDS ORDERED: INSULIN (NOVOLOG) ASPART 100 UNITS/ML 10ML VIAL ONE ×3 (07:23→21:11)
[2023-01-31 07:44] LABS: HEMATOCRIT 26.5 % (32.4-45.2); HEMOGLOBIN 8.8 GM/dL (10.7-15.3); MCH 31.4 pg (25.7-33.7); MCHC 33.3 g/dl (32.0-36.0); MEAN CELL VOLUME 94.3 fl (80-96); MEAN PLT VOLUME 10.6 fl (7.5-11.1); PLATELET COUNT 217 10^3/uL (134-434); RBC 2.81 M/mm3 (3.60-5.2); RDW 14.3 % (11.6-15.6); WHITE BLOOD COUNT 8.9 K/mm3 (4.0-10.0)
[2023-01-31 08:13] LABS: POTASSIUM 4.5 mmol/L (3.5-5.1)
[2023-01-31 08:17] LABS: ALBUMIN 1.7 g/dl (3.4-5.0); BLOOD UREA NITROGEN 23.3 mg/dL (7-18); CALCIUM 7.6 mg/dL (8.5-10.1)
[2023-01-31 08:20] LABS: CREATININE 0.7 mg/dL (0.55-1.3)
[2023-01-31 08:22] LABS: BILIRUBIN,TOTAL 0.2 mg/dL (0.2-1); TOT PROT 5.1 g/dl (6.4-8.2)
[2023-01-31] MEDS: CEFEPIME 2 GM in DEXTROSE 5%-WATER 100 ML IVPB SCH ×3 (08:58→23:33)
[2023-01-31 10:14] LABS: ANISOCYTOSIS 0; HELMET CELLS 0; HOWELL-JOLLY BODIES 0; MACROCYTOSIS 0; OVALOCYTE 0; ROULEAU 0; SICKELED CELLS 0; TARGET CELLS 0; TEAR DROP CELLS 0; TOXIC GRANULATION 0
[2023-01-31] MEDS: LOSARTAN POTASSIUM 50 MG TABLET PO SCH (10:48)
[2023-01-31] MEDS: amLODIPine BESYLATE 10 MG TABLET (FP) NGT SCH (10:48)
[2023-01-31] MEDS: levETIRAcetam 500 MG/5 ML INJECTION VIAL IVPB SCH ×2 (10:48→21:23)
[2023-01-31] MEDS: PANTOPRAZOLE SODIUM 40 MG VIAL IVPUSH SCH (10:48)
[2023-01-31] MEDS: LACTOBACILLUS ACIDOPHILUS 1 TABLET PO SCH (10:48)
[2023-01-31] MEDS: LEVOTHYROXINE SODIUM 100 MCG 5 ML VIAL IVPUSH SCH (10:49)
[2023-01-31] MEDS: CHLORHEXIDINE GLUCONATE 4% CLEANSER FOR DECOLONIZATION TP SCH (21:23)
[2023-01-31] MEDS: ATORVASTATIN CA 80 MG TABLET (FP) PO SCH (21:24)
[2023-02-01] MEDS ORDERED: INSULIN (NOVOLOG) ASPART 100 UNITS/ML 10ML VIAL ONE ×3 (05:59→21:38)
[2023-02-01] MEDS: HEPARIN NA (PORCINE) 5,000 UNITS/ML 1ML VIAL SQ SCH ×3 (06:04→21:27)
[2023-02-01] MEDS: INSULIN SLIDING SCALE (NOVOLOG) 1 VIAL SQ SCH ×4 (06:04→21:40)
[2023-02-01] MEDS: INSULIN (LEVEMIR) 100 UNITS/ML UNITS SQ SCH ×2 (06:05→21:37)
[2023-02-01 07:30] LABS: HEMATOCRIT 27.5 % (32.4-45.2); HEMOGLOBIN 9.1 GM/dL (10.7-15.3); MCH 31.1 pg (25.7-33.7); MCHC 33.2 g/dl (32.0-36.0); MEAN CELL VOLUME 93.6 fl (80-96); MEAN PLT VOLUME 10.9 fl (7.5-11.1); PLATELET COUNT 223 10^3/uL (134-434); RBC 2.94 M/mm3 (3.60-5.2); RDW 14.5 % (11.6-15.6); WHITE BLOOD COUNT 10.1 K/mm3 (4.0-10.0)
[2023-02-01 07:47] LABS: POTASSIUM 4.6 mmol/L (3.5-5.1)
[2023-02-01] MEDS: CEFEPIME 2 GM in DEXTROSE 5%-WATER 100 ML IVPB SCH ×2 (07:47→17:03)
[2023-02-01 07:50] LABS: BLOOD UREA NITROGEN 20.6 mg/dL (7-18); CALCIUM 7.7 mg/dL (8.5-10.1); MAGNESIUM 2.1 mg/dL (1.8-2.4)
[2023-02-01 07:54] LABS: CREATININE 0.7 mg/dL (0.55-1.3)
[2023-02-01] MEDS: LACTOBACILLUS ACIDOPHILUS 1 TABLET PO SCH (09:07)
[2023-02-01] MEDS: amLODIPine BESYLATE 10 MG TABLET (FP) NGT SCH (09:07)
[2023-02-01] MEDS: LOSARTAN POTASSIUM 50 MG TABLET PO SCH (09:07)
[2023-02-01] MEDS: LEVOTHYROXINE SODIUM 100 MCG 5 ML VIAL IVPUSH SCH (09:07)
[2023-02-01] MEDS: PANTOPRAZOLE SODIUM 40 MG VIAL IVPUSH SCH (09:07)
[2023-02-01] MEDS: levETIRAcetam 500 MG/5 ML INJECTION VIAL IVPB SCH ×2 (09:07→21:30)
[2023-02-01 09:51] LABS: ANISOCYTOSIS 0; HELMET CELLS 0; HOWELL-JOLLY BODIES 0; MACROCYTOSIS 0; OVALOCYTE 0; ROULEAU 0; SICKELED CELLS 0; TARGET CELLS 0; TEAR DROP CELLS 0; TOXIC GRANULATION 0
[2023-02-01] MEDS: ACETAMINOPHEN 1000 MG/100 ML BAG IVPB PRN (12:42)
[2023-02-01] MEDS: CHLORHEXIDINE GLUCONATE 4% CLEANSER FOR DECOLONIZATION TP SCH (21:27)
[2023-02-01] MEDS: ATORVASTATIN CA 80 MG TABLET (FP) PO SCH (21:32)
[2023-02-02] MEDS: CEFEPIME 2 GM in DEXTROSE 5%-WATER 100 ML IVPB SCH ×2 (00:50→09:13)
[2023-02-02] MEDS: HEPARIN NA (PORCINE) 5,000 UNITS/ML 1ML VIAL SQ SCH ×3 (06:08→21:05)
[2023-02-02] MEDS: INSULIN SLIDING SCALE (NOVOLOG) 1 VIAL SQ SCH ×4 (06:08→21:03)
[2023-02-02] MEDS: INSULIN (LEVEMIR) 100 UNITS/ML UNITS SQ SCH ×3 (06:08→21:03)
[2023-02-02 07:22] LABS: HEMATOCRIT 28.4 % (32.4-45.2); HEMOGLOBIN 9.3 GM/dL (10.7-15.3); MCH 30.7 pg (25.7-33.7); MCHC 32.9 g/dl (32.0-36.0); MEAN CELL VOLUME 93.5 fl (80-96); MEAN PLT VOLUME 10.9 fl (7.5-11.1); PLATELET COUNT 231 10^3/uL (134-434); RBC 3.04 M/mm3 (3.60-5.2); RDW 14.8 % (11.6-15.6); WHITE BLOOD COUNT 9.9 K/mm3 (4.0-10.0)
[2023-02-02 07:36] LABS: POTASSIUM 4.7 mmol/L (3.5-5.1)
[2023-02-02 07:40] LABS: BLOOD UREA NITROGEN 25.5 mg/dL (7-18)
[2023-02-02 07:43] LABS: CREATININE 0.7 mg/dL (0.55-1.3)
[2023-02-02 08:49] LABS: ANISOCYTOSIS 0; HELMET CELLS 0; HOWELL-JOLLY BODIES 0; MACROCYTOSIS 0; OVALOCYTE 0; ROULEAU 0; SICKELED CELLS 0; TARGET CELLS 0; TEAR DROP CELLS 0; TOXIC GRANULATION 0
[2023-02-02] MEDS: levETIRAcetam 500 MG/5 ML INJECTION VIAL IVPB SCH ×2 (09:14→21:04)
[2023-02-02] MEDS: PANTOPRAZOLE SODIUM 40 MG VIAL IVPUSH SCH (09:16)
[2023-02-02] MEDS: LOSARTAN POTASSIUM 50 MG TABLET PO SCH (09:18)
[2023-02-02] MEDS: amLODIPine BESYLATE 10 MG TABLET (FP) NGT SCH (09:19)
[2023-02-02] MEDS: LACTOBACILLUS ACIDOPHILUS 1 TABLET PO SCH (09:20)
[2023-02-02] MEDS: LEVOTHYROXINE SODIUM 100 MCG 5 ML VIAL IVPUSH SCH (09:29)
[2023-02-02] MEDS ORDERED: INSULIN (NOVOLOG) ASPART 100 UNITS/ML 10ML VIAL ONE (10:46)
[2023-02-02] MEDS: CHLORHEXIDINE GLUCONATE 4% CLEANSER FOR DECOLONIZATION TP SCH (21:05)
[2023-02-02] MEDS: ATORVASTATIN CA 80 MG TABLET (FP) PO SCH (21:05)
[2023-02-03] MEDS: INSULIN (LEVEMIR) 100 UNITS/ML UNITS SQ SCH (06:19)
[2023-02-03] MEDS: INSULIN SLIDING SCALE (NOVOLOG) 1 VIAL SQ SCH ×4 (06:19→21:29)
[2023-02-03] MEDS: HEPARIN NA (PORCINE) 5,000 UNITS/ML 1ML VIAL SQ SCH ×2 (06:19→18:39)
[2023-02-03] MEDS ORDERED: INSULIN (NOVOLOG) ASPART 100 UNITS/ML 10ML VIAL ONE (06:28)
[2023-02-03] MEDS: LOSARTAN POTASSIUM 50 MG TABLET PO SCH (09:38)
[2023-02-03] MEDS: AMINO ACIDS/PROTEIN HYDROLYS 30 ML LIQUID.PKT GT SCH (09:39)
[2023-02-03] MEDS: LACTOBACILLUS ACIDOPHILUS 1 TABLET PO SCH (09:39)
[2023-02-03] MEDS: levETIRAcetam 500 MG/5 ML INJECTION VIAL IVPB SCH ×2 (09:39→21:30)
[2023-02-03] MEDS: LEVOTHYROXINE SODIUM 100 MCG 5 ML VIAL IVPUSH SCH (09:39)
[2023-02-03] MEDS: PANTOPRAZOLE SODIUM 40 MG VIAL IVPUSH SCH (09:39)
[2023-02-03] MEDS: amLODIPine BESYLATE 10 MG TABLET (FP) NGT SCH (09:39)
[2023-02-03] MEDS: CHLORHEXIDINE GLUCONATE 4% CLEANSER FOR DECOLONIZATION TP SCH (21:30)
[2023-02-03] MEDS: ATORVASTATIN CA 80 MG TABLET (FP) PO SCH (21:32)
[2023-02-03] MEDS ORDERED: INSULIN (LEVEMIR) 100 UNITS/ML UNITS SQ SCH (22:00)
[2023-02-04] MEDS: INSULIN SLIDING SCALE (NOVOLOG) 1 VIAL SQ SCH ×4 (06:23→21:13)
[2023-02-04] MEDS: AMINO ACIDS/PROTEIN HYDROLYS 30 ML LIQUID.PKT GT SCH (08:00)
[2023-02-04] MEDS: amLODIPine BESYLATE 10 MG TABLET (FP) NGT SCH (09:20)
[2023-02-04] MEDS: LOSARTAN POTASSIUM 50 MG TABLET PO SCH (09:20)
[2023-02-04] MEDS: levETIRAcetam 500 MG/5 ML INJECTION VIAL IVPB SCH ×2 (09:20→21:04)
[2023-02-04] MEDS: LACTOBACILLUS ACIDOPHILUS 1 TABLET PO SCH (09:20)
[2023-02-04] MEDS: PANTOPRAZOLE SODIUM 40 MG VIAL IVPUSH SCH (09:20)
[2023-02-04] MEDS: LEVOTHYROXINE SODIUM 100 MCG 5 ML VIAL IVPUSH SCH (09:22)
[2023-02-04] MEDS ORDERED: ALBUTEROL SO4 2.5/IPRATROPIUM 0.5 INH SOL 3 ML VIAL.NEB. NEB PRN (10:43)
[2023-02-04] MEDS: methylPREDNISolone NA SUCC 40 MG/1 ML VIAL IVPUSH SCH ×3 (11:10→21:05)
[2023-02-04] MEDS: ALBUTEROL SO4 2.5/IPRATROPIUM 0.5 INH SOL 3 ML VIAL.NEB. NEB SCH ×3 (12:57→20:53)
[2023-02-04] MEDS ORDERED: GLUCAGON 1 MG KIT ONE (14:04)
[2023-02-04] MEDS ORDERED: GLUCAGON 1 MG KIT IVPUSH ONE (14:15)
[2023-02-04] MEDS ORDERED: FENTANYL CITRATE/PF 50 MCG/ML VIAL ONE (14:18)
[2023-02-04] MEDS ORDERED: FENTANYL CITRATE/PF 50 MCG/ML VIAL IVPUSH ONE (14:19)
[2023-02-04] MEDS ORDERED: INSULIN (LEVEMIR) 100 UNITS/ML UNITS SQ ONE ×2 (17:13→18:35)
[2023-02-04] MEDS: CHLORHEXIDINE GLUCONATE 4% CLEANSER FOR DECOLONIZATION TP SCH (21:06)
[2023-02-04] MEDS: ATORVASTATIN CA 80 MG TABLET (FP) PO SCH (21:06)
[2023-02-04] MEDS ORDERED: INSULIN (NOVOLOG) ASPART 100 UNITS/ML 10ML VIAL ONE (21:12)
[2023-02-05] MEDS: methylPREDNISolone NA SUCC 40 MG/1 ML VIAL IVPUSH SCH ×3 (02:34→17:24)
[2023-02-05] MEDS: INSULIN SLIDING SCALE (NOVOLOG) 1 VIAL SQ SCH ×4 (06:06→21:23)
[2023-02-05 07:34] LABS: BASO % 0.3 % (0-2.0); HEMATOCRIT 30.8 % (32.4-45.2); HEMOGLOBIN 10.2 GM/dL (10.7-15.3); LYMPH % 7.7 % (8-40); MCH 30.5 pg (25.7-33.7); MCHC 33.1 g/dl (32.0-36.0); MEAN CELL VOLUME 92.2 fl (80-96); MONO % 2.3 % (3.8-10.2); NEUT % 89.7 % (42.8-82.8); PLATELET COUNT 258 10^3/uL (134-434); RBC 3.34 M/mm3 (3.60-5.2); RDW 14.8 % (11.6-15.6); WHITE BLOOD COUNT 11.1 K/mm3 (4.0-10.0)
[2023-02-05 07:56] LABS: POTASSIUM 4.8 mmol/L (3.5-5.1)
[2023-02-05] MEDS: ALBUTEROL SO4 2.5/IPRATROPIUM 0.5 INH SOL 3 ML VIAL.NEB. NEB SCH ×2 (08:05→11:21)
[2023-02-05 08:06] LABS: BILIRUBIN,TOTAL 0.3 mg/dL (0.2-1); BLOOD UREA NITROGEN 33.1 mg/dL (7-18)
[2023-02-05 08:07] LABS: CREATININE 0.8 mg/dL (0.55-1.3)
[2023-02-05 08:09] LABS: TOT PROT 6.6 g/dl (6.4-8.2)
[2023-02-05 08:31] LABS: ALBUMIN 2.2 g/dl (3.4-5.0); CALCIUM 9.3 mg/dL (8.5-10.1)
[2023-02-05] MEDS: amLODIPine BESYLATE 10 MG TABLET (FP) NGT SCH (09:37)
[2023-02-05] MEDS: AMINO ACIDS/PROTEIN HYDROLYS 30 ML LIQUID.PKT GT SCH (09:37)
[2023-02-05] MEDS: LACTOBACILLUS ACIDOPHILUS 1 TABLET PO SCH (09:37)
[2023-02-05] MEDS: LOSARTAN POTASSIUM 50 MG TABLET PO SCH (09:37)
[2023-02-05] MEDS: levETIRAcetam 500 MG/5 ML INJECTION VIAL IVPB SCH ×2 (09:41→21:22)
[2023-02-05] MEDS: PANTOPRAZOLE SODIUM 40 MG VIAL IVPUSH SCH (09:41)
[2023-02-05] MEDS: LEVOTHYROXINE SODIUM 100 MCG 5 ML VIAL IVPUSH SCH (09:42)
[2023-02-05] MEDS ORDERED: INSULIN (NOVOLOG) ASPART 100 UNITS/ML 10ML VIAL ONE (11:23)
[2023-02-05] MEDS: ACETYLCYSTEINE 20% 200MG/ML 4 ML VIAL *FOR ORAL / INH USE ONLY NEB SCH ×3 (12:05→19:56)
[2023-02-05] MEDS: ALBUTEROL SO4 0.083% IH SOL 2.5 MG/3 ML VIAL.NEB. NEB SCH ×3 (12:05→19:56)
[2023-02-05] MEDS: SILVER SULFADIAZINE 1% TOP CREAM 400 GM JAR TP SCH (17:24)
[2023-02-05] MEDS: CHLORHEXIDINE GLUCONATE 4% CLEANSER FOR DECOLONIZATION TP SCH (21:22)
[2023-02-05] MEDS: ATORVASTATIN CA 80 MG TABLET (FP) PO SCH (21:22)
[2023-02-06] MEDS: methylPREDNISolone NA SUCC 40 MG/1 ML VIAL IVPUSH SCH ×3 (02:16→17:19)
[2023-02-06] MEDS: INSULIN SLIDING SCALE (NOVOLOG) 1 VIAL SQ SCH ×4 (06:10→21:24)
[2023-02-06] MEDS: ACETYLCYSTEINE 20% 200MG/ML 4 ML VIAL *FOR ORAL / INH USE ONLY NEB SCH ×4 (07:25→20:45)
[2023-02-06] MEDS: ALBUTEROL SO4 0.083% IH SOL 2.5 MG/3 ML VIAL.NEB. NEB SCH ×4 (07:25→20:45)
[2023-02-06] MEDS ORDERED: INSULIN (NOVOLOG) ASPART 100 UNITS/ML 10ML VIAL ONE ×2 (08:20→16:57)
[2023-02-06] MEDS: AMINO ACIDS/PROTEIN HYDROLYS 30 ML LIQUID.PKT GT SCH (08:41)
[2023-02-06] MEDS: amLODIPine BESYLATE 10 MG TABLET (FP) NGT SCH (09:06)
[2023-02-06] MEDS: LOSARTAN POTASSIUM 50 MG TABLET PO SCH (09:06)
[2023-02-06] MEDS: levETIRAcetam 500 MG/5 ML INJECTION VIAL IVPB SCH ×2 (09:07→21:24)
[2023-02-06] MEDS: LACTOBACILLUS ACIDOPHILUS 1 TABLET PO SCH (09:07)
[2023-02-06] MEDS: LEVOTHYROXINE SODIUM 100 MCG 5 ML VIAL IVPUSH SCH (09:07)
[2023-02-06] MEDS: PANTOPRAZOLE SODIUM 40 MG VIAL IVPUSH SCH (09:07)
[2023-02-06] MEDS: SILVER SULFADIAZINE 1% TOP CREAM 400 GM JAR TP SCH (09:07)
[2023-02-06] MEDS: HEPARIN NA (PORCINE) 5,000 UNITS/ML 1ML VIAL SQ SCH ×3 (11:03→21:24)
[2023-02-06] MEDS: INSULIN (LEVEMIR) 100 UNITS/ML UNITS SQ SCH (11:20)
[2023-02-06] MEDS ORDERED: INSULIN (LEVEMIR) 100 UNITS/ML UNITS SQ ONE (11:23)
[2023-02-06] MEDS: CHLORHEXIDINE GLUCONATE 4% CLEANSER FOR DECOLONIZATION TP SCH (21:20)
[2023-02-06] MEDS: ATORVASTATIN CA 80 MG TABLET (FP) PO SCH (21:24)
[2023-02-07] MEDS: methylPREDNISolone NA SUCC 40 MG/1 ML VIAL IVPUSH SCH ×2 (01:26→10:00)
[2023-02-07] MEDS: HEPARIN NA (PORCINE) 5,000 UNITS/ML 1ML VIAL SQ SCH ×3 (06:07→22:07)
[2023-02-07] MEDS: INSULIN SLIDING SCALE (NOVOLOG) 1 VIAL SQ SCH ×3 (06:12→22:16)
[2023-02-07] MEDS: ALBUTEROL SO4 0.083% IH SOL 2.5 MG/3 ML VIAL.NEB. NEB SCH ×4 (08:05→20:35)
[2023-02-07] MEDS: ACETYLCYSTEINE 20% 200MG/ML 4 ML VIAL *FOR ORAL / INH USE ONLY NEB SCH ×4 (08:05→20:35)
[2023-02-07] MEDS ORDERED: DEXTROSE 50%-WATER 25 GM/50 ML DISP.SYRIN IVPUSH PRN (08:09)
[2023-02-07] MEDS: LOSARTAN POTASSIUM 50 MG TABLET GT SCH (09:59)
[2023-02-07] MEDS: LACTOBACILLUS ACIDOPHILUS 1 TABLET PO SCH (09:59)
[2023-02-07] MEDS: levETIRAcetam 500 MG/5 ML INJECTION VIAL IVPB SCH ×2 (09:59→22:06)
[2023-02-07] MEDS: amLODIPine BESYLATE 10 MG TABLET (FP) NGT SCH (09:59)
[2023-02-07] MEDS: AMINO ACIDS/PROTEIN HYDROLYS 30 ML LIQUID.PKT GT SCH (09:59)
[2023-02-07] MEDS: PANTOPRAZOLE SODIUM 40 MG VIAL IVPUSH SCH (10:00)
[2023-02-07] MEDS: INSULIN (LEVEMIR) 100 UNITS/ML UNITS SQ SCH ×2 (10:00→23:27)
[2023-02-07] MEDS: SILVER SULFADIAZINE 1% TOP CREAM 400 GM JAR TP SCH (10:00)
[2023-02-07] MEDS: LEVOTHYROXINE SODIUM 100 MCG 5 ML VIAL IVPUSH SCH (10:00)
[2023-02-07] MEDS ORDERED: INSULIN SLIDING SCALE (NOVOLOG) 1 VIAL SQ SCH (11:00)
[2023-02-07 11:30] LABS: BASO % 0.2 % (0-2.0); HEMATOCRIT 31.2 % (32.4-45.2); HEMOGLOBIN 10.1 GM/dL (10.7-15.3); MCH 30.1 pg (25.7-33.7); MCHC 32.4 g/dl (32.0-36.0); MEAN CELL VOLUME 93.1 fl (80-96); MEAN PLT VOLUME 9.6 fl (7.5-11.1); MONO % 6.1 % (3.8-10.2); NEUT % 89.7 % (42.8-82.8); PLATELET COUNT 283 10^3/uL (134-434); RBC 3.35 M/mm3 (3.60-5.2); RDW 15.5 % (11.6-15.6); WHITE BLOOD COUNT 14.8 K/mm3 (4.0-10.0)
[2023-02-07 11:54] LABS: CHLORIDE 116 mmol/L (98-107); POTASSIUM 4.7 mmol/L (3.5-5.1); SODIUM 146 mmol/L (136-145)
[2023-02-07 11:59] LABS: ANION GAP 8 MMOL/L (8-16); CALCIUM 9.3 mg/dL (8.5-10.1); CO2 22 mmol/L (21-32)
[2023-02-07 12:01] LABS: ALBUMIN 2.4 g/dl (3.4-5.0)
[2023-02-07 12:03] LABS: SGOT/AST 16 U/L (15-37); SGPT/ALT 39 U/L (13-61)
[2023-02-07 12:05] LABS: ALK PHOS 129 U/L (45-117); BILIRUBIN,TOTAL 0.2 mg/dL (0.2-1); TOT PROT 6.6 g/dl (6.4-8.2)
[2023-02-07 12:08] LABS: BLOOD UREA NITROGEN 61.2 mg/dL (7-18); GLUCOSE,RANDOM 530 mg/dL (74-106)
[2023-02-07] MEDS ORDERED: INSULIN (NOVOLOG) ASPART 100 UNITS/ML 10ML VIAL SQ ONE (14:00)
[2023-02-07] MEDS ORDERED: hydrALAZINE HCL 20 MG/ML VIAL IVPB ONE (17:37)
[2023-02-07] MEDS: ACETAMINOPHEN 1000 MG/100 ML BAG IVPB PRN (19:50)
[2023-02-07] MEDS ORDERED: ATORVASTATIN CA 80 MG TABLET (FP) GT SCH (22:00)
[2023-02-07] MEDS ORDERED: INSULIN (LEVEMIR) 100 UNITS/ML UNITS SQ SCH (22:00)
[2023-02-07] MEDS ORDERED: methylPREDNISolone NA SUCC 40 MG/1 ML VIAL IVPUSH SCH (22:00)
[2023-02-08] MEDS: HEPARIN NA (PORCINE) 5,000 UNITS/ML 1ML VIAL SQ SCH ×3 (05:14→22:32)
[2023-02-08] MEDS: INSULIN SLIDING SCALE (NOVOLOG) 1 VIAL SQ SCH ×4 (06:03→22:45)
[2023-02-08] MEDS: INSULIN (LEVEMIR) 100 UNITS/ML UNITS SQ SCH ×2 (06:03→22:44)
[2023-02-08] MEDS: ACETYLCYSTEINE 20% 200MG/ML 4 ML VIAL *FOR ORAL / INH USE ONLY NEB SCH ×2 (08:39→11:46)
[2023-02-08] MEDS: ALBUTEROL SO4 0.083% IH SOL 2.5 MG/3 ML VIAL.NEB. NEB SCH ×2 (08:40→11:46)
[2023-02-08] MEDS: AMINO ACIDS/PROTEIN HYDROLYS 30 ML LIQUID.PKT GT SCH (09:51)
[2023-02-08] MEDS: PANTOPRAZOLE SODIUM 40 MG VIAL IVPUSH SCH (09:51)
[2023-02-08] MEDS: levETIRAcetam 500 MG/5 ML INJECTION VIAL IVPB SCH ×2 (09:51→22:32)
[2023-02-08] MEDS: LOSARTAN POTASSIUM 50 MG TABLET GT SCH (09:51)
[2023-02-08] MEDS: LEVOTHYROXINE SODIUM 100 MCG 5 ML VIAL IVPUSH SCH (09:53)
[2023-02-08] MEDS: amLODIPine BESYLATE 10 MG TABLET (FP) NGT SCH (09:54)
[2023-02-08] MEDS: LACTOBACILLUS ACIDOPHILUS 1 TABLET PO SCH (09:54)
[2023-02-08] MEDS: CLOPIDOGREL BISULFATE 75 MG TABLET (FP) GT SCH (09:55)
[2023-02-08] MEDS ORDERED: METOPROLOL TARTRATE 25 MG TABLET (FP) GT SCH (10:00)
[2023-02-08] MEDS ORDERED: CLOPIDOGREL BISULFATE 75 MG TABLET (FP) PO SCH (10:00)
[2023-02-08] MEDS ORDERED: predniSONE 20 MG TABLET (UD) GT SCH (10:00)
[2023-02-08] MEDS ORDERED: METOPROLOL TARTRATE 25 MG TABLET (FP) PO SCH (10:00)
[2023-02-08] MEDS ORDERED: INSULIN (NOVOLOG) ASPART 100 UNITS/ML 10ML VIAL SQ SCH (11:00)
[2023-02-08] MEDS: SILVER SULFADIAZINE 1% TOP CREAM 400 GM JAR TP SCH (11:20)
[2023-02-08] MEDS: ACETAMINOPHEN 1000 MG/100 ML BAG IVPB PRN (23:11)
[2023-02-09] MEDS: HEPARIN NA (PORCINE) 5,000 UNITS/ML 1ML VIAL SQ SCH ×3 (05:08→23:45)
[2023-02-09] MEDS: INSULIN SLIDING SCALE (NOVOLOG) 1 VIAL SQ SCH ×4 (06:03→23:49)
[2023-02-09] MEDS: INSULIN (LEVEMIR) 100 UNITS/ML UNITS SQ SCH (06:03)
[2023-02-09] MEDS: AMINO ACIDS/PROTEIN HYDROLYS 30 ML LIQUID.PKT GT SCH (09:02)
[2023-02-09] MEDS: LEVOTHYROXINE SODIUM 100 MCG 5 ML VIAL IVPUSH SCH (09:47)
[2023-02-09] MEDS: levETIRAcetam 500 MG/5 ML INJECTION VIAL IVPB SCH ×2 (09:47→23:45)
[2023-02-09] MEDS: PANTOPRAZOLE SODIUM 40 MG VIAL IVPUSH SCH (09:47)
[2023-02-09] MEDS: CLOPIDOGREL BISULFATE 75 MG TABLET (FP) GT SCH (09:48)
[2023-02-09] MEDS: SILVER SULFADIAZINE 1% TOP CREAM 400 GM JAR TP SCH (09:49)
[2023-02-09] MEDS: ACETAMINOPHEN 1000 MG/100 ML BAG IVPB PRN (17:31)
[2023-02-09] MEDS: MORPHINE SULFATE/0.9% NACL/PF 100 MG/100 ML BAG IVPB SCH ×2 (18:29→19:02)
[2023-02-10] MEDS: HEPARIN NA (PORCINE) 5,000 UNITS/ML 1ML VIAL SQ SCH ×3 (06:47→22:44)
[2023-02-10] MEDS: INSULIN (LEVEMIR) 100 UNITS/ML UNITS SQ SCH ×3 (06:48→22:44)
[2023-02-10] MEDS: INSULIN SLIDING SCALE (NOVOLOG) 1 VIAL SQ SCH ×4 (06:49→22:46)
[2023-02-10] MEDS: CLOPIDOGREL BISULFATE 75 MG TABLET (FP) GT SCH (11:11)
[2023-02-10] MEDS: AMINO ACIDS/PROTEIN HYDROLYS 30 ML LIQUID.PKT GT SCH (11:11)
[2023-02-10] MEDS: PANTOPRAZOLE SODIUM 40 MG VIAL IVPUSH SCH (11:23)
[2023-02-10] MEDS: LEVOTHYROXINE SODIUM 100 MCG 5 ML VIAL IVPUSH SCH (11:31)
[2023-02-10] MEDS: SILVER SULFADIAZINE 1% TOP CREAM 400 GM JAR TP SCH (11:46)
[2023-02-10] MEDS: SCOPOLAMINE HYDROBROMIDE 1 PATCH PATCH.TD72 TD SCH (11:46)
[2023-02-10] MEDS: levETIRAcetam 500 MG/5 ML INJECTION VIAL IVPB SCH ×2 (13:00→22:44)
[2023-02-10] MEDS: ACETAMINOPHEN 1000 MG/100 ML BAG IVPB PRN (13:25)
[2023-02-10] MEDS ORDERED: SODIUM CHLORIDE 500 ML IV ONE (19:18)
[2023-02-10] MEDS: MORPHINE SULFATE/0.9% NACL/PF 100 MG/100 ML BAG IVPB SCH (20:15)
[2023-02-11] MEDS: INSULIN (LEVEMIR) 100 UNITS/ML UNITS SQ SCH (06:05)
[2023-02-11] MEDS: HEPARIN NA (PORCINE) 5,000 UNITS/ML 1ML VIAL SQ SCH ×2 (06:05→13:38)
[2023-02-11] MEDS: INSULIN SLIDING SCALE (NOVOLOG) 1 VIAL SQ SCH ×2 (06:15→11:57)
[2023-02-11] MEDS: AMINO ACIDS/PROTEIN HYDROLYS 30 ML LIQUID.PKT GT SCH (07:48)
[2023-02-11] MEDS: ACETAMINOPHEN 1000 MG/100 ML BAG IVPB PRN ×2 (07:48→22:29)
[2023-02-11] MEDS: PANTOPRAZOLE SODIUM 40 MG VIAL IVPUSH SCH (09:37)
[2023-02-11] MEDS: LEVOTHYROXINE SODIUM 100 MCG 5 ML VIAL IVPUSH SCH (09:37)
[2023-02-11] MEDS: levETIRAcetam 500 MG/5 ML INJECTION VIAL IVPB SCH (09:37)
[2023-02-11] MEDS: CLOPIDOGREL BISULFATE 75 MG TABLET (FP) GT SCH (09:37)
[2023-02-11] MEDS: SILVER SULFADIAZINE 1% TOP CREAM 400 GM JAR TP SCH (09:38)
[2023-02-11] MEDS: MORPHINE SULFATE/0.9% NACL/PF 100 MG/100 ML BAG IVPB SCH (18:53)
[2023-02-12] MEDS: SILVER SULFADIAZINE 1% TOP CREAM 400 GM JAR TP SCH (15:00)
[2023-02-12] MEDS: MORPHINE SULFATE/0.9% NACL/PF 100 MG/100 ML BAG IVPB SCH (18:16)
[2023-02-13] MEDS: ACETAMINOPHEN 1000 MG/100 ML BAG IVPB PRN ×2 (04:39→22:28)
[2023-02-13] MEDS: SILVER SULFADIAZINE 1% TOP CREAM 400 GM JAR TP SCH (10:56)
[2023-02-13] MEDS: SCOPOLAMINE HYDROBROMIDE 1 PATCH PATCH.TD72 TD SCH (10:56)
[2023-02-13] MEDS: MORPHINE SULFATE/0.9% NACL/PF 100 MG/100 ML BAG IVPB SCH (18:25)
[2023-02-13 22:14] VITALS: RESP 20
[2023-02-14] MEDS: SILVER SULFADIAZINE 1% TOP CREAM 400 GM JAR TP SCH (09:59)
[2023-02-14] MEDS: MORPHINE SULFATE/0.9% NACL/PF 100 MG/100 ML BAG IVPB SCH (18:39)
[2023-02-15] MEDS: ACETAMINOPHEN 1000 MG/100 ML BAG IVPB PRN (06:01)
[2023-02-15] MEDS: SILVER SULFADIAZINE 1% TOP CREAM 400 GM JAR TP SCH (10:29)
[2023-02-15 10:36] VITALS: PULSE 95
[2023-02-15 14:20] VITALS: BP 137/74; TEMP 98.6
[2023-02-15] MEDS: MORPHINE SULFATE/0.9% NACL/PF 100 MG/100 ML BAG IVPB SCH (18:34)
== END 2023-02-16 02:27 | disposition expired | DRG 4 ==
LOC: JER 09:00 → JERBED 09:34 → JICU 13:07 → J5S 02-06 23:19 → J7W 02-10 18:43
PROVIDERS: ADMIT Internal Medicine
PROC: 5A1955Z Respiratory Ventilation, Greater than 96 Consecutive Hours (ICD-10-PCS; 2023-01-17)
PROC: 0BH17EZ Insertion of Endotracheal Airway into Trachea, Via Natural or Artificial Opening (ICD-10-PCS; 2023-01-17)
PROC: 5A12012 Performance of Cardiac Output, Single, Manual (ICD-10-PCS; 2023-01-17)
PROC: 0B113F4 Bypass Trachea to Cutaneous with Tracheostomy Device, Percutaneous Approach (ICD-10-PCS; principal; 2023-01-29)
PROC: 0BJ08ZZ Inspection of Tracheobronchial Tree, Via Natural or Artificial Opening Endoscopic (ICD-10-PCS; 2023-01-29)
PROC: 05HF33Z Insertion of Infusion Device into Left Cephalic Vein, Percutaneous Approach (ICD-10-PCS; 2023-01-29)
PROC: 0DH63UZ Insertion of Feeding Device into Stomach, Percutaneous Approach (ICD-10-PCS; 2023-02-04)
PROC: BD12YZZ Fluoroscopy of Stomach using Other Contrast (ICD-10-PCS; 2023-02-04)
DX: I46.9 Cardiac arrest, cause unspecified (principal); G93.6 Cerebral edema; J69.0 Pneumonitis due to inhalation of food and vomit; N17.0 Acute kidney failure with tubular necrosis; J96.90 Respiratory failure, unspecified, unspecified whether with hypoxia or hypercapnia; N17.9 Acute kidney failure, unspecified; G93.1 Anoxic brain damage, not elsewhere classified; E87.1 Hypo-osmolality and hyponatremia; R64 Cachexia; E87.0 Hyperosmolality and hypernatremia; E87.21 Acute metabolic acidosis; J98.11 Atelectasis; I47.20 Ventricular tachycardia, unspecified; E03.9 Hypothyroidism, unspecified; I12.9 Hypertensive chronic kidney disease with stage 1 through stage 4 chronic kidney disease, or unspecified chronic kidney disease; J45.909 Unspecified asthma, uncomplicated; J44.9 Chronic obstructive pulmonary disease, unspecified; E11.22 Type 2 diabetes mellitus with diabetic chronic kidney disease; E78.00 Pure hypercholesterolemia, unspecified; E78.5 Hyperlipidemia, unspecified; K21.9 Gastro-esophageal reflux disease without esophagitis; Z95.1 Presence of aortocoronary bypass graft; E11.65 Type 2 diabetes mellitus with hyperglycemia; R33.9 Retention of urine, unspecified; I25.119 Atherosclerotic heart disease of native coronary artery with unspecified angina pectoris; N18.9 Chronic kidney disease, unspecified
CPT/HCPCS: 0241U-QW; 36415; 36600; 49440; 70450-TC; 71045-TC-FY; 74018-TC-FY; 80048; 80053; 81003; 82340; 82550; 82553; 82570; 82803; 82962; 83036; 83605; 83735; 83930; 83935; 84100; 84133; 84156; 84300; 84443; 84484; 85025; 85027; 85610; 85730; 86850; 86900; 86901; 87040; 87070; 87077; 87086; 87205; 87324; 87449; 87633; 93005; 93010; 93306-TC; 94002; 94640; 95816; 99291; J1644